=== PATIENT | male | born 1980 | race African-American/Black ===

== ENCOUNTER → 2022-12-04 13:23 | Outpatient (BNVA) | payer OTHER, SELFPAY | PROVIDERS: PCP Family Medicine; Visit Provider Urology | DX: Z31.69 Encounter for other general counseling and advice on procreation (principal); N46.9 Male infertility, unspecified | CPT/HCPCS: 99202 ==

== ENCOUNTER 2023-01-02 15:04 | Outpatient (REF) | payer OTHER, SELFPAY ==
--- NOTE | ~2023-01-02 | US_ITS ---
EXAMINATION: US SCROTUM CLINICAL INFORMATION: Male infertility, unspecified. COMPARISON: None available. TECHNIQUE: A sonogram of the scrotum was performed assessing sanchez-scale appearance and color Doppler flow. Spectral Doppler analysis of the arterial and venous flow were performed in the testes bilaterally. FINDINGS: RIGHT: Right testicle measures 3.4 x 1.6 x 1.8 cm, volume 5.1 mL. No focal testicular parenchymal lesions are visualized. Spectral Doppler analysis of the arterial and venous flow is normal in the right testis. Right epididymal head is normal in size. No right hydrocele or varicocele is seen. Right epididymal Doppler flow is normal. LEFT: Left testicle measures 2.8 x 1.3 x 2.1 cm, volume 4.0 mL. No focal testicular parenchymal lesions are visualized. Spectral Doppler analysis of the arterial and venous flow is normal in the left testis. Left epididymal head is normal in size. No left hydrocele is seen. There are left varicoceles. Left epididymal Doppler flow is normal. US/US scrotum IMPRESSION: There are left varicoceles. The examination is otherwise unremarkable.
== END 2023-01-02 15:05 | disposition home or self-care (01) ==
LOC: HO.US 15:04
PROVIDERS: PCP Family Medicine; Visit Provider Urology
DX: N46.9 Male infertility, unspecified (principal)
CPT/HCPCS: 76870

== ENCOUNTER → 2023-01-15 09:54 | Outpatient (BNVA) | payer OTHER, SELFPAY | PROVIDERS: PCP Family Medicine; Visit Provider Urology | DX: N46.9 Male infertility, unspecified (principal); N46.01 Organic azoospermia | CPT/HCPCS: 99212 ==

== ENCOUNTER → 2023-02-08 12:56 | Outpatient (BNVA) | payer OTHER, SELFPAY | PROVIDERS: PCP Family Medicine; Visit Provider Urology | DX: N46.01 Organic azoospermia (principal) | CPT/HCPCS: 99212 ==

== ENCOUNTER 2023-03-20 08:02 | Outpatient (REF) | payer OTHER, SELFPAY ==
[2023-03-20 08:07] VITALS: BMI 27.7
[2023-03-20 08:08] VITALS: BP 111/64; PULSE 64; RESP 16; TEMP 36.2; O2SAT 96
[2023-03-20 09:20] VITALS: BP 106/56; PULSE 50; RESP 16; O2SAT 98
--- NOTE | 2023-03-20 09:49 | W.PM.OPN ---
Operative Note Operative Note Date of Service: 03/20/23 Narrative: PreOperative Diagnosis: Male infertility Post Operative Diagnosis: Male infertility Procedure: Testicular biopsy Surgeon: Dr Rafiq Salcido Anesthesia: Local Indications for procedure: Male infertility with no sperm seen Procedure: After informed consent was verified the patient was brought to the operating room and placed in a supine position. Anesthesia was administered per protocol. The patient was prepped and draped in a sterile fashion. Safety pause time-out was performed. Local anesthetic infiltrated into left testicular cord and skin on scrotum. Small incision made on the scrotal skin. Dissection performed down to the level of the tunica. Tunica opened. Four 0 Vicryl used as stay sutures on testicle. Testicle open small amount of tissue removed. 4-0 Vicryl stay suture tied Vicryl suture then used to close opening in tunic Skin closed with interrupted 4-0 chromic suture Patient tolerated procedure well was instructed on postprocedure care. Pathology: Testicular biopsy Drains: []
== END 2023-03-20 08:03 | disposition home or self-care (01) ==
LOC: HO.MS 08:02
PROVIDERS: PCP Family Medicine; Visit Provider Urology
PROC: (CPT 54505; principal; 2023-03-20 08:00)
DX: N46.01 Organic azoospermia (principal); N46.9 Male infertility, unspecified
CPT/HCPCS: 54505; 88305

== ENCOUNTER → 2023-03-28 13:46 | Outpatient (BNVA) | payer OTHER, SELFPAY | PROVIDERS: PCP Family Medicine; Visit Provider Urology ==

== ENCOUNTER 2023-08-09 12:06 | Outpatient (AMB) | payer OTHER, SELFPAY ==
[2023-08-09 12:15] VITALS: BP 106/70; PULSE 68; O2SAT 98; BMI 27.2
--- NOTE | 2023-08-09 12:15 | MHC.PC.OV ---
Vital Signs 08/09/23 12:15 Height 5 ft 10 in Weight 189 lb 4 oz BMI 27.2 BP 106/70 Blood Pressure Location Lt brachial Position Sitting Pulse 68 Pulse Source Pulse Oximeter Pulse Oximetry (%) 98 Oxygen Delivery Method Room Air Intake Visit Reasons: CPE Intake Note: Patient is here for a physical today. Patient would like to talk about referral about IVF referral. Patient would like a flu shot today. Allergies aspirin Allergy (Mild, Verified 08/09/23 12:17) Swelling shellfish Allergy (Mild, Uncoded 08/09/23 12:17) Swelling Tobacco use date assessed: 08/09/23 Dental Screening Dental Screen Date: 08/09/23 Did you have a dental visit in the last 12 months?: Yes Did you have a dental problem in the last 6 months where you did not have access to dental care?: No Was dental information given to patient?: Patient has dentist HPI CPE HPI Details 42 y/o male presents for a CPE with f/u labs and health maintenance. No recent labs to review. [facility] Social History Housing: House Patient Tobacco Use Status: Never used Tobacco e-Cigarette/Vaping Use: Never Used Second Hand Smoke Exposure: No service: Yes Current occupational status: employed Current occupation: [employer] Cognitive needs: No Hearing needs: No Vision needs: No Review of Systems Const Denies chills, Denies fatigue, Denies fever(s), Denies headache(s) and Denies weakness Eyes Denies change in vision ENT Denies dizziness, Denies headache(s), Denies hearing loss, Denies nasal congestion, Denies sinus pain, Denies sinus pressure and Denies sore throat Card Denies chest pain, Denies lightheadedness, Denies dyspnea and Denies other (palpitations) Resp Denies cough, Denies dyspnea and Denies wheezing GI Denies abdominal pain, Denies melena, Denies hematochezia, Denies change in bowel habits, Denies dyspepsia and Denies nausea Denies hematuria and Denies dysuria Musc Denies abnormal gait, Denies myalgias, Denies arthralgias, Denies numbness and Denies tingling Skin/Breast Denies rash, Denies unusual bruising and Denies wounds Neuro Denies abnormal gait, Denies dizziness, Denies headache(s), Denies memory loss, Denies numbness, Denies Sensory deficit (Neuro), Denies tingling and Denies weakness Psych Denies anxiety, Denies depression and Denies memory loss Endo Denies cold intolerance, Denies fatigue, Denies heat intolerance, Denies polydipsia and Denies polyuria Lang/Lymph Denies easy bleeding and Denies easy bruising Aller/Immun Denies wheezing Physical exam (Primary Care) Vital Signs: Last Vital Signs Pulse 68 08/09/23 12:15 BP 106/70 08/09/23 12:15 Pulse Ox 98 08/09/23 12:15 Oxygen Delivery Method Room Air 08/09/23 12:15 BMI result Body Mass Index 27.2 Tobacco/Smoking Status: Tobacco use Status Tobacco use date assessed 08/09/23 08/09/23 12:28 Patient Tobacco Use Status Never used Tobacco 08/09/23 12:28 e-Cigarette/Vaping Use Never Used 08/09/23 12:28 Const General: no acute distress, well developed, alert and awake Nutritional Appearance: well nourished Orientation/consciousness: patient oriented x3 HENMT Head: Yes normocephalic and Yes atraumatic Ears: hearing grossly normal bilaterally and TM's normal bilaterally General nose exam: Normal external nose present and Normal nares present Mouth: Normal oral and palatal mucosa present and moist mucous membranes Teeth and gingiva: dentition normal Throat: Yes posterior oropharynx normal Eyes General: appearance normal, both eyes and all related structures Pupils: Equal, round and reactive pupils present and Pupil accommodation reflex normal EOM: EOMs intact bilaterally Neck Neck: Yes normal visual inspection, Yes no lymphadenopathy and Yes trachea midline Thyroid: Thyroid normal Carotids: no bruits Lymphatic: no lymphadenopathy noted Chest Chest palpation & inspection: normal inspection of the chest Resp Effort & Inspection: normal respiratory effort Auscultation: clear to auscultation bilaterally Cardio Rate: regular rate Rhythm: regular rhythm Heart sounds: S1 normal heart sound present, S2 normal heart sound present, no gallops, no murmurs and no rubs Bruits: no abdominal aortic bruits and no carotid bruits GI Palpation (GI): No Abdominal aortic bruit present, Soft to palpation, nontender, No hepatosplenomegaly present and No Rebound tenderness present Auscultation: normal bowel sounds General: Yes no CVA tenderness Back/Spine/Pelvis Back: no CVA tenderness Cervical Spine: cervical ROM normal and No Cervical spine tenderness Thoracic/Lumbar Spine: thoraco-lumbar ROM normal, No pain with thoraco-lumbar ROM, No thoracic spinal tenderness and No lumbar spinal tenderness Skin Lesions: no lesions Rashes: no rashes Trauma: no lacerations or abrasions Wounds: no wounds Nails: normal Neuro General: patient oriented x3 Cranial nerves: Yes Equal, round and reactive pupils present Cognition (Neuro): normal cognition Gait exam (Neuro): Normal gait present Motor exam (neuro): 5/5 motor strength present throughout Sensory Exam: No Sensory deficit (Neuro) Deep tendon reflexes (DTR's): Right patellar reflex intensity grade: 2+ and Left patellar reflex intensity grade: 2+ Extrem General: Yes normal to inspection and No edema Psych Appearance: grossly normal Affect: normal affect Attitude: cooperative Thought process: Normal thought process present Assessment and Plan Assessment & Plan (1) Adult general medical exam: Code(s): Z00.00 - Encounter for general adult medical examination without abnormal findings Plan: 42-year-old?male?presents?for?complete?physical?exam Encouraged?healthy?diet?with?active?lifestyle?and?plenty?of?exercise (2) Infertility counseling: Code(s): Z31.69 - Encounter for other general counseling and advice on procreation Plan: Followed?by?urology?an?infertility?specialist?in?[place]. Will?discuss?referral?to?IVF?via?his?infertility?specialist. 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 Medications: Discontinued oxycodone-acetaminophen 5-325 mg Partial Fill upon patient request. Discontinued Reason: Patient Completed Course 1 tab PO Q4H 7 days PRN 14 tabs 0RF pain (scale score 4-6) Coding Level of Care Code Est Pt Level 3 (78073) Est Pt Prev Care 40-64y(77299) Diagnoses Adult general medical exam Z00.00 Infertility counseling Z31.69 Male pattern baldness L64.9
== END 2023-08-09 12:50 | disposition home or self-care (01) ==
PROVIDERS: PCP Family Medicine; Visit Provider Family Medicine
DX: Z00.00 Encounter for general adult medical examination without abnormal findings (principal); L64.9 Androgenic alopecia, unspecified
CPT/HCPCS: 99396

== ENCOUNTER 2023-08-13 10:16 | Outpatient (REF) | payer OTHER, SELFPAY ==
[2023-08-13 12:17] LABS: Prostate Specific Antigen Scr 0.71 ng/mL (<0.05-4.0)
[2023-08-13 12:18] LABS: Alanine Aminotransferase 16 U/L (0-40); Albumin Level 4.1 g/dL (3.5-5.0); Alkaline Phosphatase 54 U/L (39-117); Anion Gap 10 (12-20); Aspartate Amino Transferase 25 U/L (5-37); Bilirubin Total 0.4 mg/dL (0.0-1.0); Blood Urea Nitrogen 12 mg/dL (9-16); Calcium 9.4 mg/dL (8.4-10.2); Carbon Dioxide 28 mmol/L (22-29); Chloride 106 mmol/L (96-108); Cholesterol 185 mg/dL (<200); Estimated Glomerular Filt Rate > 60; Glucose Fasting 84 mg/dL (60-99); HDL Cholesterol 59 mg/dL (>40); LDL Cholesterol Calculated 115 mg/dL (<100); Potassium 4.4 mmol/L (3.3-5.1); Sodium 140 mmol/L (135-145); TSH reflex Free T4 0.68 uIU/mL (0.32-4.0); Total Protein 7.6 g/dL (6.5-8.0); Triglycerides 59 mg/dL (<150)
[2023-08-13 14:25] LABS: Appearance Urine Clear; Color Urine Yellow; Glucose Urine UA Negative (Negative); Leukocyte Esterase Urine Negative (Negative); Nitrite Urine Negative (Negative); Specific Gravity - Urine 1.015 (1.005-1.025); Urine Blood Negative (Negative); Urine Ketones Negative (Negative); Urine Protein Negative (Neg-Trace)
[2023-08-13 15:33] LABS: Microalbumin Urine < 5.0 mg/L
== END 2023-08-13 10:17 | disposition home or self-care (01) ==
LOC: HO.WFDLDS 10:16
PROVIDERS: Visit Provider Family Medicine
DX: Z00.00 Encounter for general adult medical examination without abnormal findings (principal); I10 Essential (primary) hypertension; Z12.5 Encounter for screening for malignant neoplasm of prostate
CPT/HCPCS: 36415; 80053; 80061; 81003; 82043; 82570; 84153; 84443

== ENCOUNTER 2023-09-24 12:37 | Outpatient (AMB) | payer OTHER, SELFPAY ==
--- NOTE | 2023-09-24 12:34 | MHC.PC.OV ---
Intake Visit Reasons: f/u CPE-labs Intake Note: Patient is following up on labs today. Allergies aspirin Allergy (Mild, Verified 09/24/23 12:34) Swelling shellfish Allergy (Mild, Uncoded 09/24/23 12:34) Swelling Tobacco use date assessed: 09/24/23 HPI f/u CPE-labs HPI Details Patient?follows?up?today?by?telemedicine?to?review?CPE-labs?and?screening?for?prostate?cancer Renal?function,?blood?sugar,?lipids?and?urine?studies?all?within?normal?limits PSA?is?0.71.??Within?normal?limits PFSH Social History Housing: House Patient Tobacco Use Status: Never used Tobacco e-Cigarette/Vaping Use: Never Used Second Hand Smoke Exposure: No service: Yes Current occupational status: employed Current occupation: [employer] Cognitive needs: No Hearing needs: No Vision needs: No Review of Systems Const Denies chills, Denies fatigue, Denies fever(s), Denies headache(s) and Denies weakness ENT Denies dizziness and Denies headache(s) Card Denies chest pain, Denies lightheadedness, Denies dyspnea and Denies other (Palpitations) Resp Denies cough, Denies dyspnea, Denies wheezing and Denies other ( shortness of breath) Musc Denies numbness and Denies tingling Neuro Denies dizziness, Denies headache(s), Denies numbness, Denies tingling, Denies paresthesias and Denies weakness Psych Denies anxiety and Denies depression Endo Denies fatigue Aller/Immun Denies wheezing Physical exam (Primary Care) Tobacco/Smoking Status: Tobacco use Status Tobacco use date assessed 09/24/23 09/24/23 12:36 Patient Tobacco Use Status Never used Tobacco 09/24/23 12:36 e-Cigarette/Vaping Use Never Used 09/24/23 12:36 Telehealth Telehealth Location of provider rendering services: practice address Location of patient: address on file Patient Identification confirmed using: Name, : Yes Telehealth method: voice only Patient verbally consented to treatment: Yes Patient verbally consented to billing insurance company: Yes Patient informed of any privacy concerns related to visit: Yes Minutes spent on Phone/Video with Pt.: 5 Assessment and Plan Assessment & Plan (1) Screening for prostate cancer: Code(s): Z12.5 - Encounter for screening for malignant neoplasm of prostate Plan: A1c?within?normal?limits Normal?stream Will?continue?screening Orders: Orders Microalbumin, Random (w Creat) 11 Months I10 - Essential (primary) hypertension Prostate Specific Antigen Scr 11 Months Z12.5 - Encounter for screening for malignant neoplasm of prostate Comprehensive [place]. Panel Fast 11 Months Z00.00 - Encounter for general adult medical examination without abnormal findings Lipid Panel 11 Months Z00.00 - Encounter for general adult medical examination without abnormal findings TSH reflex Free T4 11 Months Z00.00 - Encounter for general adult medical examination without abnormal findings UA and rflx microscopic 11 Months Z00.00 - Encounter for general adult medical examination without abnormal findings Coding Level of Care Code Tele Est Pt Level 2 (40646) Diagnoses Screening for prostate cancer Z12.5
== END 2023-09-24 17:00 ==
LOC: HO.HMGFM 12:37
PROVIDERS: PCP Family Medicine; Visit Provider Family Medicine
DX: I10 Essential (primary) hypertension (principal); Z12.5 Encounter for screening for malignant neoplasm of prostate
CPT/HCPCS: 99212

== ENCOUNTER 2024-08-20 09:10 | Outpatient (REF) | payer OTHER, SELFPAY ==
[2024-08-20 10:35] LABS: Appearance Urine Clear; Color Urine Yellow; Glucose Urine UA Negative (Negative); Leukocyte Esterase Urine Negative (Negative); Nitrite Urine Negative (Negative); PH 6.5 (5.0-9.0); Specific Gravity - Urine 1.015 (1.005-1.025); Urine Blood Negative (Negative); Urine Ketones Negative (Negative); Urine Protein Negative (Neg-Trace)
[2024-08-20 11:14] LABS: Alanine Aminotransferase 31 U/L (0-40); Alkaline Phosphatase 57 U/L (39-117); Anion Gap 10 (12-20); Aspartate Amino Transferase 52 U/L (5-37); Bilirubin Total 0.7 mg/dL (0.0-1.0); Blood Urea Nitrogen 16 mg/dL (9-16); Calcium 9.6 mg/dL (8.4-10.2); Carbon Dioxide 27 mmol/L (22-29); Chloride 104 mmol/L (96-108); Cholesterol 195 mg/dL (<200); Estimated Glomerular Filt Rate > 60; Glucose Fasting 92 mg/dL (60-99); HDL Cholesterol 58 mg/dL (>40); LDL Cholesterol Calculated 123 mg/dL (<100); Potassium 4.2 mmol/L (3.3-5.1); Sodium 137 mmol/L (135-145); Total Protein 7.6 g/dL (6.5-8.0); Triglycerides 71 mg/dL (<150)
[2024-08-20 11:24] LABS: Prostate Specific Antigen Scr 0.53 ng/mL (<0.05-4.0)
[2024-08-20 11:35] LABS: TSH reflex Free T4 1.01 uIU/mL (0.32-4.0)
[2024-08-20 11:52] LABS: Microalbumin Urine < 5.0 mg/L
== END 2024-08-20 09:11 | disposition home or self-care (01) ==
LOC: HO.WFDLDS 09:10
PROVIDERS: Visit Provider Family Medicine
DX: Z00.00 Encounter for general adult medical examination without abnormal findings (principal); I10 Essential (primary) hypertension; Z12.5 Encounter for screening for malignant neoplasm of prostate
CPT/HCPCS: 36415; 80053; 80061; 81003; 82043; 82570; 84153; 84443

== ENCOUNTER 2024-08-25 07:57 | Outpatient (AMB) | payer OTHER, SELFPAY ==
--- NOTE | 2024-08-25 07:58 | A.OFFPC_ITS ---
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 Allergies aspirin Allergy (Mild, Verified 08/25/24 08:17) Swelling shellfish Allergy (Mild, Uncoded 09/24/23 12:34) Swelling Medication List - Last Reconciled 08/25/24 by MIKE Forman- No Known Home Meds Tobacco use date assessed: 08/25/24 Dental Screening Dental Screen Date: 08/25/24 Did you have a dental visit in the last 12 months?: Yes Did you have a dental problem in the last 6 months where you did not have access to dental care?: No Was dental information given to patient?: Patient has dentist HPI HPI Comments History of Present Illness Details 43 y/o M with alopecia, Sertoli cell-onl y syndrome Health Maintenance Flu declined Tdap declined [facility]ists IVF in [place] Here today for CPE Feels well. Exercises daily. Optho - no concerns, no corrective lenses Sleep - good Diet - good Reviewed: Labs 08/20/24 WNL except AST 52, LDL 123 Plan Refer to nutrition Repeat labs 1 year CPE 1 year with james Waldron [facility] Social History Housing: House Patient Tobacco Use Status: Never used Tobacco e-Cigarette/Vaping Use: Never Used Second Hand Smoke Exposure: No service: Yes Current occupational status: employed Current occupation: [employer] Cognitive needs: No Hearing needs: No Vision needs: No Questionnaire PHQ-9 Over the last 2 weeks, how often have you been bothered by any of the following problems? 1. Little interest or pleasure in doing things: not at all 2. Feeling down, depressed, or hopeless: not at all 3. Trouble falling or staying asleep, or sleeping too much: not at all 4. Feeling tired or having little energy: not at all 5. Poor appetite or overeating: not at all 6. Feeling bad about yourself - or that you are a failure or have let yourself or your family down: not at all 7. Trouble concentrating on things, such as reading the newspaper or watching television: not at all 8. Moving or speaking so slowly that other people could have noticed. Or the opposite - being so fidgety or restless that you have been moving around a lot more than usual: not at all 9. Thoughts that you would be better off or of hurting yourself in some way: not at all Total score: 0 Depression Screening Interpretation: Negative Depression Screening Done: Yes 83933 - PHQ-9 Billing: Yes Source: Developed by Drs. Alex Davenport, Linsey Gil, Jean Carlos Adams and colleagues, with an educational ketan from [employer]. Thrive Questionnaire Date Thrive assessed: 08/25/24 I am a: Patient What is your living situation today?: I have a steady place to live Within the past 12 months, did the food you bought not last and you didn't have the money to get more?: Never true Within the past 12 months, did you worry whether your food would run out before you got money to buy more?: Never true Do you have trouble paying for medicines?: No Do you have trouble getting transportation to medical appointments?: No Do you have trouble paying your heating and electricity bill?: No Do you have trouble taking care of your child, family member or friend?: No Do you have trouble with day-to-day activities such as bathing, preparing meals, shopping, managing finances, etc.?: No Are you currently unemployed and looking for a job?: No Are you interested in more education?: No Please select the resources that you would like help with: None Currently or been in a relationship where the following occur: No concerns reported THRIVE Score: 0 AUDIT C Alcohol Use Questionnaire (AUDIT-C) 1. How often do you have a drink containing alcohol?: Monthly or less 2. How many drinks containing alcohol do you have on a typical day when you are drinking?: 1 or 2 3. How often do you have six or more drinks on one occasion?: Never Total Score: 1 Score Reviewed/Action Taken: Yes JOSE-7 AMB Questionnaire JOSE-7 Date JOSE - 7 assessed: 08/25/24 Feeling nervous, anxious, or on edge: 0 = Not at all Not being able to stop or control worryin = Not at all Worrying too much about different things: 0 = Not at all Trouble relaxin = Not at all Being so restless that it is hard to sit still: 0 = Not at all Becoming easily annoyed or irritable: 0 = Not at all Feeling afraid as if something awful might happen: 0 = Not at all Total JOSE-7 score (0-4 normal; 5-9 mild; 10-14 moderate; 15-21 severe): 0 Source: Developed by Drs. Alex Davenport, Linsey Gil, Jean Carlos Adams and colleagues, with an educational ketan from [employer]. JOSE-7 Assessment Billing JOSE-7 Assessment Tool: JOSE-7 Assessment 09520 Review of Systems Const Details: Constitutional: Denies fever. Skin: Denies rash. Eye: Denies eye pain. ENMT: Denies sore throat and nasal congestion. Respiratory: Denies shortness of breath and cough. Gastrointestinal: Denies nausea, vomiting or abdominal pain. Cardiovascular: Denies chest pain and syncope. Genitourinary: Denies dysuria. Musculoskeletal: Denies back pain and extremity pain. Neurologic: Denies headaches, confusion, and weakness. Psychiatric: Denies suicidal thoughts and substance abuse. Allergy/ Immunologic: Denies impaired immunity. Physical exam (Primary Care) Vital Signs: Last Vital Signs Pulse 80 08/25/24 08:08 Resp 13 08/25/24 08:08 BP 118/68 08/25/24 08:08 Pulse Ox 97 08/25/24 08:08 Oxygen Delivery Method Room Air 08/25/24 08:08 BMI result Body Mass Index 28.0 Tobacco/Smoking Status: Tobacco use Status Tobacco use date assessed 08/25/24 08/25/24 08:10 Patient Tobacco Use Status Never used Tobacco 08/25/24 07:58 e-Cigarette/Vaping Use Never Used 08/25/24 07:58 PHQ-9: PHQ-9 Score PHQ-9: Total score 0 08/25/24 08:10 Depression Screening Interpretation: Negative Thrive Assessment: Date of Thrive Assessment Date Thrive assessed 08/25/24 08/25/24 08:10 Currently or been in a relationship where the following occur: No concerns reported Const Other: General: Well developed, well nourished, in no acute distress. Appears stated age. Head: Normocephalic, atraumatic. Eyes: Pupils are equal, round and reactive to light and accommodation. Conjunctivae are clear. Vision grossly normal. Ears: TMs clear AU, EACS WNL Nose: Patent, without discharge. Mouth: There are no ulcers or lesions noted. No inflammation, no post nasal drip, no plaques nor exudates. Neck: Supple, no adenopathy or thyromegaly. Lungs: Clear to auscultation bilaterally. No rales, rhonchi or wheeze noted. Good air flow in all neely. Heart: Regular rate and rhythm. No murmurs, click, rubs or gallops are noted. Abdomen: Bowel sounds present in all quadrants. The abdomen is soft, nontender, with no masses or organomegaly noted. No hernias are noted. Musculoskeletal: Joints are nontender, without swelling, redness, or effusions. Range of motion is observed to be normal. Pulses: Peripheral pulses are equal and palpable bilaterally. Extremities: No clubbing, cyanosis nor edema is noted. Neurologic: Gait and station normal. Cranial Nerves 2-12 intact. Motor strength grossly symmetrical and intact. No sensory loss. Balance normal. Skin: No rashes, ulcers, or lesions noted. Turgor is good. Skin color is good. Hair and nails are without abnormalities. Psych: Normal eye contact, affect and mood appropriate, and normal interactions. Patient is alert and appropriate to context. 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 (2) Borderline high cholesterol: Code(s): E78.9 - Disorder of lipoprotein metabolism, unspecified Category: Medical Plan: . (3) Elevated LFTs: Code(s): R79.89 - Other specified abnormal findings of blood chemistry Category: Medical Plan: . (4) Laboratory exam ordered as part of routine general medical examination: Code(s): Z00.00 - Encounter for general adult medical examination without abnormal findings Category: Medical Plan: . (5) Male infertility: Code(s): N46.9 - Male infertility, unspecified Category: Medical Plan: . Orders: Orders Comprehensive [place]. Panel Fast 08/08/25 E78.9 - Disorder of lipoprotein metabolism, unspecified, R79.89 - Other specified abnormal findings of blood chemistry, Z00.00 - Encounter for general adult medical examination without abnormal findings Microalbumin, Random (w Creat) 08/08/25 E78.9 - Disorder of lipoprotein metabolism, unspecified, R79.89 - Other specified abnormal findings of blood chemistry, Z00.00 - Encounter for general adult medical examination without abnormal findings TSH reflex Free T4 08/08/25 E78.9 - Disorder of lipoprotein metabolism, unspecified, R79.89 - Other specified abnormal findings of blood chemistry, Z00.00 - Encounter for general adult medical examination without abnormal findings Hemoglobin A1c 08/08/25 E78.9 - Disorder of lipoprotein metabolism, unspecified, R79.89 - Other specified abnormal findings of blood chemistry, Z00.00 - Encounter for general adult medical examination without abnormal findings Lipid Panel 08/08/25 E78.9 - Disorder of lipoprotein metabolism, unspecified, R79.89 - Other specified abnormal findings of blood chemistry, Z00.00 - Encounter for general adult medical examination without abnormal findings PSA, Ultra Sensitive 08/08/25 E78.9 - Disorder of lipoprotein metabolism, unspecified, R79.89 - Other specified abnormal findings of blood chemistry, Z00.00 - Encounter for general adult medical examination without abnormal findings Referrals Nutrition/Dietitian Referral E78.9 - Disorder of lipoprotein metabolism, unspecified, R79.89 - Other specified abnormal findings of blood chemistry Patient Instructions: To reduce low-density lipoprotein (LDL) cholesterol, you can try making lifestyle changes to your diet, exercise, and other habits: Eat a heart-healthy diet Limit saturated and trans fats, and eat more foods with healthy fats, like nuts, seeds, and unsaturated oils. You can also try eating more soluble fiber, which can help reduce the amount of cholesterol your body absorbs. Foods high in soluble fiber include whole grains, fruits, and legumes. Exercise regularly Aim for at least 150 minutes of exercise per week, such as walking, swimming, or cycling. Maintain a healthy weight Losing weight can help lower LDL cholesterol, especially if you are overweight or obese. Manage stress Chronic stress can raise LDL cholesterol, so try to find healthy ways to manage it. Quit smoking Smoking can raise cholesterol and increase the risk of serious health problems. Get enough sleep Aim for 7 to 9 hours of sleep per night. You should also limit foods with cholesterol, which are found in animal products like liver, egg yolks, and whole milk dairy products. Health screenings for men ages 40 to 64 You should visit your health care provider regularly, even if you feel healthy. The purpose of these visits is to: Screen for medical issues Assess your risk for future medical problems Encourage a healthy lifestyle Update vaccinations and other preventive care services Help you get to know your provider in case of an illness Information Even if you feel fine, you should still see your provider for regular checkups. These visits can help you avoid problems in the future. For example, the only way to find out if you have high blood pressure is to have it checked regularly. High blood sugar and high cholesterol level also may not have any symptoms in the early stages. Simple blood tests can check for these conditions. There are specific times when you should see your provider or receive specific health screenings. The [place] Preventive Services Task Force publishes a list of recommended screenings. Below are screening guidelines for men ages 40 to 64. BLOOD PRESSURE SCREENING Have your blood pressure checked at least once every year. Watch for blood pressure screenings in your area. Ask your provider if you can stop in to have your blood pressure checked. Ask your provider if you need your blood pressure checked more often if: You have diabetes, heart disease, kidney problems, or are overweight or have certain other health conditions You have a first-degree relative with high blood pressure You are Black Your blood pressure top number is from 120 to 129 mm Hg, or the bottom number is from 70 to 79 mm Hg If the top number is 130 mm Hg or greater or the bottom number is 80 mm Hg or greater, this is considered stage 1 hypertension. Schedule an appointment with your provider to learn how you can lower your blood pressure. Effects of age on blood pressure CHOLESTEROL SCREENING Cholesterol screening should begin at age 35 for men with no known risk factors for coronary heart disease. Repeat cholesterol screening should take place: Every 5 years for men with normal cholesterol levels More often if changes occur in lifestyle (including weight gain and diet) More often if you have diabetes, heart disease, kidney problems, or certain other conditions COLORECTAL CANCER SCREENING If you are under age 45, talk to your provider about getting screened. You may need to be screened if you have a strong family history of colon cancer or polyps. Screening may also be considered if you have risk factors such as a history of inflammatory bowel disease or polyps. If you are age 45 to 75, you should be screened for colorectal cancer. There are several screening tests available: A stool-based fecal occult blood (gFOBT) or fecal immunochemical test (FIT) every year A stool sDNA test every 1 to 3 years Flexible sigmoidoscopy every 5 years or every 10 years with stool testing FIT done every year CT colonography (virtual colonoscopy) every 5 years Colonoscopy every 10 years You may need a colonoscopy more often if you have risk factors for colorectal cancer, such as: Ulcerative colitis A personal or family history of colorectal cancer A history of growths in your colon called adenomatous polyps DENTAL EXAM Go to the dentist once or twice every year for an exam and cleaning. Your dentist will evaluate if you have a need for more frequent visits. DIABETES SCREENING All adults who do not have risk factors for diabetes should be screened starting at age 35 and repeated every 3 years. If you have other risk factors for diabetes, such as a first degree relative with diabetes, overweight or obesity, high blood pressure, prediabetes, or a history of heart disease, you may be tested more often. If you are overweight and have other risk factors, such as high blood pressure and are planning to become , screening is recommended. EYE EXAM Have an eye exam every 2 to 4 years ages 40 to 54 and every 1 to 3 years ages 55 to 64. Your provider may recommend more frequent eye exams if you have vision p roblems or glaucoma risk. Have an eye exam that includes an examination of your retina (back of your eye) at least every year if you have diabetes. IMMUNIZATIONS Commonly needed vaccines include: Flu shot: get one every year COVID-19 vaccine: ask your provider what is best for you Tetanus-diphtheria and acellular pertussis (Tdap) vaccine: have as one of your tetanus-diphtheria vaccines if you did not receive it as an adolescent Tetanus-diphtheria: have a booster (or Tdap) every 10 years Varicella vaccine: receive 2 doses if you never had chickenpox or the varicella vaccine and were born in 1980 or after Hepatitis B vaccine: receive 2, 3, or 4 doses, depending on your exact circumstances, if you did not receive these as a child or adolescent, until age 59 Shingles (herpes zoster) vaccine: at or after age 50 Ask your provider if you should receive other immunizations, especially if you have certain medical conditions, such as diabetes or are at increased risk for some diseases such as pneumonia. INFECTIOUS DISEASE SCREENING Screening for hepatitis C: all adults ages 18 to 79 should get a one-time test for hepatitis C. Screening for human immunodeficiency virus (HIV): all people ages 15 to 65 should get a one-time test for HIV. Depending on your lifestyle and medical history, you may need to be screened for infections such as syphilis, chlamydia, and other infections. LUNG CANCER SCREENING You should have an annual screening for lung cancer with low-dose computed tomography (LDCT) if: You are age 50 to 80 years AND You have a 20 pack-year smoking history AND You currently smoke or have quit within the past 15 years OSTEOPOROSIS SCREENING If you are age 50 to 64 and have risk factors for osteoporosis, you should discuss screening with your provider. Risk factors can include long-term steroid use, low body weight, smoking, heavy alcohol use, having a fracture after age 50, or a family history of hip fracture or osteoporosis. Osteoporosis PHYSICAL EXAM All adults should visit their provider from time to time, even if they are healthy. The purpose of these visits is to: Screen for diseases Assess risk of future medical problems Encourage a healthy lifestyle Update vaccinations and other preventive care services Maintain a relationship with a provider in case of an illness Your height, weight, and body mass index (BMI) should be checked at every exam. During your exam, your provider may ask you about: Depression and anxiety Diet and exercise Alcohol and tobacco use Safety, such as use of seat belts and smoke detectors Your medicines and risk for interactions PROSTATE CANCER SCREENING If you're 55 through 69 years old, before having the test, talk to your provider about the pros and cons of having a PSA test. Ask about: Whether screening decreases your chance of dying from prostate cancer. Whether there is any harm from prostate cancer screening, such as side effects from testing or overtreatment of cancer when discovered. Whether you have a higher risk of prostate cancer than others. If you are age 55 or younger, screening is not generally recommended. You should talk with your provider about if you have a higher risk for prostate cancer. Risk factors include: Having a family history of prostate cancer (especially a brother or father) Being If you choose to be tested, the PSA blood test is repeated over time (yearly or less often), though the best frequency is not known. Prostate examinations are no longer routinely done on men with no symptoms. Prostate cancer SKIN EXAM Your provider may check your skin for signs of skin cancer, especially if you're at high risk. People at high risk include those who have had skin cancer before, have close relatives with skin cancer, or have a weakened immune system. TESTICULAR EXAM The [place] Preventive Services Task Force (USPSTF) now recommends against performing testicular self-exams. Doing testicular self-exams has been shown to have little to no benefit.
[2024-08-25 08:08] VITALS: BP 118/68; PULSE 80; RESP 13; O2SAT 97; BMI 28.0
== END 2024-08-25 08:30 | disposition home or self-care (01) ==
PROVIDERS: PCP Family Medicine; Visit Provider Nurse Practitioner Family
DX: Z00.00 Encounter for general adult medical examination without abnormal findings (principal); E78.9 Disorder of lipoprotein metabolism, unspecified; R79.89 Other specified abnormal findings of blood chemistry; N46.9 Male infertility, unspecified

== ENCOUNTER → 2024-08-25 07:57 | Outpatient (BNVA) | payer OTHER, SELFPAY | PROVIDERS: PCP Family Medicine; Visit Provider Nurse Practitioner Family | DX: Z00.00 Encounter for general adult medical examination without abnormal findings (principal); E78.9 Disorder of lipoprotein metabolism, unspecified; R79.89 Other specified abnormal findings of blood chemistry; N46.9 Male infertility, unspecified | CPT/HCPCS: 96127 ==

== ENCOUNTER 2024-09-23 12:54 | Outpatient (AMB) | payer OTHER, SELFPAY ==
--- OUTSIDE RECORDS SUMMARY | 2024-09-23 12:57 | XMS_ITS ---
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 This section includes the names of all active insurance providers for the patient. Insurance Provider Type of Coverage Plan Name Start of Policy Coverage End of Policy Coverage Group Number Member ID Insurance Provider's Telephone Number Policy Cochran's Name Patient's Relationship to Policy Cochran [employer] POINT OF SERVICE [employer] Nov 02, 2008 [id number] NADER LEI CALVO PATIENT [employer] RX PRESCRIPT ION [employer] [facility] [place] May 23, 2009 [id number] NADER CALVOLEI PATIENT [facility] RE DODA* Oct 08, 2017 DODA [id number] [phone] BARITA FIGUEROA PATIENT [facility] 2018 PRIME REMOT E Oct 08, 2017 [id number] [phone] RITA BA PATIENT Selected Encounter This section includes the information on record at [place] for the Encounter. Date/Time Encounter Type Encounter Description Reason Pro vider Source February 08, 2024 12:00 PM Outpatient Encounter PRIMARY CARE/MEDICINE IHE Encounter Template Text not used by [place] Plan of Treatment: Future Appointments (+ 6 months) and Future Tests (+/- 45 days) The Plan of Treatment section includes future care activities for the patient from all [place] treatmentfacilities. This section includes future appointments and future orders which are active, pending or scheduled. Future Appointments This section includes appointments that were scheduled to occur 6 months from the date of the Encounter, up to a maximum of 20 appointments. The data comes from all [place] treatment facilities. Appointment Date/Time Appointment Type Appointme nt Facility Name February 18, 2024 02:00 PM AMBULATORY - MEDICINE [facility] Lab Results: +/- 30 days of the encounter This section includes the Chemistry and Hematology Lab Results on record with [place] for the patient. Radiology Reports and Pathology Reports are provided separately, in subsequent sections. Lab Results This section contains the Chemistry/Hematology Results that were resulted 30 days before or 30 daysafter the date of the Encounter. Date/Time Source Result Type Result - Unit Interpretation Reference Range Comment February 11, 2024 09:22 AM [place] [place] BASIC METABOLIC PANEL (fasting) Specime n Type: SERUM No comment entered. Ordering Provider: KISHAN CADENA Report Released Date/Time: Nov 23, 2022 12:00 PM Reporting Lab: [facility] [address] [facility] [address] Performing Lab: [facility] [address] [facility] [address] UREA NITROGEN 14 mg/dL 7-25 GLUCOSE 99 mg/dL 65-100 SODIUM 138 mmol/L 135-145 POTASSIUM 4.0 mmol/L 3.5-5.0 CHLORIDE 104 mmol/L 100-110 CO2 26 meq/L 20-30 CREATININE, Serum 1.26 mg/dL 0.50-1.40 eGFR(CKD-EPI 2020) 73 mL/min >60 February 11, 2024 09:22 AM [place] [place] LIPID PANEL FASTING Specimen Type: SERUM No comment entered. Ordering Provider: KISHAN CADENA Report Released Date/Time: Nov 23, 2022 12:00 PM Reporting Lab: [facility] [address] [facility] [address] Performing Lab: [address] [address] CHOLESTEROL 189 mg/dL TRIGLYCERIDE 82 mg/dL 0-150 LDL calculated 115 mg/dL 0-129 CHOL/HDL 3.3 HDL CHOLESTEROL 58 mg/dL 40-60 February 11, 2024 09:22 AM [place] LIVER FUNCTION Specimen Type: SERUM No comment entered. Ordering Provider: KISHAN CADENA Report Released Date/Time: Nov 23, 2022 12:00 PM Reporting Lab: [facility] [address] [facility] [address] Performing Lab: [facility] [address] [facility] [address] PROTEIN,TOTAL 7.6 g/dL 6.0-8.3 ALBUMIN 3.8 g/dL 3.5-5.0 ALKALINE PHOSPHATASE 59 U/L 40-150 AST 26 U/L 5-34 ALT 20 U/L BILIRUBIN, TOTAL 0.6 mg/dL 0.2-1.2 February 11, 2024 09:22 AM [place] [place] HEMOGLOBIN A1C PANEL Specimen Type: BLOOD Comment: Values obtained from A1C measurements can vary. For atypical A1C assays, a reported value of 7.0 could actually be between 6.72 and 7.28 if measured by a reference method. A reported value of 9.0 could actually be between 8.73 and 9.27. Ref: http://www.ngs p.org/CAPdata. asp Ordering Provider: KISHAN CADENA Report Released Date/Time: Nov 23, 2022 12:00 PM Reporting Lab: [facility] [address] [address] Performing Lab: [facility] [address] [facility] [address] HEMOGLOBIN A1C 5.3 4.0-5.6 February 11, 2024 09:22 AM [place] [place] TSH Specimen Type: SERUM No comment entered. Ordering Provider: KISHAN CADENA Report Released Date/Time: Nov 23, 2022 12:00 PM Reporting Lab: [place] [facility] [address] [facility] [address] Performing Lab: [facility] [address] [address] TSH 1.45 u[IU]/mL 0.35-5.00 February 11, 2024 09:22 AM [place] CBC AND DIFF (AUTO) Specimen Type: BLOOD No comment entered. Ordering Provider: KISHAN CADENA Report Released Date/Time: Nov 23, 2022 12:00 PM Reporting Lab: [facility] [address] [address] Performing Lab: [facility] [address] [address] WBC 3.19 10*3/uL L 4.50-11.00 RBC 4.83 10*6/uL 4.23-5.66 HGB 14.8 g/dL 12.8-17 HCT 43.0 39.2-50.4 MCV 89.0 fL 82-99 MCHC 34.4 g/dL 30.8-35.1 PLT 220 10*3/uL 140-360 RDW-CV 11.5 L 12.0-16.0 Crook, Abs 0.26 10*3/uL L 0.30-1.10 MCH 30.6 pg 26.2-32.6 Neut % 33.5 L 43.7-75.8 Lymph % 53.3 H 14.0-42.3 Crook % 8.2 5.1-13.7 Eos % 3.8 0.4-6.8 Baso % 0.9 0.1-2.0 Neut, Abs 1.07 10*3/uL L 2.20-7.60 Lymph, Abs 1.70 10*3/uL 1.00-3.20 Eos, Abs 0.12 10*3/uL 0.03-0.44 Baso, Abs 0.03 10*3/uL 0.01-0.13 Immature Gran % 0.3 0.0-0.7 Immature Gran, Abs 0.01 10*3/uL 0.00-0.06 February 11, 2024 09:22 AM [place] PSA Specimen Type: SERUM No comment entered. Ordering Provider: KISHAN CADENA Report Released Date/Time: Nov 23, 2022 12:00 PM Reporting Lab: [facility] [address] [address] Performing Lab: [facility] [address] [facility] [address] PSA 0.52 ng/mL 0.00-4.00 February 11, 2024 09:22 AM [place] URINALYSIS Specimen Type: URINE Comment: If Glucose = >500 and Ketones are positive, please alert the Physician. Ordering Provider: KISHAN CADENA Report Released Date/Time: Nov 23, 2022 12:00 PM Reporting Lab: [facility] [address] [facility] [address] Performing Lab: [address] [address] UA COLOR Light-Yellow Yellow UA APPEARANCE Clear Clear UA GLUCOSE NEGATIVE mg/dL Negative UA KETONES NEGATIVE mg/dL Negative UA BLOOD NEGATIVE mg/dL Negative UA PROTEIN NEGATIVE mg/dL Negative UA NITRITE NEGATIVE mg/dL Negative UA BILIRUBIN NEGATIVE mg/dL Negative UA SPECIFIC GRAVITY 1.018 1.016-1.022 UA pH 7.5 5.0-9.0 UA UROBILINOGEN <2.0 mg/dL <2.0 UA LEUKOCYTE NEGATIVE Negative Social History: Smoking Status (Most current) and Tobacco Use (All prior to encounter date) This section includes the most current, and the historical, smoking and tobacco- related health factors from the [place] facility where the Encounter took place. Current Smoking Status This section includes the most current smoking, or tobacco-related health factor, from the [place] facility where the Encounter took place. Date/Time Current Smoking Status Comment Arely johnson Nov 23, 2022 11:18 AM [place] NEVER USED [facility] Tobacco Use History This section includes a history of the smoking, or tobacco-related health factors, that were collected on or before the date of the Encounter. The data comes from the [place] facility where the Encounter took place. Date/Time Smoking Status/Tobacco Use Comment Paramjit kvng Nov 21, 2021 11:20 AM [place]-TOBACCO NEVER USED [facility] Encounter Notes: All associated encounter notes This section contains the clinical notes associated to the Encounter. 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
--- OUTSIDE RECORDS SUMMARY | 2024-09-23 12:57 | XMS_ITS | Encounter Summary ---
Author Name [facility] [place] [facility] [place] Address [address] [place] [address] Care Team Providers Care Director Oracle Database Name Role Phone SEN BREWSTERA Primary Care Provider Unavailabl e Insurance Providers: [...] [employer] Nov 02, 2008 [id number] NADER CALVOLEI [place] PATIENT [employer] RX PRESCRIPT ION [employer] [place] May 23, 2009 [id number] NADER CALVOSERENITYGINA N PATIENT [facility] RE DODA* Oct 08, 2017 DODA [id number] BARITA FIGUEROA PATIENT [facility] 2018 PRIME REMOT E Oct 08, 2017 [id number] RITA BA PATIENT Selected Encounter This section includes the information on record at [place] for the Encounter. Date/Time Encounter Type Encounter Description Reason Pro vider Source Sep 24, 2023 12:00 AM Outpatient Encounter EVENT (HISTORICAL) IHE Encounter Template Text not used by [place] Plan of Treatment: Future Appointments (+ 6 months) and Future Tests (+/- 45 days) The Plan of Treatment section includes future care activities for the patient [facility] [place] [facility] This section includes future appointments and future orders which are active, pending or scheduled. Future Appointments This section includes appointments that were scheduled to occur 6 months from the date of the Encounter, up to a maximum of 20 appointments. The data comes from all [place] treatment facilities. Appointment Date/Time Appointment Type Appointme nt Facility Name February 18, 2024 02:00 PM AMBULATORY - MEDICINE [facility] Social History: Smoking Status (Most current) and Tobacco Use (All prior to encounter date) This section includes the most current, and the historical, smoking and tobacco- related health factors from the [place] facility where the Encounter took place. Current Smoking Status This section includes the most current smoking, or tobacco-related health factor, from the [place] facility where the Encounter took place. Date/Time Current Smoking Status Comment Arely johnson Nov 23, 2022 11:18 AM [place] NEVER USED [facility] Tobacco Use History This section includes a history of the smoking, or tobacco-related health factors, that were collected on or before the date of the Encounter. The data comes from the [place] facility where the Encounter took place. Date/Time Smoking Status/Tobacco Use Comment F kvng Nov 21, 2021 11:20 AM [place]-TO[place] NEVER USED [facility] Encounter Notes: All associated encounter notes This section contains the clinical notes associated to the Encounter. Date/Time Encounter Note(s) Provider Source Sep 24, 2023 12:00 AM NONVA NOTE: LOCAL TITLE: NON-VA OUTPATIENT NOTES STANDARD TITLE: NONVA NOTE DATE OF NOTE: SEP 24, 2023 ENTRY DATE: MARCH 06, 2024@12:59:25 AUTHOR: LILLIAN MCLAUGHLIN EXP COSIGNER: URGENCY: STATUS: COMPLETED VistA Imaging - Scanned Document SCANNED DOCUMENT SIGNATURE NOT REQUIRED Electronically Filed: 03/06/2024 by: LILLIAN DIAZ [facility]
--- OUTSIDE RECORDS SUMMARY | 2024-09-23 12:57 | XMS_ITS | Encounter Summary ---
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 Date/Time Encounter Type Encounter Description Reason Provider Source February 18, 2024 02:00 PM OFFICE O/P EST LOW 20 MIN PRIMARY CARE/MEDICINE ICD-10-CM F43.10 Post-traumatic stress disorder, unspecified KIEL BREWSTER [facility] Encounter Template Text not used by [facility] Assessments - Encounter Diagnoses This section includes the primary and secondary diagnoses documented for the Encounter. Date/Time Primary/Secondary Diagnosis Diagnosis Name Provider Source February 18, 2024 03:16 PM PRIMARY Post-traumatic stress disorder, unspecified KIEL BREWSTER [place] February 18, 2024 03:16 PM SECONDARY Gastro-esophageal reflux disease without esophagitis KIEL BREWSTER [facility] Lab Results: +/- 30 days of the encounter This section includes the Chemistry and Hematology Lab Results on record with [place] for the patient. Radiology Reports and Pathology Reports are provided separately, in subsequent sections. Lab Results This section contains the Chemistry/Hematology Results that were resulted 30 days before or 30 daysafter the date of the Encounter. Date/Time Source Result Type Result - Unit Interpretation Reference Range Comment February 11, 2024 09:22 AM [facility] BASIC METABOLIC PANEL (fasting) Specime n Type: SERUM No comment entered. Ordering Provider: KISHAN CADENA Report Released Date/Time: Nov 23, 2022 12:00 PM Reporting Lab: [address] [address] Performing Lab: [address] [address] UREA NITROGEN 14 mg/dL 7-25 GLUCOSE 99 mg/dL 65-100 SODIUM 138 mmol/L 135-145 POTASSIUM 4.0 mmol/L 3.5-5.0 CHLORIDE 104 mmol/L 100-110 CO2 26 meq/L 20-30 CREATININE, Serum 1.26 mg/dL 0.50-1.40 eGFR(CKD-EPI 2020) 73 mL/min >60 February 11, 2024 09:22 AM [facility] LIPID PANEL FASTING Specimen Type: SERUM No comment entered. Ordering Provider: KISHAN CADENA Report Released Date/Time: Nov 23, 2022 12:00 PM Reporting Lab: [address] [address] Performing Lab: [address] [address] CHOLESTEROL 189 mg/dL TRIGLYCERIDE 82 mg/dL 0-150 LDL calculated 115 mg/dL 0-129 CHOL/HDL 3.3 HDL CHOLESTEROL 58 mg/dL 40-60 February 11, 2024 09:22 AM [facility] LIVER FUNCTION Specimen Type: SERUM No comment entered. Ordering Provider: KISHAN CADENA Report Released Date/Time: Nov 23, 2022 12:00 PM Reporting Lab: [facility] [address] [facility] [address] Performing Lab: [address] [address] PROTEIN,TOTAL 7.6 g/dL 6.0-8.3 ALBUMIN 3.8 g/dL 3.5-5.0 ALKALINE PHOSPHATASE 59 U/L 40-150 AST 26 U/L 5-34 ALT 20 U/L BILIRUBIN, TOTAL 0.6 mg/dL 0.2-1.2 February 11, 2024 09:22 AM [facility] HEMOGLOBIN A1C PANEL Specimen Type: BLOOD Comment: [...] Nov 23, 2022 12:00 PM Reporting Lab: [facility] [address] [facility] [address] Performing Lab: [address] [address] HEMOGLOBIN A1C 5.3 4.0-5.6 February 11, 2024 09:22 AM [facility] TSH Specimen Type: SERUM No comment entered. Ordering Provider: KISHAN CADENA Report Released Date/Time: Nov 23, 2022 12:00 PM Reporting Lab: [facility] [address] [facility] [address] Performing Lab: [address] [address] TSH 1.45 u[IU]/mL 0.35-5.00 February 11, 2024 09:22 AM [facility] CBC AND DIFF (AUTO) Specimen Type: BLOOD No comment entered. Ordering Provider: KISHAN CADENA Report Released Date/Time: Nov 23, 2022 12:00 PM Reporting Lab: [address] [address] Performing Lab: [address] [address] WBC 3.19 10*3/uL L 4.50-11.00 RBC 4.83 10*6/uL 4.23-5.66 HGB 14.8 g/dL 12.8-17 HCT 43.0 39.2-50.4 MCV 89.0 fL 82-99 MCHC 34.4 g/dL 30.8-35.1 PLT 220 10*3/uL 140-360 RDW-CV 11.5 L 12.0-16.0 Mason, Abs 0.26 10*3/uL L 0.30-1.10 MCH 30.6 pg 26.2-32.6 Neut % 33.5 L 43.7-75.8 Lymph % 53.3 H 14.0-42.3 Mason % 8.2 5.1-13.7 Eos % 3.8 0.4-6.8 Baso % 0.9 0.1-2.0 Neut, Abs 1.07 10*3/uL L 2.20-7.60 Lymph, Abs 1.70 10*3/uL 1.00-3.20 Eos, Abs 0.12 10*3/uL 0.03-0.44 Baso, Abs 0.03 10*3/uL 0.01-0.13 Immature Gran % 0.3 0.0-0.7 Immature Gran, Abs 0.01 10*3/uL 0.00-0.06 February 11, 2024 09:22 AM [facility] URINALYSIS Specimen Type: URINE Comment: If Glucose = >500 and Ketones are positive, please alert the Physician. Ordering Provider: KISHAN CADENA Report Released Date/Time: Nov 23, 2022 12:00 PM Reporting Lab: [address] [address] Performing Lab: [address] [address] UA COLOR Light-Yellow Yellow UA APPEARANCE Clear Clear UA GLUCOSE NEGATIVE mg/dL Negative UA KETONES NEGATIVE mg/dL Negative UA BLOOD NEGATIVE mg/dL Negative UA PROTEIN NEGATIVE mg/dL Negative UA NITRITE NEGATIVE mg/dL Negative UA BILIRUBIN NEGATIVE mg/dL Negative UA SPECIFIC GRAVITY 1.018 1.016-1.022 UA pH 7.5 5.0-9.0 UA UROBILINOGEN <2.0 mg/dL <2.0 UA LEUKOCYTE NEGATIVE Negative February 11, 2024 09:22 AM [facility] PSA Specimen Type: SERUM No comment entered. Ordering Provider: KISHAN CADENA Report Released Date/Time: Nov 23, 2022 12:00 PM Reporting Lab: [facility] [address] [facility] [address] Performing Lab: [facility] [address] [facility] [address] PSA 0.52 ng/mL 0.00-4.00 Social History: Smoking Status (Most current) and Tobacco Use (All prior to encounter date) This section includes the most current, and the historical, smoking and tobacco- related health factors from the [place] facility where the Encounter took place. Current Smoking Status This section includes the most current smoking, or tobacco-related health factor, from the [place] facility where the Encounter took place. Date/Time Current Smoking Status Comment Arely johnson February 18, 2024 02:00 PM VA-TOBACCO NEVER USED [facility] Tobacco Use History This section includes a history of the smoking, or tobacco-related health factors, that were collected on or before the date of the Encounter. The data comes from the [place] facility where the Encounter took place. Date/Time Smoking Status/Tobacco Use Comment F acility February 28, 2011 02:20 PM LIFETIME NON-TOBACCO USER [facility] Aug 07, 2008 09:03 AM V1-PT DECLINES REF TO TOBACCO CE SS PRGM [facility] Aug 07, 2008 09:03 AM V1-PT DECLINES TOBACCO CESSATION MEDS [facility] Aug 07, 2008 09:03 AM V1-PT READY TO QUIT TOBACCO USE [facility] 2007 10:10 AM QUIT TOBACCO USE IN PAST YEAR [facility] Encounter Notes: All associated encounter notes This section contains the clinical notes associated to the Encounter. Date/Time Encounter Note(s) Provider Source February 18, 2024 03:11 PM LETTERS: LOCAL TITLE: PATIENT LETTER (T) STANDARD TITLE: LETTERS DATE OF NOTE: FEBRUARY 18, 2024@15:11 ENTRY DATE: FEBRUARY 18, 2024@15:11:48 AUTHOR: CLEVELAND ENRIQUEZ COSIGNER: URGENCY: STATUS: COMPLETED [facility] Toll Free Number Primary Care Telephone Assistance can be reached at extension [phone] [facility] scheduling can be reached at extension [phone] [facility] scheduling can be reached at ext [phone] February 18, 2024 Kenneth Morocho [facility] RE: Héctor Ba Dear Kenneth Morocho, [place] Héctor Ba has a diagnosis of PTSD which is related to his participation 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 Please accept his membership with [email or web address] [place]. Sincerely, Your Primary Care Team [facility] [address] [facility] [address] [place] [address] [place] [address] [facility] [address] [place] [address] [place] [address] [facility] [address] [facility] [place] [address] [place] [address] CLEVELAND ENRIQUEZ [facility] February 18, 2024 02:10 PM PREVENTIVE MEDICIN E NURSING NOTE: LOCAL TITLE: CLINICAL REMINDERS/NURSING STANDARD TITLE: PREVENTIVE MEDICINE NURSING NOTE DATE OF NOTE: FEBRUARY 18, 2024@14:10 ENTRY DATE: FEBRUARY 18, 2024@14:10:36 AUTHOR: CLEVELAND ENRIQUEZ COSIGNER: URGENCY: STATUS: COMPLETED Advance Directive Screen MH AD: Patient does not have a completed advance directive on file at any facility, [facility] or outside. S/he is not interested in completing one at this time. The patient received education about Advance Directives and written notification of his/her rights. Suicide Screen: C-SSRS Screening [place] Suicide Severity Rating Scale (C-SSRS) screener 1. Over the past month, have you wished you were or wished you could go to sleep and not wake up? No 2. Over the past month, have you had any actual thoughts of killing yourself? No 3. Over the past month, have you been thinking about how you might do this? Response not required due to responses to other questions. 4. Over the past month, have you had these thoughts and had some intention of acting on them? Response not required due to responses to other questions. 5. Over the past month, have you started to work out or worked out the details of how to kill yourself? Response not required due to responses to other questions. 6. If yes, at any time in the past month did you intend to carry out this plan? Response not required due to responses to other questions. 7. In your lifetime, have you ever done anything, started to do anything, or prepared to do anything to end your life (for example, collected pills, obtained a gun, gave away valuables, went to the roof but didn't jump)? No 8. If YES, was this within the past 3 months? Response not required due to responses to other questions. Toxic Exposure Screening: The /caregiver was asked if they believe the experienced any toxic exposure(s), such as Airborne Hazards and Open Burn Pit, [place] War related exposures, Agent [place], Radiation, contaminated water at [place] or other such exposures, while serving in the Armed Forces. 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 The [place]/caregiver was informed that we will continue to ask this screening question every 5 years. They can contact their provider/healthcare team if they have concerns about exposures and would like to be screened sooner. Printed information was offered and provided if desired. Homelessness/Food Insecurity Screen: In the past 2 months, have you been living in stable housing that you own, rent, or stay in as part of a household? Yes - Living in stable housing. Are you worried or concerned that in the next 2 months you may NOT have stable housing that you own, rent, or stay in as part of a household? No - Not worried about housing near future The reports the following: Within the past 12 months, you worried whether your food would run out before you got money to buy more. Never true Within the past 12 months, the food you bought just didn't last and you didn't have money to get more. Never true Depression Screening: Perform PHQ-2 A PHQ-2 screen was performed. The score was 0 which is a negative screen for depression. Over the past two weeks, how often have you been bothered by the following problems? 1. Little interest or pleasure in doing things Not at all 2. Feeling down, depressed, or hopeless Not at all Hepatitis B Serology/Immunization: The patient declines to receive the recommended dose of Hepatitis B vaccine. Immunization: HEP B, UNSPECIFIED FORMULATION Refusal Reason: PATIENT DECISION Patient refuses all immunization(s) in the HepB group Date Documented: 02/18/24 14:11 Tobacco Use Screening: The patient has never used tobacco. Influenza Immunization: The patient declines to receive the recommended dose of seasonal influenza vaccine. Immunization: INFLUENZA, UNSPECIFIED FORMULATION Refusal Reason: PATIENT DECISION Patient refuses all immunization(s) in the FLU group Date Documented: 02/18/24 14:12 Td / Tdap Immunization: The patient declines to receive the recommended dose of Td/Tdap vaccine. Immunization: TD(ADULT) UNSPECIFIED FORMULATION Refusal Reason: PATIENT DECISION Patient refuses all immunization(s) in the Td group Date Documented: 02/18/24 14:12 Alcohol Use Screen (AUDIT-C): Alcohol Screen: SCREEN FOR ALCOHOL (AUDIT-C) An alcohol screening test (AUDIT-C) was negative (score=2). 1. How often did you have a drink containing alcohol in the past year? Consider a drink to be a 12 ounce can or bottle of regular beer, 8 ounces of malt liquor, a 5 ounce glass of table wine, or a 1.5 ounce shot of liquor (like scotch, gin, or vodka). Two to four times a month 2. How many drinks containing alcohol did you have on a typical day when you were drinking in the past year? One or two drinks 3. How often did you have six or more drinks on one occasion in the past year? Never COVID-19 Immunization: Defer vaccine, reassess in 1 year Reason: decline Sexual Orientation: The patient thinks of their sexual orientation as: Straight or Heterosexual RHS Screen: RHS Screen Session Format: Face to Face Environmental Check Upon inquiry, the individual reports that the environment is safe to proceed. Informed Consent to Screen and Document The individual consents to proceed with screening. The individual consents to documentation of responses. PRIMARY SCREEN: In the past 12 months, how often did a current or former intimate partner (e.g., boyfriend, girlfriend, , , sexual partner): 1. Scream or curse at you Never 2. Insult or talk down to you Never 3. Threaten you with harm Never 4. Physically hurt you Never 5. Force or pressure you to have sexual contact against your will, or when you were unable to say no Never ?? The HITS tool (items 1-4 above) is US copyright protected by Msoes Miranda MD, and the user has full rights to use it throughout the [place] system. PRIMARY SCREEN RESULT: The Primary Screen is NEGATIVE. The individual answered never to all forms of IPV above (i.e., answered never to all 5 items) The individual accepts education and/or resources: No EDUCATION: The individual indicated readiness to learn. Education offered during this session as noted above. The individual indicated understanding by asking relevant questions and making appropriate comments. No barriers to learning were observed or identified. /anmol/ CLEVELAND ENRIQUEZ LPN PACT 10 Signed: 02/18/2024 14:14 CLEVELAND ENRIQUEZ [facility] February 18, 2024 12:22 PM PHYSICIAN NOTE: LOCAL TITLE: NOTE STANDARD TITLE: PHYSICIAN NOTE DATE OF NOTE: FEBRUARY 18, 2024@12:22 ENTRY DATE: FEBRUARY 18, 2024@12:22:21 AUTHOR: KIEL BREWSTER EXP COSIGNER: URGENCY: STATUS: COMPLETED HISTORY OF PRESENT ILLNESS: HÉCTOR AUREA BA, is a 43 yo MALE [place], who presents at the [facility] as a transfer from Dr Cadena's panel whom he last saw 11/23/22. He maintains a nonVA PCP: Dr Ed Camara in [place] (but does not do labs for him - he sees him for physicals on occassion). He is . No children. Plans to have kids though. Moved to the [facility] in 1997 from [place]. Lives in [place]. 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 He is applying for membership with [facility] [employer] [place]. It is an 8 week warrior golf clinic and they can get a new set of golfclubs for participating. 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 Active problems - Computerized Problem List is the source for the followin. Non-VA Providers 2. Posttraumatic stress disorder 3. Gastroesophageal reflux disease Active and Recently Outpatient Medications (including Supplies): Active Non-VA Medications Status ======= 1) Non-VA OMEPRAZOLE 20MG EC CAP 20MG BY MOUTH EVERY ACTIVE EVENING NEEDED ALLERGIES: ========= ASPIRIN, [facility] LAB HISTORY: CHEM 7 TREND LAB CUMULATIVE SELECTED Collection DT Spec GLUCOSE BUN CREATIN Sodium K+/Pot CL CO2 02/11/2024 09:22 SERUM 99 14 1.26 138 4.0 104 26 11/20/2022 10:28 SERUM 93 12 1.18 137 4.4 104 27 11/30/2021 08:41 SERUM 91 13 1.25 139 4.4 105 27 CBC TREND Collection DT Spec WBC RBC HGB HCT MCV MCH PLT 02/11/2024 09:22 BLOOD 3.19 L 4.83 14.8 43.0 89.0 30.6 220 11/20/2022 10:28 BLOOD 3.93 L 4.65 14.0 41.6 89.5 30.1 184 11/30/2021 08:41 BLOOD 3.71 L 4.61 13.9 41.4 89.8 30.2 245 HEMOGLOBIN A1C TREND Collection DT Spec HGBA1c 02/11/2024 09:22 BLOOD 5.3 11/20/2022 10:28 BLOOD 5.0 11/30/2021 08:41 BLOOD 5.1 LIPID PANEL TREND Collection DT Spec CHOL HDL CHO/HDL LDL-c TRIG 02/11/2024 09:22 SERUM 189 58 3.3 115 82 11/20/2022 10:28 SERUM 169 61 H 2.8 99 43 11/30/2021 08:41 SERUM 163 56 2.9 96 54 LIVER PANEL TREND Collection DT Spec AST ALT T BILI ALK GEOVANY T. PROT ALBUMIN 02/11/2024 09:22 SERUM 26 20 0.6 59 7.6 3.8 11/20/2022 10:28 SERUM 35 H 22 0.6 51 7.3 3.8 11/30/2021 08:41 SERUM 22 15 0.6 52 7.1 3.8 Collection DT Spec TSH 02/11/2024 09:22 SERUM 1.45 HISTORY: PERIOD OF SERVICE - [employer] FROM Oct TO Nov COMBAT SERVICE INDICATED: No VITAL SIGNS: Blood Pressure 123/79 (02/18/2024 14:09) Pulse 64 (02/18/2024 14:09) Respiration 16 (02/18/2024 14:09) Pulse Oximetry 98% (02/18/2024 14:09) Temperature 97.8 F [36.6 C] (02/18/2024 14:09) Pain 0 (02/18/2024 14:09) Height 70 in [177.8 cm] (02/18/2024 14:09) Weight 196.4 lb [89.09 kg] (02/18/2024 14:09) BMI BMI: 28.2 REVIEW OF SYSTEMS: CARDIOVASCULAR: No chest pain RESPIRATORY: No SOB, no wheezing GASTROINTESTINAL: No abd pain, no N/V/D GENITOURINARY: No dysuria, no hematuria MUSCULOSKELETAL: No joint pain, no joint swelling PSYCHIATRIC: No anxiety, no depression NEUROLOGIC: No H/A, no numbness, no weakness, no tingling EXAMINATION: GENERAL: WD/WN , pleasant & in NAD HEENT: Moist mucosa NECK: Supple, no carotid bruits HEART: RRR, S1-S2, no murmurs LUNGS: CTA B/L, no wheezes ABDOMEN: Soft, NT/ND, + BS x 4 Quads PERIPH PULSES: 2+ B/L EXTREMITIES: FROM x 4, no edema NEUROLOGIC: AAO x3, no focal findings PSYCHIATRIC: Good eye contact, affect normal ASSESSMENT/PLAN: 1. GERD: on omeprazole 20mg/QPM prn 2. PTSD: 70% SC, does not see MH FOLLOW UP: AWE - FBW prior ========= No barriers; Patient understands and agrees to current treatment plan. If pt has any questions, concerns, or changes in current health status he/she will call or come in to the [facility]. Medication Reconciliation: Outpatient: Has the patient been taking medications as documented in the EMLR? YES: The patient has been taking medications as documented in the EMLR. Essential Medication List for Review used to complete this medication reconciliation. INCLUDED IN THIS LIST: Alphabetical list of active outpatient prescriptions dispensed from this [place] (local) and dispensed from another [place] or [facility] facility (remote) as well as inpatient orders (local, pending and active), local clinic medications, locally documented non-VA medications, and local prescriptions that have or been discontinued in the past 90 days. - All changes in medications, including all non-VA/Herbal/OTC medications were entered into CPRS. - If there were any medications the patient should no longer take, they were discontinued. - The patient/caregiver was instructed to update this list, discard old lists, and take this list to the next appointment, whether with a VA or non-VA provider. JLV Link Data on this list may not be complete. Please check JLV. Allergies/ADRs (Tool #5) FACILITY ALLERGY/ADR -------- CLNCL/HLTH [facility] REPT EFF [id number] ASPIRIN [facility] [place] [facility] [place] [facility] Med Recon NoGlossary (Tool #1) INCLUDED IN THIS LIST: Alphabetical list of active outpatient prescriptions dispensed from this [facility] (local) and dispensed from another [place] or [facility] facility (remote) as well as inpatient orders (local pending and active), local clinic medications, locally documented non-VA medications, and local prescriptions that have or been discontinued in the past 90 days. Non-VA Meds Last Documented On: February 18, 2024 NOTE The display of VA prescriptions dispensed from another [place] or [facility] facility (remote) is limited to active outpatient prescription entries matched to National Drug File at the originating site and may not include some items such as investigational drugs, compounds, etc. NOT INCLUDED IN THIS LIST: Medications self-entered by the patient into personal health records (i.e. [employer]) are NOT included in this list. Non-VA medications documented outside this [place], remote inpatient orders (regardless of status) and remote clinic medications are NOT included in this list. The patient and provider must always discuss medications the patient is taking, regardless of where the medication was dispensed or obtained. ------ OUTPT OMEPRAZOLE 20MG EC CAP (Status = Discontinued) TAKE ONE CAPSULE BY MOUTH EVERY MORNING 30 MINUTES BEFORE BREAKFAST FOR EXCESSIVE PRODUCTION OF STOMACH ACID Rx# [id number] Last Released: 02/07/23 Qty/Days Supply: Rx Expiration Date: 11/30/23 Refills Remainin Indication: FOR EXCESSIVE PRODUCTION OF STOMACH ACID Non-VA OMEPRAZOLE 20MG EC CAP TAKE 1 CAPSULE BY MOUTH EVERY EVENING NEEDED Patient wants to buy from Non-VA pharmacy. OUTPT TAMSULOSIN HCL 0.4MG CAP (Status = Discontinued) TAKE ONE CAPSULE BY MOUTH AT BEDTIME Rx# [id number] Last Released: 11/24/22 Qty/Days Supply: Rx Expiration Date: 11/24/23 Refills Remainin Indication: FOR ENLARGED PROSTATE ------ SUPPLIES ------ /anmol/ KIEL BREWSTER MD Primary Care Physician Signed: 02/18/2024 15:16 KIEL BREWSTER [facility]
--- OUTSIDE RECORDS SUMMARY | 2024-09-23 12:57 | XMS_ITS | Continuity of Care Document ---
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 It does not include entries that were removed or entered in error. Problem Status Onset Date Problem Type Date of Resolution Comments Source Gastroesophageal reflux disease Active Condition Aug 21, 2008 Entered By: RICKEY MAC Comment: UGI, AUG 15: Unremarkable Study [place] [facility] Providers: Active Condition Ar 2023 Entered By: KIEL BREWSTER Comment: Primary Care: Dr. Ed Camara [place] Posttraumatic stress disorder Active Condition February 18, 2024 Entered By: KIEL BREWSTER Comment: 70% [facility] visit for: administrative purpose Inactive Condition [facility] headache syndromes Active Condition [facility] acne Inactive Condition [facility] visit for: screening exam pulmonary tuberculosis Inactive Condition [facility] lack of adequate sleep Inactive Condition [facility] nasal passage blockage (stuffiness) Inactive Condition [facility] joint pain, localized in the wrist Inactive Condition [facility] pseudofolliculitis barbae Inactive Condition [facility] hip sprain Inactive Condition [facility] visit for: services physical Active Condition [facility] visit for: ears, nose, and throat exam Active Condition [facility] gastritis Active Condition [facility] exposure to STD Active Condition [facility] esophageal reflux Active Condition [facility] tendonitis patellar Active Condition [facility] urethritis chlamydia trachomatis Inactive Condition [facility] chlamydial infections Inactive Condition CHLAMYDIAL INFECTIONS [facility] dermatophytosis benavides Active Condition DERMATOPHYTOSIS BENAVIDES [facility] Diagnosis: ICD-10-CM F43.10 Post-traumatic stress disorder, unspecified Active Diagnosis [place] Medications Combined list of outpatient medications from Department of Defense and Veterans Affairs facilities.Medications provided include 1) outpatient medications from the last 15 months, and 2) patient-reported medications. Medication Details Route Status Patient Instructions Prescription Expires Prescription Number Last Dispense Date Ordering Provider Order Date Order Qty Source OMEPRAZOLE 20MG CAP,EC TAKE 1 CAPSULE BY MOUTH EVERY EVENING NEEDED ORAL ACTIVE MURPHY BREWSTER SA 2023 [facility] IELD Allergies, Adverse Reactions, Alerts Combined list of allergies from Department of Defense and Veterans Affairs facilities. It does not include entries that were removed or entered in error. Substance Category Reaction Severity Reaction type Status Date Reported Comments Source ACETYL SALICYLIC ACID Drug allergy (disorder) Nausea and Vomiting active 7 [facility] ASPIRIN Propensity to adverse reactions to drug (finding) [facility] and vomiting [facility] ASPR[facility] EC LOW DOSE (ASPIRIN) Drug allergy (disorder) Urticaria active 7 [facility] [place] OTHER {Cla } Drug allergy (disorder) Vomiting active 7 [facility] [place] SHELLFISH Propensity to adverse reactions to food (finding) Urticaria active 7 [facility] SHELLFISH {Cla } Food allergy (disorder) Urticaria active 7 [facility] [place] Immunizations Combined list of available immunizations from the Department of Defense and Veterans Affairs facilities. Immunization Series Date Given Administered By Site Reaction Lot Number CVX Code Drug Conductor Symphonic Orchestra Status Comments Source INFLUENZA, UNSPECIFIED FORMULATION 2021 88 complet [facility] [place] [facility] Influenza, injectable, MDCK, preservative free, quadrivalent 2019 BOGDASARIAN, () Not Given Influenza , injectabl e, MDCK, preservat avi free, quadrival ent [facility] Influenza, injectable, MDCK, preservative free, quadrivalent 2016 BOGDASARIAN, () Not Given Influenza , injectabl e, MDCK, preservat avi free, quadrival ent [facility] Influenza, seasonal, injectable, preservative free 1 2016 [id number] Seqirus (SEQ) comple t ed Influenza , seasonal, injectabl e, preservat avi free DoD Influenza, seasonal, injectable 1 2015 [id number] [employer] (CSL) complet ed Influenza , seasonal, injectabl e [facility] Influenza, seasonal, injectable, preservative free 1 2014 [id number] Other (OTH) complet ed Influenza , seasonal, injectabl e, preservat avi free [facility] measles, mumps and rubella virus vaccine 0 2013 [id number] Merck (MSD) complet ed measles, mumps and rubella virus vaccine DoD Influenza, seasonal, injectable, preservative free 1 2013 [id number] Open Learning (SKB) complet ed Influenza , seasonal, injectabl e, preservat avi free DoD varicella virus vaccine 0 2013 21 () Not Given varicella virus vaccine DoD Influenza, seasonal, injectable, preservative free 1 2012 [id number] [employer] Inc[employer] (MED) complet ed Influenza , seasonal, injectabl e, preservat avi free DoD influenza virus vaccine, live, attenuated, for intranasal use 1 2011 [id number] [employer] (MED) complet ed influenza virus vaccine, live, attenuate d, for intranasa l use DoD tetanus toxoid, reduced diphtheria toxoid, and acellular pertu is vaccine, adsorbed 1 2009 [id number] 115 Sanofi Pasteur (PMC) complet ed tetanus toxoid, reduced diphtheri a toxoid, and acellular pertussis vaccine, adsorbed DoD FLU,3 YRS (HISTORICAL) 2009 88 complet ed in [facility] anthrax vaccine 7 2009 [id number] Unknown (UNK) comple t ed anthrax vaccine DoD anthrax vaccine 6 2009 [id number] 24 [employer] [place] ([facility]) complet ed anthrax vaccine DoD typhoid Vi capsular polysaccharid e vaccine 1 2009 [id number] Other (OTH) complet ed typhoid Vi capsular polysacch aride vaccine DoD Novel influenza-H1N 1-09, injectable 1 2009 UNK 127 Unknown (UNK) Not Given Novel influenza -M2J7-79, injectabl e DoD influenza virus vaccine, split virus (incl. purified surface antigen)-reti red CODE 2 2008 UNK 15 Unknown (UNK) Not Given influenza virus vaccine, split virus (incl. purified surface antigen)- retired CODE DoD hepatitis A vaccine, adult dosage 3 2008 [id number] 52 Unknown (UNK) complet ed hepatitis A vaccine, adult dosage DoD DTAP, UNSPECIFIED FORMULATION [address] [facility] typhoid Vi capsular polysaccharid e vaccine 1 2005 UNK 101 Unknown (UNK) comple t ed typhoid Vi capsular polysacch aride vaccine DoD hepatitis A vaccine, adult dosage 2 2005 [id number] 52 Unknown (UNK) complet ed hepatitis A vaccine, adult dosage DoD anthrax vaccine 5 2003 UNK 24 [employer] [place] ([facility]) complet ed anthrax vaccine DoD hepatitis B vaccine, adult dosage 2 2003 [id number] 43 wedgiesine (SKB) complet ed hepatitis B vaccine, adult dosage DoD influenza virus vaccine, split virus (incl. purified surface antigen)-reti red CODE 1 2003 [id number] Powder[employer] (PWJ) complet ed influenza virus vaccine, split virus (incl. purified surface antigen)- retired CODE DoD anthrax vaccine 3 2002 [id number] [facility] [place] ([facility]) complet ed anthrax vaccine DoD anthrax vaccine 3 2002 UNK 24 Located Within [facility] [employer] [place] ([facility]) complet ed anthrax vaccine DoD anthrax vaccine 2 2002 UNK 24 Located Within [facility]) complet ed anthrax vaccine DoD tetanus and diphtheria toxoids, adsorbed, preservative free, for adult use (2 Lf of tetanus toxoid and 2 Lf of diphtheria toxoid) 0 2002 [id number] Sanofi Pasteur ([facility]) complet ed tetanus and diphtheri a toxoids, adsorbed, preservat avi free, for adult use (2 Lf of tetanus toxoid and 2 Lf of diphtheri a toxoid) DoD anthrax vaccine 1 2002 UNK 24 Located Within [facility] ([facility]) complet ed anthrax vaccine DoD hepatitis B vaccine, adult dosage 1 2002 [id number] [employer] (SKB) complet ed hepatitis B vaccine, adult dosage DoD vaccinia (smallpox) vaccine 0 2002 [id number] 75 Evelyne (ALLI) complet ed vaccinia (smallpox ) vaccine DoD typhoid Vi capsular polysaccharid e vaccine 0 2002 [id number] Sanofi Pasteur (PMC) complet ed typhoid Vi capsular polysacch aride vaccine DoD hepatitis A and hepatitis B vaccine 1 02/11/ 2003 [id number] Unknown (UNK) complet ed hepatitis A and hepatitis B vaccine DoD measles, mumps and rubella virus vaccine 0 2000 UNK 03 Unknown (UNK) comple t ed measles, mumps and rubella virus vaccine DoD poliovirus vaccine, inactivated 0 2000 UNK 10 Unknown (UNK) comple t ed polioviru s vaccine, inactivat ed DoD meningococcal polysaccharid e vaccine (MPSV4) 0 2000 UNK 32 Unknown (UNK) comple t ed meningoco ccal polysacch aride vaccine (MPSV4) DoD Results Combined list of recent chemistry, hematology and other laboratory results from Department of Defense and Veterans Affairs, ranging from 15 months to all on record, depending upon the facility. Order Name Results Value Reference Range Date Interpretation Specimen Comments Source BASIC METABOLI C PANEL (fasting ) UREA NITROGEN [MASS/VOLU ME] IN SERUM OR PLASMA 14 mg/dL 7 - 25 02/10 Specimen Type: SERUM No comment entered. Ordering Provider: NATE CADENA IE Report Released Date/Time: Nov 23, 2022 12:00 PM Reporting Lab: [facility] Kinsa IncGUADALUPE COUNTY HOSPITALInstapagar [address] [address] Performing Lab: [facility] [employer] [address] [employer] BASIC METABOLI C PANEL (fasting ) GLUCOSE [MASS/VOLU ME] IN SERUM OR PLASMA 99 mg/dL 65 - 100 02/10 Specimen Type: SERUM No comment entered. Ordering Provider: NATE CADENA IE Report Released Date/Time: Nov 23, 2022 12:00 PM Reporting Lab: [facility] [employer] [address] Performing Lab: [facility] [employer] [address] [employer] BASIC METABOLI C PANEL (fasting ) SODIUM [MOLES/VOL UME] IN SERUM OR PLASMA 138 mmol/L 135 - 145 02/10 Specimen Type: SERUM No comment entered. Ordering Provider: NATE CADENA IE Report Released Date/Time: Nov 23, 2022 12:00 PM Reporting Lab: [facility] [employer] [place] [facility] [address] [address] Performing Lab: [facility] [address] [address] [place] BASIC METABOLI C PANEL (fasting ) POTASSIUM [MOLES/VOL UME] IN SERUM OR PLASMA 4.0 mmol/L 3.5 - 5.0 02/10 Specimen Type: SERUM No comment entered. Ordering Provider: NATE CADENA IE Report Released Date/Time: Nov 23, 2022 12:00 PM Reporting Lab: [facility] [address] [address] Performing Lab: [facility] [address] [address] [place] BASIC METABOLI C PANEL (fasting ) CHLORIDE [MOLES/VOL UME] IN SERUM OR PLASMA 104 mmol/L 100 - 110 02/10 Specimen Type: SERUM No comment entered. Ordering Provider: NATE CADENA IE Report Released Date/Time: Nov 23, 2022 12:00 PM Reporting Lab: [facility] [address] [address] Performing Lab: [facility]ENTERUSE[address] [address] [place] BASIC METABOLI C PANEL (fasting ) CARBON DIOXIDE, TOTAL [MOLES/VOL UME] IN SERUM OR PLASMA 26 meq/L 20 - 30 02/10 Specimen Type: SERUM No comment entered. Ordering Provider: NATE CADENA IE Report Released Date/Time: Nov 23, 2022 12:00 PM Reporting Lab: [facility] [address] [address] Performing Lab: [facility]ENTERUSE[address] [address] [place] BASIC METABOLI C PANEL (fasting ) CREATININE [MASS/VOLU ME] IN SERUM OR PLASMA 1.26 mg/dL 0.50 - 1.40 02/10 Specimen Type: SERUM No comment entered. Ordering Provider: NATE CADENA IE Report Released Date/Time: Nov 23, 2022 12:00 PM Reporting Lab: [facility] [address] [address] Performing Lab: [address] [address] [place] BASIC METABOLI C PANEL (fasting ) GLOMERULAR FILTRATION RATE/1.73 SQ M.PREDICTE D [VOLUME RATE/AREA] IN SERUM, PLASMA OR BLOOD BY CREATININE -BASED FORMULA (CKD-EPI 2020) 73 mL/min 60 02/10 Specimen Type: SERUM No comment entered. Ordering Provider: NATE CADENA IE Report Released Date/Time: Nov 23, 2022 12:00 PM Reporting Lab: [address] [address] Performing Lab: [address] [address] [place] LIPID PANEL FASTING CHOLESTERO L [MASS/VOLU ME] IN SERUM OR PLASMA 189 mg/dL 02/10 Specimen Type: SERUM No comment entered. Ordering Provider: NATE CADENA IE Report Released Date/Time: Nov 23, 2022 12:00 PM Reporting Lab: [address] [address] Performing Lab: [address] [address] [place] LIPID PANEL FASTING TRIGLYCERI DE [MASS/VOLU ME] IN SERUM OR PLASMA 82 mg/dL 0 - 150 02/10 Specimen Type: SERUM No comment entered. Ordering Provider: NATE CADENA IE Report Released Date/Time: Nov 23, 2022 12:00 PM Reporting Lab: [address] [address] Performing Lab: [address] [address] [place] LIPID PANEL FASTING CHOLESTERO L IN LDL [MASS/VOLU ME] IN SERUM OR PLASMA BY CALCULATIO N 115 mg/dL 0 - 129 02/10 Specimen Type: SERUM No comment entered. Ordering Provider: NATE CADENA IE Report Released Date/Time: Nov 23, 2022 12:00 PM Reporting Lab: [facility]USE[facility] [address] [address] Performing Lab: [facility] [address] [address] [place] LIPID PANEL FASTING CHOLESTERO L.TOTAL/CH OLESTEROL IN HDL [MASS RATIO] IN SERUM OR PLASMA 3.3 02/10 Specimen Type: SERUM No comment entered. Ordering Provider: NATE CADENA IE Report Released Date/Time: Nov 23, 2022 12:00 PM Reporting Lab: [facility] [address] [address] Performing Lab: [facility] [address] [address] [place] LIPID PANEL FASTING CHOLESTERO L IN HDL [MASS/VOLU ME] IN SERUM OR PLASMA 58 mg/dL 40 - 60 02/10 Specimen Type: SERUM No comment entered. Ordering Provider: NATE CADENA IE Report Released Date/Time: Nov 23, 2022 12:00 PM Reporting Lab: [facility] [address] [address] Performing Lab: [facility] CENTERUSE[address] [address] [place] LIVER FUNCTION PROTEIN [MASS/VOLU ME] IN SERUM OR PLASMA 7.6 g/dL 6.0 - 8.3 02/10 Specimen Type: SERUM No comment entered. Ordering Provider: NATE CADENA IE Report Released Date/Time: Nov 23, 2022 12:00 PM Reporting Lab: [facility] [address] [address] Performing Lab: [facility]ENTERUSE[address] [address] [place] LIVER FUNCTION ALBUMIN [MASS/VOLU ME] IN SERUM OR PLASMA 3.8 g/dL 3.5 - 5.0 02/10 Specimen Type: SERUM No comment entered. Ordering Provider: NATE CADENA IE Report Released Date/Time: Nov 23, 2022 12:00 PM Reporting Lab: [facility]WRLAUREL [facility]ENTERTRN [address] [address] Performing Lab: [facility] [address] [address] [facility] LIVER FUNCTION ALKALINE PHOSPHATAS E [ENZYMATIC ACTIVITY/V OLUME] IN SERUM OR PLASMA 59 U/L 40 - 150 02/10 Specimen Type: SERUM No comment entered. Ordering Provider: NATE CADENA IE Report Released Date/Time: Nov 23, 2022 12:00 PM Reporting Lab: [facility] [address] [address] Performing Lab: [facility] [address] [address] [facility] LIVER FUNCTION ASPARTATE AMINOTRANS FERASE [ENZYMATIC ACTIVITY/V OLUME] IN SERUM OR PLASMA 26 U/L 5 - 34 02/10 Specimen Type: SERUM No comment entered. Ordering Provider: NATE CADENA IE Report Released Date/Time: Nov 23, 2022 12:00 PM Reporting Lab: [facility] [address] [address] Performing Lab: [facility] [address] [address] [facility] LIVER FUNCTION ALANINE AMINOTRANS FERASE [ENZYMATIC ACTIVITY/V OLUME] IN SERUM OR PLASMA 20 U/L 02/10 Specimen Type: SERUM No comment entered. Ordering Provider: NATE CADENA IE Report Released Date/Time: Nov 23, 2022 12:00 PM Reporting Lab: [facility] [address] [address] Performing Lab: [facility] [address] [address] [facility] LIVER FUNCTION BILIRUBIN. TOTAL [MASS/VOLU ME] IN SERUM OR PLASMA 0.6 mg/dL 0.2 - 1.2 02/10 Specimen Type: SERUM No comment entered. Ordering Provider: NATE CADENA IE Report Released Date/Time: Nov 23, 2022 12:00 PM Reporting Lab: [facility] [address] [address] Performing Lab: [facility] [address] [address] [place] HEMOGLOB IN A1C PANEL HEMOGLOBIN A1C/HEMOGL OBIN.TOTAL IN BLOOD BY HPLC 5.3 4.0 - 5.6 02/10 Specimen Type: BLOOD Comment: Values obtained from A1C measurement s can vary. For atypical A1C assays, a reported value of 7.0 could actually be between 6.72 and 7.28 if measured by a reference method. A reported value of 9.0 could actually be between 8.73 and 9.27. Ref: http://www. ngsp.org/[place] Pdata.asp Ordering Provider: NATE CADENA Report Released Date/Time: Nov 23, 2022 12:00 PM Reporting Lab: [address] [address] Performing Lab: [address] [address] [place] TSH THYROTROPI N [UNITS/VOL UME] IN SERUM OR PLASMA 1.45 u[IU]/mL 0.35 - 5.00 02/10 Specimen Type: SERUM No comment entered. Ordering Provider: NATE CADENA IE Report Released Date/Time: Nov 23, 2022 12:00 PM Reporting Lab: [address] [address] Performing Lab: [address] [address] [place] CBC AND DIFF (AUTO) LEUKOCYTES [#/VOLUME] IN BLOOD BY AUTOMATED COUNT 3.19 10*3/uL 4.50 - 11.00 02/10 L Specimen Type: BLOOD No comment entered. Ordering Provider: NATE CADENA IE Report Released Date/Time: Nov 23, 2022 12:00 PM Reporting Lab: [address] [address] Performing Lab: [address] [address] [place] CBC AND DIFF (AUTO) ERYTHROCYT ES [#/VOLUME] IN BLOOD BY AUTOMATED COUNT 4.83 10*6/uL 4.23 - 5.66 02/10 Specimen Type: BLOOD No comment entered. Ordering Provider: NATE CADENA IE Report Released Date/Time: Nov 23, 2022 12:00 PM Reporting Lab: [facility] [place] [facility] [address] [address] Performing Lab: [facility]N [facility] [address] [address] [place] CBC AND DIFF (AUTO) HEMOGLOBIN [MASS/VOLU ME] IN BLOOD 14.8 g/dL 12.8 - 17 02/10 Specimen Type: BLOOD No comment entered. Ordering Provider: NATE CADENA IE Report Released Date/Time: Nov 23, 2022 12:00 PM Reporting Lab: [facility]TRN [facility]ENTERUSETS [address] [address] Performing Lab: [facility] TRN [place] [address] [address] [place] CBC AND DIFF (AUTO) HEMATOCRIT [VOLUME FRACTION] OF BLOOD BY AUTOMATED COUNT 43.0 39.2 - 50.4 02/10 Specimen Type: BLOOD No comment entered. Ordering Provider: NATE CADENA IE Report Released Date/Time: Nov 23, 2022 12:00 PM Reporting Lab: [facility]ENTERTRN [facility]ENTERUSETS [address] [address] Performing Lab: [facility]ENTERTRN [facility] CENTERUSETS [address] [address] [place] CBC AND DIFF (AUTO) MCV [ENTITIC VOLUME] BY AUTOMATED COUNT 89.0 fL 82 - 99 02/10 Specimen Type: BLOOD No comment entered. Ordering Provider: NATE CADENA IE Report Released Date/Time: Nov 23, 2022 12:00 PM Reporting Lab: [facility]ENTERTRN [address] [address] Performing Lab: [facility]TR[facility] [address] [address] [place] CBC AND DIFF (AUTO) MCHC [MASS/VOLU ME] BY AUTOMATED COUNT 34.4 g/dL 30.8 - 35.1 02/10 Specimen Type: BLOOD No comment entered. Ordering Provider: NATE CADENA IE Report Released Date/Time: Nov 23, 2022 12:00 PM Reporting Lab: [facility] [address] [address] Performing Lab: [facility] [address] [address] [place] CBC AND DIFF (AUTO) PLATELETS [#/VOLUME] IN BLOOD BY AUTOMATED COUNT 220 10*3/uL 140 - 360 02/10 Specimen Type: BLOOD No comment entered. Ordering Provider: NATE CADENA IE Report Released Date/Time: Nov 23, 2022 12:00 PM Reporting Lab: [facility] TR[facility] [address] [address] Performing Lab: [facility] TRN [address] [address] [place] CBC AND DIFF (AUTO) ERYTHROCYT E DISTRIBUTI ON WIDTH [RATIO] BY AUTOMATED COUNT 11.5 12.0 - 16.0 02/10 L Specimen Type: BLOOD No comment entered. Ordering Provider: NATE CADENA IE Report Released Date/Time: Nov 23, 2022 12:00 PM Reporting Lab: [facility] [address] [address] Performing Lab: [facility] [address] [address] [place] CBC AND DIFF (AUTO) MONOCYTES [#/VOLUME] IN BLOOD BY AUTOMATED COUNT 0.26 10*3/uL 0.30 - 1.10 02/10 L Specimen Type: BLOOD No comment entered. Ordering Provider: NATE CADENA IE Report Released Date/Time: Nov 23, 2022 12:00 PM Reporting Lab: [facility] [address] [address] Performing Lab: [facility] [place] [facility] [address] [address] [place] CBC AND DIFF (AUTO) MCH [ENTITIC MASS] BY AUTOMATED COUNT 30.6 pg 26.2 - 32.6 02/10 Specimen Type: BLOOD No comment entered. Ordering Provider: NATE CADENA IE Report Released Date/Time: Nov 23, 2022 12:00 PM Reporting Lab: [facility] [place] [facility] [address] [address] Performing Lab: [facility] [place] [facility] [address] [address] [place] CBC AND DIFF (AUTO) NEUTROPHIL S/100 LEUKOCYTES IN BLOOD BY AUTOMATED COUNT 33.5 43.7 - 75.8 02/10 L Specimen Type: BLOOD No comment entered. Ordering Provider: NATE CADENA IE Report Released Date/Time: Nov 23, 2022 12:00 PM Reporting Lab: [facility] [place] [address] [address] Performing Lab: [facility] [place] [address] [address] [place] CBC AND DIFF (AUTO) LYMPHOCYTE S/100 LEUKOCYTES IN BLOOD BY AUTOMATED COUNT 53.3 14.0 - 42.3 02/10 H Specimen Type: BLOOD No comment entered. Ordering Provider: NATE CADENA IE Report Released Date/Time: Nov 23, 2022 12:00 PM Reporting Lab: [facility] [place] [address] [address] Performing Lab: [facility] [place] [address] [address] [place] CBC AND DIFF (AUTO) MONOCYTES/ 100 LEUKOCYTES IN BLOOD BY AUTOMATED COUNT 8.2 5.1 - 13.7 02/10 Specimen Type: BLOOD No comment entered. Ordering Provider: NATE CADENA IE Report Released Date/Time: Nov 23, 2022 12:00 PM Reporting Lab: [facility] [place] [address] [address] Performing Lab: [facility] [facility] [address] [address] [place] CBC AND DIFF (AUTO) EOSINOPHIL S/100 LEUKOCYTES IN BLOOD BY AUTOMATED COUNT 3.8 0.4 - 6.8 02/10 Specimen Type: BLOOD No comment entered. Ordering Provider: NATE CADENA IE Report Released Date/Time: Nov 23, 2022 12:00 PM Reporting Lab: [facility] [address] [address] Performing Lab: [facility] [address] [place] CBC AND DIFF (AUTO) BASOPHILS/ 100 LEUKOCYTES IN BLOOD BY AUTOMATED COUNT 0.9 0.1 - 2.0 02/10 Specimen Type: BLOOD No comment entered. Ordering Provider: NATE CADENA IE Report Released Date/Time: Nov 23, 2022 12:00 PM Reporting Lab: [facility] [address] [address] Performing Lab: [facility] [address] [address] [place] CBC AND DIFF (AUTO) NEUTROPHIL S [#/VOLUME] IN BLOOD BY AUTOMATED COUNT 1.07 10*3/uL 2.20 - 7.60 02/10 L Specimen Type: BLOOD No comment entered. Ordering Provider: NATE CADENA IE Report Released Date/Time: Nov 23, 2022 12:00 PM Reporting Lab: [facility] [address] Performing Lab: [facility] [address] [address] [place] CBC AND DIFF (AUTO) LYMPHOCYTE S [#/VOLUME] IN BLOOD BY AUTOMATED COUNT 1.70 10*3/uL 1.00 - 3.20 02/10 Specimen Type: BLOOD No comment entered. Ordering Provider: NATE CADENA IE Report Released Date/Time: Nov 23, 2022 12:00 PM Reporting Lab: [facility] [address] [address] Performing Lab: [facility] [address] [address] [place] CBC AND DIFF (AUTO) EOSINOPHIL S [#/VOLUME] IN BLOOD BY AUTOMATED COUNT 0.12 10*3/uL 0.03 - 0.44 02/10 Specimen Type: BLOOD No comment entered. Ordering Provider: NATE CADENA IE Report Released Date/Time: Nov 23, 2022 12:00 PM Reporting Lab: [facility] [address] [address] Performing Lab: [facility] [address] [address] [place] CBC AND DIFF (AUTO) BASOPHILS [#/VOLUME] IN BLOOD BY AUTOMATED COUNT 0.03 10*3/uL 0.01 - 0.13 02/10 Specimen Type: BLOOD No comment entered. Ordering Provider: NATE CADENA IE Report Released Date/Time: Nov 23, 2022 12:00 PM Reporting Lab: [facility] [address] [address] Performing Lab: [facility] [address] [address] [place] CBC AND DIFF (AUTO) IMMATURE GRANULOCYT ES/100 LEUKOCYTES IN BLOOD BY AUTOMATED COUNT 0.3 0.0 - 0.7 02/10 Specimen Type: BLOOD No comment entered. Ordering Provider: NATE CADENA IE Report Released Date/Time: Nov 23, 2022 12:00 PM Reporting Lab: [facility] [address] [address] Performing Lab: [facility] [address] [address] [place] CBC AND DIFF (AUTO) IMMATURE GRANULOCYT ES [#/VOLUME] IN BLOOD 0.01 10*3/uL 0.00 - 0.06 02/10 Specimen Type: BLOOD No comment entered. Ordering Provider: NATE ACDENA IE Report Released Date/Time: Nov 23, 2022 12:00 PM Reporting Lab: [facility]TRN [facility] [address] Performing Lab: [facility] [address] [place] PSA PROSTATE SPECIFIC AG [MASS/VOLU ME] IN SERUM OR PLASMA 0.52 ng/mL 0.00 - 4.00 02/10 Specimen Type: SERUM No comment entered. Ordering Provider: NATE CADENA IE Report Released Date/Time: Nov 23, 2022 12:00 PM Reporting Lab: [facility] [address] Performing Lab: [facility] [address] [address] [place] URINALYS IS COLOR OF URINE Light-Ye llow 02/10 Specimen Type: URINE Comment: If Glucose = >500 and Ketones are positive, please alert the Physician. Ordering Provider: NATE CADENA IE Report Released Date/Time: Nov 23, 2022 12:00 PM Reporting Lab: [facility] [address] Performing Lab: [facility] [address] [address] [place] URINALYS IS APPEARANCE OF URINE Clear 02/10 Specimen Type: URINE Comment: If Glucose = >500 and Ketones are positive, please alert the Physician. Ordering Provider: NAET CADENA IE Report Released Date/Time: Nov 23, 2022 12:00 PM Reporting Lab: [facility] [address] [address] Performing Lab: [facility] [address] [place] URINALYS IS GLUCOSE [MASS/VOLU ME] IN URINE NEGATIVE mg/dL 02/10 Specimen Type: URINE Comment: If Glucose = >500 and Ketones are positive, please alert the Physician. Ordering Provider: NATE CADENA IE Report Released Date/Time: Nov 23, 2022 12:00 PM Reporting Lab: [facility] [address] [address] Performing Lab: [facility] [address] [address] [place] URINALYS IS KETONES [MASS/VOLU ME] IN URINE BY TEST STRIP NEGATIVE mg/dL 02/10 Specimen Type: URINE Comment: If Glucose = >500 and Ketones are positive, please alert the Physician. Ordering Provider: NATE CADENA IE Report Released Date/Time: Nov 23, 2022 12:00 PM Reporting Lab: [facility] [address] [address] Performing Lab: [address] [address] [place] URINALYS IS ERYTHROCYT ES [PRESENCE] IN URINE SEDIMENT BY LIGHT MICROSCOPY NEGATIVE mg/dL 02/10 Specimen Type: URINE Comment: If Glucose = >500 and Ketones are positive, please alert the Physician. Ordering Provider: NATE CADENA IE Report Released Date/Time: Nov 23, 2022 12:00 PM Reporting Lab: [facility] [address] [address] Performing Lab: [address] [address] [place] URINALYS IS PROTEIN [MASS/VOLU ME] IN URINE BY TEST STRIP NEGATIVE mg/dL 02/10 Specimen Type: URINE Comment: If Glucose = >500 and Ketones are positive, please alert the Physician. Ordering Provider: NATE CADENA IE Report Released Date/Time: Nov 23, 2022 12:00 PM Reporting Lab: [facility] [address] [address] Performing Lab: [address] [address] [place] URINALYS IS NITRITE [PRESENCE] IN URINE NEGATIVE mg/dL 02/10 Specimen Type: URINE Comment: If Glucose = >500 and Ketones are positive, please alert the Physician. Ordering Provider: NATE CADENA IE Report Released Date/Time: Nov 23, 2022 12:00 PM Reporting Lab: [address] [address] Performing Lab: [address] [address] [place] URINALYS IS BILIRUBIN. TOTAL [PRESENCE] IN URINE NEGATIVE mg/dL 02/10 Specimen Type: URINE Comment: If Glucose = >500 and Ketones are positive, please alert the Physician. Ordering Provider: NATE CADENA IE Report Released Date/Time: Nov 23, 2022 12:00 PM Reporting Lab: [address] [address] Performing Lab: [address] [address] [place] URINALYS IS SPECIFIC GRAVITY OF URINE BY REFRACTOME TRY 1.018 1.016 - 1.022 02/10 Specimen Type: URINE Comment: If Glucose = >500 and Ketones are positive, please alert the Physician. Ordering Provider: NATE ACDENA IE Report Released Date/Time: Nov 23, 2022 12:00 PM Reporting Lab: [address] [address] Performing Lab: [address] [address] [place] URINALYS IS PH OF URINE BY TEST STRIP 7.5 5.0 - 9.0 02/10 Specimen Type: URINE Comment: If Glucose = >500 and Ketones are positive, please alert the Physician. Ordering Provider: NATE CADENA IE Report Released Date/Time: Nov 23, 2022 12:00 PM Reporting Lab: [address] [address] Performing Lab: [address] [address] [place] URINALYS IS UROBILINOG EN [MASS/VOLU ME] IN URINE BY TEST STRIP <2.0mg/d L <2.0 - 2.0 02/10 Specimen Type: URINE Comment: If Glucose = >500 and Ketones are positive, please alert the Physician. Ordering Provider: NATE CADENA IE Report Released Date/Time: Nov 23, 2022 12:00 PM Reporting Lab: [facility] [address] [address] Performing Lab: [address] [address] [place] URINALYS IS LEUKOCYTE ESTERASE [PRESENCE] IN URINE BY TEST STRIP NEGATIVE 02/10 Specimen Type: URINE Comment: If Glucose = >500 and Ketones are positive, please alert the Physician. Ordering Provider: NATE CADENA IE Report Released Date/Time: Nov 23, 2022 12:00 PM Reporting Lab: [address] [address] Performing Lab: [address] [address] [place] BASIC METABOLI C PANEL (fasting ) UREA NITROGEN [MASS/VOLU ME] IN SERUM OR PLASMA 12 mg/dL 7 - 25 11/20 Specimen Type: SERUM No comment entered. Ordering Provider: NATE CADENA IE Report Released Date/Time: Nov 21, 2021 11:39 AM Reporting Lab: [address] [address] Performing Lab: [address] [address] [place] BASIC METABOLI C PANEL (fasting ) GLUCOSE [MASS/VOLU ME] IN SERUM OR PLASMA 93 mg/dL 65 - 100 11/20 Specimen Type: SERUM No comment entered. Ordering Provider: NATE CADENA IE Report Released Date/Time: Nov 21, 2021 11:39 AM Reporting Lab: [address] [address] Performing Lab: [address] [address] [place] BASIC METABOLI C PANEL (fasting ) SODIUM [MOLES/VOL UME] IN SERUM OR PLASMA 137 mmol/L 135 - 145 11/20 Specimen Type: SERUM No comment entered. Ordering Provider: NATE CADENA IE Report Released Date/Time: Nov 21, 2021 11:39 AM Reporting Lab: [facility] [address] [address] Performing Lab: [facility] [address] [address] [place] BASIC METABOLI C PANEL (fasting ) POTASSIUM [MOLES/VOL UME] IN SERUM OR PLASMA 4.4 mmol/L 3.5 - 5.0 11/20 Specimen Type: SERUM No comment entered. Ordering Provider: NATE CADENA IE Report Released Date/Time: Nov 21, 2021 11:39 AM Reporting Lab: [facility] [address] [address] Performing Lab: [facility] TRN [facility] [address] [place] BASIC METABOLI C PANEL (fasting ) CHLORIDE [MOLES/VOL UME] IN SERUM OR PLASMA 104 mmol/L 100 - 110 11/20 Specimen Type: SERUM No comment entered. Ordering Provider: NATE CADENA IE Report Released Date/Time: Nov 21, 2021 11:39 AM Reporting Lab: [facility] [address] [address] Performing Lab: [facility]N [facility] [address] [address] [place] BASIC METABOLI C PANEL (fasting ) CARBON DIOXIDE, TOTAL [MOLES/VOL UME] IN SERUM OR PLASMA 27 meq/L 20 - 30 11/20 Specimen Type: SERUM No comment entered. Ordering Provider: NATE CADENA IE Report Released Date/Time: Nov 21, 2021 11:39 AM Reporting Lab: [facility] [address] [address] Performing Lab: [facility] [address] [place] BASIC METABOLI C PANEL (fasting ) CREATININE [MASS/VOLU ME] IN SERUM OR PLASMA 1.18 mg/dL 0.50 - 1.40 11/20 Specimen Type: SERUM No comment entered. Ordering Provider: NATE CADENA IE Report Released Date/Time: Nov 21, 2021 11:39 AM Reporting Lab: [facility] [address] [address] Performing Lab: [address] [address] [place] BASIC METABOLI C PANEL (fasting ) GLOMERULAR FILTRATION RATE/1.73 SQ M.PREDICTE D [VOLUME RATE/AREA] IN SERUM, PLASMA OR BLOOD BY CREATININE -BASED FORMULA (CKD-EPI) 80 mL/min 60 11/20 Specimen Type: SERUM No comment entered. Ordering Provider: NATE CADENA IE Report Released Date/Time: Nov 21, 2021 11:39 AM Reporting Lab: [address] [address] Performing Lab: [address] [address] [place] LIPID PANEL FASTING CHOLESTERO L [MASS/VOLU ME] IN SERUM OR PLASMA 169 mg/dL 7 - 199 11/20 Specimen Type: SERUM No comment entered. Ordering Provider: NATE CADENA IE Report Released Date/Time: Nov 21, 2021 11:39 AM Reporting Lab: [address] [address] Performing Lab: [address] [address] [place] LIPID PANEL FASTING TRIGLYCERI DE [MASS/VOLU ME] IN SERUM OR PLASMA 43 mg/dL 0 - 150 11/20 Specimen Type: SERUM No comment entered. Ordering Provider: NATE CADENA IE Report Released Date/Time: Nov 21, 2021 11:39 AM Reporting Lab: [facility] [address] [address] Performing Lab: [address] [address] [place] LIPID PANEL FASTING CHOLESTERO L IN LDL [MASS/VOLU ME] IN SERUM OR PLASMA BY CHRISTOPHER Marmolejo 99 mg/dL 0 - 129 11/20 Specimen Type: SERUM No comment entered. Ordering Provider: NATE CADENA IE Report Released Date/Time: Nov 21, 2021 11:39 AM Reporting Lab: [facility] [address] [address] Performing Lab: [facility] [address] [address] [facility] LIPID PANEL FASTING CHOLESTERO L.TOTAL/CH OLESTEROL IN HDL [MASS RATIO] IN SERUM OR PLASMA 2.8 11/20 Specimen Type: SERUM No comment entered. Ordering Provider: NATE CADENA Report Released Date/Time: Nov 21, 2021 11:39 AM Reporting Lab: [facility] [address] [address] Performing Lab: [facility] [address] [address] [facility] LIPID PANEL FASTING CHOLESTERO L IN HDL [MASS/VOLU ME] IN SERUM OR PLASMA 61 mg/dL 40 - 60 11/20 H Specimen Type: SERUM No comment entered. Ordering Provider: NATE CADENA Report Released Date/Time: Nov 21, 2021 11:39 AM Reporting Lab: [facility] [address] [address] Performing Lab: [facility] [address] [address] [facility] Vital Signs Combined list of inpatient and outpatient Vital Signs from Department of Defense and Veterans Affairs, ranging from 12 months to all on record, depending upon the facility. Vital Sign Value Date Comments Source SYSTOLIC BLOOD PRESSURE 123 02/18/20 24 14:09:45 [facility] DIASTOLIC BLOOD PRESSURE 79 024 14:09:45 [facility] PULSE OXIMETRY 98 02/18/2024 14:09:45 [facility] WEIGHT 196.4 02/18/2024 14:09:45 [facility] [place] [facility] BMI 28kg/m2 02/18/2024 14:09:45 [facility] [place] [facility] PAIN 0 02/18/2024 14:09:45 [facility] [place] HEIGHT 70 02/18/2024 14:09:45 [facility] [place] TEMPERATURE 97.8 02/18/2024 14:09:45 [facility] [place] [facility] PULSE 64 02/18/2024 14:09:45 [facility] [place] [facility] RESPIRATION 16 02/18/2024 14:09:45 [facility] [place] [facility] Encounters Combined list of: 1) Encounters from Department of Veterans Affairs facilities going back up to thelast 18 months. 2) Encounters from the Department of Defense facilities going back up to 280 months. Location Location Details Encounter Type Encounter Number Reason For Visit Attending Provider ADM Date DC Date Status Disposition Source Theater Facility OUTPATIENT [id number] 07/30 Released w/o Limitations [facility] OUTPATIENT [id number] 10/23 Released w/o Limitations [facility] OUTPATIENT [id number] 02/02 Released with Work/Duty Limitations [facility] OUTPATIENT [id number] 05/25 Released w/o Limitations [facility] Facility OUTPATIENT [id number] 05/26 Released w/o Limitations Theater Facilit y KARLA Houser([facility]) OUTPATIENT [id number] Loose bowels/ shaving profile DERIK DESAI S 06/05 Released w/o Limitations KARLA Houser([facility]) Moi [facility] [place], [place](Yeny shafer Conservat ion-OST) OUTPATIENT [id number] GAIL SHEA 12/10 Released w/o Limitations Vega s [facility] Penny [place], [place](Hear papito Conserv ation-O ST) Theater Facility OUTPATIENT [id number] 06/23 Released w/o Limitations Theater Fac[facility] Theater Facility OUTPATIENT [id number] 08/17 Released w/o Limitations Theater Facilit y Theater Facility OUTPATIENT [id number] 09/19 Released w/o Limitations Theater Facilit y [employer](FD [employer]obiliz ation) OUTPATIENT [id number] TONY DOWNS 09/26 Released w/o Limitations [employer](F D [employer]P Demobil ization ) [employer]([facility] Team B) OUTPATIENT [id number] Annual PHA NANCY MENDOZAYN 09/28 [facility]ased w/o Limitations [employer] [employer]([facility]) OUTPATIENT [id number] [employer] PHA. Pt will bring current paperwo rkNICHO GIRALDO 10/24 Released w/o Limitations [employer]([facility] Team B) [facility]) TELE CONSULT [id number] Notes Entered by: CORI MERCHANT 07 Nov 2013 1342 ------- ------- ------- ------- -- labs MADELINE ENRIQUE 11/07 Referred for Appointment [employer]([facility] Team B) [facility] [employer]([facility] Team A) OUTPATIENT [id number] U-[employer] y PHA 10-29-14 DENNIS CHAUDHARY 11/26 Released w/o Limitations [facility] [employer](Opt ometry [employer]) OUTPATIENT [id number] Notes Entered by: МАРИЯ SANDOVAL T 22 May 2018 0923 ------- ------- ------- ------- -- [employer] MEDPROS TAY SANDOVAL T 05/22 Released w/o Limitations [facility](O ptometr y Cl Funk) [facility] [place] [facility] Outpatient Encounter [id number] 09/24 [facility] [place] [facility] [place] [facility] Outpatient Encounter [id number] 02/07 [facility] [place] [facility] [place] O/P EST LOW 20 MIN [id number] Diagnos is: ICD-10- CM F43.10 Post-tr aumatic stress disorde r, unspeci fied
SEN BREWSTER 02/17 [facility] IELD Procedures Combined list of: 1) Procedures from Department of Veterans Affairs facilities going back up to thelast 18 months, not all CT non-surgical procedures are included; 2) All procedures from the Department of Defense facilities. Procedure Procedure Type Code Date Perfomer Comments Devorah e Screening Test Of Visual Acuity, Quantitative, Bilateral Screening Test Of Visual Acuity, Quantitative, Bilateral 74149 5 GLENYS ORTIZ [facility] Screening Test Of Visual Acuity, Quantitative, Bilateral Screening Test Of Visual Acuity, Quantitative, Bilateral 63803 4 NICHO BALDERAS [facility] Screening Test Of Visual Acuity, Quantitative, Bilateral Screening Test Of Visual Acuity, Quantitative, Bilateral 92875 3 NANCY MENDOZA Uncorr OD:20/10 Uncorr OS:20/10 Uncorr OU:20/10 DoD Ear Protector Attenuation Measurements Ear Protector Attenuation Measurements 12418 0 GAIL SHEA [facility] Patient education, not otherwise cla ified, non-physician provider, group, per se ion 0 GAIL SHEA [facility] TETANUS AND DIPHTHERIA TOXOIDS (TD) ADSORBED WHEN ADMINISTERED TO INDIVIDUALS 7 YEARS OR OLDER, FOR INTRAMUSCULAR USE 0 DoD SKIN TEST; TUBERCULOSIS, INTRADERMAL 7 [facility] SCREENING TEST OF VISUAL ACUITY, QUANTITATIVE, BILATERAL 6 [facility] PATIENT EDUCATION, NOT OTHERWISE CLASSIFIED, NON-PHYSICIAN PROVIDER, GROUP, PER SESSION 0 [facility] COLLECTION OF VENOUS BLOOD BY VENIPUNCTURE 0 [facility] SCREENING TEST OF VISUAL ACUITY, QUANTITATIVE, BILATERAL 5 [facility] SCREENING TEST OF VISUAL ACUITY, QUANTITATIVE, BILATERAL 4 [facility] SCREENING TEST OF VISUAL ACUITY, QUANTITATIVE, BILATERAL 3 [facility] PHYS/OTH QUALIFIED HEALTH TOGGLER QUALIFIED,EDUCATION, TRAIN,LICENSURE/REGU LATION (WHEN APPLICABLE) EDUC SER RENDERED TO PATS IN A GRP SETTING (EG,,OBESITY ,OR DIABETIC INSTRUCT) 4 [facility] URINALYSIS, BY DIP STICK OR TABLET REAGENT FOR BILIRUBIN, GLUCOSE, HEMOGLOBIN, KETONES, LEUKOCYTES, NITRITE, PH, PROTEIN, SPEC GRAVITY, UROBILINOGEN, ANY NUMBER OF CONSTITUENTS; W/O MICRO, NON-AUTO 4 [facility] UNLISTED VACCINE/TOXOID 3 [facility] AUDIOMETRIC TESTING OF GROUPS 3 [facility] IMMUNIZATION ADMINISTRATION (INCLUDES PERCUTANEOUS, INTRADERMAL, SUBCUTANEOUS, OR INTRAMUSCULAR INJECTIONS); EACH ADDITIONAL VACCINE (SINGLE OR COMBINATION VACCINE/TOXOID) 3 [facility] TYPHOID VACCINE, CAPSULAR POLYSACCHARIDE (VICPS), FOR INTRAMUSCULAR USE 3 [facility] Social History Combined list of available smoking, tobacco, and other social history from Department of Defense and Veterans Affairs facilities. Social History Type Response Date Comment Sourc e Tobacco smoking status NHIS CT-TOBACCO NEVER USED 02/18/2024 [facility] D History of tobacco use CT-TOBACCO NEVER USED 11/23/2022 [facility] [place] [facility] History of tobacco use CT-TOBACCO NEVER USED 11/21/2021 [facility] [place] [facility] History of tobacco use LIFETIME NON-TOBACCO USER 02/28/2011 [place] History of tobacco use V1-PT DECLINES TOBACCO CESSATION MEDS 08/07/2008 [place] History of tobacco use QUIT TOBACCO USE IN PAST YEAR 2007 [place] This section is an empty social history section. [facility] Plan of Care List of future care activities from Department of Veterans Affairs facilities. Additional future care activities may be listed in the Assessment and Plan section. Date/Time Care Activity Care Activity Detail Facili ty 02/16/2025 AMBULATORY - MEDICINE AMBULATORY - MEDICI NE [facility] [place] [facility]
[2024-09-23 13:20] VITALS: BMI 28.5
--- NOTE | 2024-09-23 13:20 | MHC.AMNUTRGE ---
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 Allergies aspirin Allergy (Mild, Verified 08/25/24 08:17) Swelling shellfish Allergy (Mild, Uncoded 09/24/23 12:34) Swelling Nutrition Presentation Details: Pt presents for MNT for elevated LFTs and borderline hyperlipidemia food frequency fruits: 0-1/d ve x/wk dairy : 4+/d starches > 20 fish : 0-1 x/wk fried foods: 2-3 x/wk pastries/ice cream and similar: daily physical activity: daily life activities BS Monitoring Most Recent Diabetes Results: Microalb/Creat Ratio TNP 08/20/24 Cholesterol 195 mg/dL (<200) 08/20/24 HDL Cholesterol 58 mg/dL (>40) 08/20/24 Triglycerides 71 mg/dL (<150) 08/20/24 Creatinine 1.26 mg/dL (0.5-1.4) 08/20/24 Blood Urea Nitrogen 16 mg/dL (9-16) 08/20/24 Sodium 137 mmol/L (135-145) 08/20/24 Potassium 4.2 mmol/L (3.3-5.1) 08/20/24 Chloride 104 mmol/L (96-108) 08/20/24 Carbon Dioxide 27 mmol/L (22-29) 08/20/24 Calcium 9.6 mg/dL (8.4-10.2) 08/20/24 AST 52 U/L (5-37) H 08/20/24 ALT 31 U/L (0-40) 08/20/24 Total Protein 7.6 g/dL (6.5-8.0) 08/20/24 Albumin 4.0 g/dL (3.5-5.0) 08/20/24 [facility] Social History Housing: House Patient Tobacco Use Status: Never used Tobacco e-Cigarette/Vaping Use: Never Used Second Hand Smoke Exposure: No service: Yes Current occupational status: employed Current occupation: [employer] Cognitive needs: No Hearing needs: No Vision needs: No Assessment & Plan Assessment & Plan (1) Borderline high cholesterol: Code(s): E78.9 - Disorder of lipoprotein metabolism, unspecified Category: Medical Plan: Wt: 90 Kg ( 09/30 ) Est kcal needs as per MSJ: 2200 (40% carb, 30% protein/fat) Est fluid needs as per 25-30 ml/d: 2700 Est prot per day as per 1 g/kg bw: 90 Recommend fiber intake : 8-10 g per day and gradually increase to 25-28 g per day for women and 35-38 g for men or as tolerated Recommend sodium intake per day : less than 2300 mg Educated patient on: ( R = reviewed V = verbalizes understanding N/R = needs review N/A = not applicable Food sources of carbohydrate, adequate serving sizes and its role in various health conditions: R Differences between complex carbohydrates a simple carbohydrates, role of fiber in diet: R Lean protein sources of foods: R Differences between types of fats and role in diet (mono on saturated fat fatty acids, saturated fatty acids, trans fats): R Food sources of sodium in salt and healthy modifications for heart health in kidney health: R V R/V Vitamins and minerals: R Healthy plate method concept: R Physical activity: Benefits a precaution: R Patient Instructions: Work on choosing baked vs fried foods Gradually introduce whole grain foods/fiber rich foods and have more water as you choose fiber rich foods to prevent constipation see list of low fat food options from the [place] education material printed Coding Level of Care Code Nutr Indiv Intake (59317) Diagnoses Borderline high cholesterol E78.9 Time Spent (min) 30
== END 2024-09-23 14:10 | disposition home or self-care (01) ==
PROVIDERS: PCP Family Medicine; Visit Provider Dietitian, Registered
DX: E78.9 Disorder of lipoprotein metabolism, unspecified (principal)

== ENCOUNTER → 2024-09-23 12:54 | Outpatient (BNVA) | payer OTHER, SELFPAY | PROVIDERS: PCP Family Medicine; Visit Provider Dietitian, Registered | DX: E78.9 Disorder of lipoprotein metabolism, unspecified (principal) | CPT/HCPCS: 97802 ==

== ENCOUNTER 2024-11-04 14:02 | Outpatient (AMB) | payer OTHER, SELFPAY ==
--- NOTE | 2024-11-04 14:11 | A.OFFVIS_ITS ---
VS Expanded 11/04/24 14:14 Height 5 ft 10 in Weight 186 lb 15.232 oz BMI 26.8 Intake Visit Reasons: High chol Allergies aspirin Allergy (Mild, Verified 08/25/24 08:17) Swelling shellfish Allergy (Mild, Uncoded 09/24/23 12:34) Swelling Nutrition Presentation Details: Pt presents for MNT f/u for hypercholesterolemia Pt reports working on diet modifications. Reports feeling well, no concerns expressed. BS Monitoring Most Recent Diabetes Results: Microalb/Creat Ratio TNP 08/20/24 Cholesterol 195 mg/dL (<200) 08/20/24 HDL Cholesterol 58 mg/dL (>40) 08/20/24 Triglycerides 71 mg/dL (<150) 08/20/24 Creatinine 1.26 mg/dL (0.5-1.4) 08/20/24 Blood Urea Nitrogen 16 mg/dL (9-16) 08/20/24 Sodium 137 mmol/L (135-145) 08/20/24 Potassium 4.2 mmol/L (3.3-5.1) 08/20/24 Chloride 104 mmol/L (96-108) 08/20/24 Carbon Dioxide 27 mmol/L (22-29) 08/20/24 Calcium 9.6 mg/dL (8.4-10.2) 08/20/24 AST 52 U/L (5-37) H 08/20/24 ALT 31 U/L (0-40) 08/20/24 Total Protein 7.6 g/dL (6.5-8.0) 08/20/24 Albumin 4.0 g/dL (3.5-5.0) 08/20/24 [facility] Social History Housing: House Patient Tobacco Use Status: Never used Tobacco e-Cigarette/Vaping Use: Never Used Second Hand Smoke Exposure: No service: Yes Current occupational status: employed Current occupation: [employer] Cognitive needs: No Hearing needs: No Vision needs: No Assessment & Plan Assessment & Plan (1) Borderline high cholesterol: Code(s): E78.9 - Disorder of lipoprotein metabolism, unspecified Category: Medical Plan: Wt: 90 Kg ( 09/30 ), 85kg (10/2024) Est kcal needs as per MSJ: 2200 + 500/1000 depending on physical activity) (40% carb, 30% protein/fat) Est fluid needs as per 25-30 ml/d: 2700 Est prot per day as per 1 g/kg bw: 90 Recommend fiber intake : 8-10 g per day and gradually increase to 25-28 g per day for women and 35-38 g for men or as tolerated Recommend sodium intake per day : less than 2300 mg Educated patient on: ( R = reviewed V = verbalizes understanding N/R = needs review N/A = not applicable * Food sources of carbohydrate, adequate serving sizes and its role in various health conditions: R * Differences between complex carbohydrates a simple carbohydrates, role of fiber in diet: R * Lean protein sources of foods: R * Differences between types of fats and role in diet (mono on saturated fat fatty acids, saturated fatty acids, trans fats): R * Food sources of sodium in salt and healthy modifications for heart health in kidney health: R V R/V * Vitamins and minerals: R * Healthy plate method concept: R * Physical activity: Benefits a precaution: R Patient Instructions: Continue working on choosing fiber rich foods (oats, whole grains, seeds, fruits, veg,) and increase water/fluids to prevent constipation as you increase fiber intake. Choose MUFA sources of fats (olive oil, avocado, nuts, fatty fish Coding Level of Care Code Nutr Indiv Subseq (58897) Diagnoses Borderline high cholesterol E78.9 Time Spent (min) 30
[2024-11-04 14:14] VITALS: BMI 26.8
--- OUTSIDE RECORDS SUMMARY | 2024-11-04 15:02 | XMS_ITS | Continuity of Care Document ---
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 It does not include entries that were removed or entered in error. Problem Status Onset Date Problem Type Date of Resolution Comments Source Gastroesophageal reflux disease Active Condition Aug 21, 2008 Entered By: RICKEY MAC Comment: UGI, AUG 15: Unremarkable Study [facility] Non-VA Providers: Active Condition [facility] 2023 Entered By: KIEL BREWSTER Comment: Primary Care: Dr. Ed Camara [facility] Posttraumatic stress disorder Active Condition February 18, 2024 Entered By: KIEL BREWSTER Comment: 70% [facility] visit for: administrative purpose Inactive Condition [facility] headache syndromes Active Condition [facility] acne Inactive Condition [facility] visit for: screening exam pulmonary tuberculosis Inactive Condition [facility] lack of adequate sleep Inactive Condition [facility] nasal passage blockage (stuffiness) Inactive Condition [facility] joint pain, localized in the wrist Inactive Condition [facility] pseudofolliculitis barbae Inactive Condition [facility] hip sprain Inactive Condition [facility] visit for: services physical Active Condition [facility] visit for: ears, nose, and throat exam Active Condition [facility] gastritis Active Condition [facility] exposure to STD Active Condition [facility] esophageal reflux Active Condition [facility] tendonitis patellar Active Condition [facility] urethritis chlamydia trachomatis Inactive Condition [facility] chlamydial infections Inactive Condition CHLAMYDIAL INFECTIONS [facility] dermatophytosis benavides Active Condition DERMATOPHYTOSIS BENAVIDES [facility] Diagnosis: ICD-10-CM F43.10 Post-traumatic stress disorder, unspecified Active Diagnosis [facility] Medications Combined list of outpatient medications from [...] NEEDED ORAL ACTIVE MURPHY BREWSTER SA 20[address] [place] Allergies, Adverse Reactions, Alerts Combined list of allergies from Department of Defense and Veterans Affairs facilities. It does not include entries that were removed or entered in error. Substance Category Reaction Severity Reaction type Status Date Reported Comments Source ACETYL SALICYLIC ACID Drug allergy (disorder) Nausea and Vomiting active 7 [facility] ASPIRIN Propensity to adverse reactions to drug (finding) N[facility] and vomiting [facility] ASPR[facility] EC LOW DOSE (ASPIRIN) Drug allergy (disorder) Urticaria active 7 [facility] [place] OTHER {Cla } Drug allergy (disorder) Vomiting active 7 [facility] [place] SHELLFISH Propensity to adverse reactions to food (finding) Urticaria active 7 [facility] {Cla } Food allergy (disorder) Urticaria active 7 [facility] [place] Immunizations Combined list of available immunizations from the Department of Defense and Veterans Affairs facilities. Immunization Series Date Given Administered By Site Reaction Lot Number CVX Code Drug Adobe Layer Status Comments Source INFLUENZA, UNSPECIFIED FORMULATION 2021 88 [facility] Influenza, injectable, MDCK, preservative free, quadrivalent 2019 BOGDASARIAN, () Not Given Influenza , injectabl e, MDCK, preservat avi free, quadrival ent [facility] Influenza, injectable, MDCK, preservative free, quadrivalent 2016 BOGDASARIAN, () Not Given Influenza , injectabl e, MDCK, preservat avi free, quadrival ent [facility] Influenza, seasonal, injectable, preservative free 1 2016 [id number] Seqirus (SEQ) comple t ed Influenza , seasonal, injectabl e, preservat avi free DoD Influenza, seasonal, injectable 1 2015 [id number] [employer] (CSL) complet ed Influenza , seasonal, injectabl e [facility] Influenza, seasonal, injectable, preservative free 1 2014 [id number] Other (OTH) complet ed Influenza , seasonal, injectabl e, preservat avi free [facility] measles, mumps and rubella virus vaccine 0 2013 [id number] Merck (MSD) complet ed measles, mumps and rubella virus vaccine DoD Influenza, seasonal, injectable, preservative free 1 2013 [id number] Pathagility (SKB) complet ed Influenza , seasonal, injectabl e, preservat avi free DoD varicella virus vaccine 0 2013 21 () Not Given varicella virus vaccine DoD Influenza, seasonal, injectable, preservative free 1 2012 [id number] SovTech, Inc. (MED) complet ed Influenza , seasonal, injectabl e, preservat avi free DoD influenza virus vaccine, live, attenuated, for intranasal use 1 2011 [id number] SovTech[employer] Inc. (MED) complet ed influenza virus vaccine, live, attenuate d, for intranasa l use DoD tetanus toxoid, reduced diphtheria toxoid, and acellular pertu is vaccine, adsorbed 1 2009 [id number] 115 Sanofi Pasteur (PMC) complet ed tetanus toxoid, reduced diphtheri a toxoid, and acellular pertussis vaccine, adsorbed DoD FLU,3 YRS (HISTORICAL) 2009 88 complet ed in [facility] [facility] anthrax vaccine 7 2009 [id number] Unknown (UNK) comple t ed anthrax vaccine DoD anthrax vaccine 6 2009 [id number] [employer] [place] ([facility]) complet ed anthrax vaccine DoD typhoid Vi capsular polysaccharid e vaccine 1 2009 [id number] Other (OTH) complet ed typhoid Vi capsular polysacch aride vaccine DoD Novel influenza-H1N 1-09, injectable 1 2009 UNK 127 Unknown (UNK) Not Given Novel influenza -V4X3-16, injectabl e DoD influenza virus vaccine, split virus (incl. purified surface antigen)-reti red CODE 2 2008 UNK 15 Unknown (UNK) Not Given influenza virus vaccine, split virus (incl. purified surface antigen)- retired CODE DoD hepatitis A vaccine, adult dosage 3 2008 [id number] 52 Unknown (UNK) complet ed hepatitis A vaccine, adult dosage DoD DTAP, UNSPECIFIED FORMULATION 2008 107 complet ed [facility] [place] [facility] typhoid Vi capsular polysaccharid e vaccine 1 2005 UNK 101 Unknown (UNK) comple t ed typhoid Vi capsular polysacch aride vaccine DoD hepatitis A vaccine, adult dosage 2 2005 [id number] 52 Unknown (UNK) complet ed hepatitis A vaccine, adult dosage DoD anthrax vaccine 5 2003 UNK 24 [employer] [place] ([facility]) complet ed anthrax vaccine DoD hepatitis B vaccine, adult dosage 2 2003 [id number] 43 Way[employer] (SKB) complet ed hepatitis B vaccine, adult dosage DoD influenza virus vaccine, split virus (incl. purified surface antigen)-reti red CODE 1 2003 [id number] PowderJ[employer] (PWJ) complet ed influenza virus vaccine, split virus (incl. purified surface antigen)- retired CODE DoD anthrax vaccine 3 2002 [id number] [facility] [place] ([facility]) complet ed anthrax vaccine DoD anthrax vaccine 3 2002 UNK 24 [facility] [employer] [place] ([facility]) complet ed anthrax vaccine DoD anthrax vaccine 2 2002 UNK 24 [facility] ([facility]) complet ed anthrax vaccine DoD tetanus and diphtheria toxoids, adsorbed, preservative free, for adult use (2 Lf of tetanus toxoid and 2 Lf of diphtheria toxoid) 0 2002 [id number] Sanofi Pasteur ([facility]) complet ed tetanus and diphtheri a toxoids, adsorbed, preservat avi free, for adult use (2 Lf of tetanus toxoid and 2 Lf of diphtheri a toxoid) DoD anthrax vaccine 1 2002 UNK 24 [facility]Def[facility] ([facility]) complet ed anthrax vaccine DoD hepatitis B vaccine, adult dosage 1 2002 [id number] 43 SmithRegroup Therapyine (SKB) complet ed hepatitis B vaccine, adult dosage DoD vaccinia (smallpox) vaccine 0 2002 [id number] Evelyne (ALLI) complet ed vaccinia (smallpox ) vaccine DoD typhoid Vi capsular polysaccharid e vaccine 0 2002 [id number] Sanofi Pasteur (PMC) complet ed typhoid Vi capsular polysacch aride vaccine DoD hepatitis A and hepatitis B vaccine 1 02/11/ 2003 [id number] Unknown (UNK) complet ed hepatitis [...] Nov 23, 2022 12:00 PM Reporting Lab: [facility] S[facility] ROCKETHOMEGUADALUPE COUNTY HOSPITALCurbsy [address] [address] Performing Lab: [facility] S[facility] R[address]ETHOME[address] [address] [employer] BASIC METABOLI C PANEL (fasting ) GLUCOSE [MASS/VOLU ME] IN SERUM OR PLASMA 99 mg/dL 65 - 100 02/10 Specimen Type: SERUM No comment entered. Ordering Provider: NATE CADENA IE Report Released Date/Time: Nov 23, 2022 12:00 PM Reporting Lab: [facility] S[facility]SOU[facility] R[address]ETHOME[address] [address] Performing Lab: [facility] S[facility] [address]ETHOME[address] [address] [employer] BASIC METABOLI C PANEL (fasting ) SODIUM [MOLES/VOL UME] IN SERUM OR PLASMA 138 mmol/L 135 - 145 02/10 Specimen Type: SERUM No comment entered. Ordering Provider: NATE CADENA IE Report Released Date/Time: Nov 23, 2022 12:00 PM Reporting Lab: [facility]SOU[facility] [place] [facility] [address] [facility] [address] Performing Lab: [facility] [address] [facility] [address] [place] BASIC METABOLI C PANEL (fasting ) POTASSIUM [MOLES/VOL UME] IN SERUM OR PLASMA 4.0 mmol/L 3.5 - 5.0 02/10 Specimen Type: SERUM No comment entered. Ordering Provider: NATE CADENA IE Report Released Date/Time: Nov 23, 2022 12:00 PM Reporting Lab: [facility] [address] [facility] [address] Performing Lab: [facility] [address] [address] [place] BASIC METABOLI C PANEL (fasting ) CHLORIDE [MOLES/VOL UME] IN SERUM OR PLASMA 104 mmol/L 100 - 110 02/10 Specimen Type: SERUM No comment entered. Ordering Provider: NATE CADENA IE Report Released Date/Time: Nov 23, 2022 12:00 PM Reporting Lab: [facility] [address] [address] Performing Lab: [facility]USE[address] [address] [place] BASIC METABOLI C PANEL (fasting ) CARBON DIOXIDE, TOTAL [MOLES/VOL UME] IN SERUM OR PLASMA 26 meq/L 20 - 30 02/10 Specimen Type: SERUM No comment entered. Ordering Provider: NATE CADENA IE Report Released Date/Time: Nov 23, 2022 12:00 PM Reporting Lab: [facility] [address] [facility] [address] Performing Lab: [facility]ITALUSE[address] [address] [place] BASIC METABOLI C PANEL (fasting ) CREATININE [MASS/VOLU ME] IN SERUM OR PLASMA 1.26 mg/dL 0.50 - 1.40 02/10 Specimen Type: SERUM No comment entered. Ordering Provider: NATE CADENA IE Report Released Date/Time: Nov 23, 2022 12:00 PM Reporting Lab: [facility] [address] [address] Performing Lab: [address] [address] [place] BASIC METABOLI C PANEL (fasting ) GLOMERULAR FILTRATION RATE/1.73 SQ M.PREDICTE D [VOLUME RATE/AREA] IN SERUM, PLASMA OR BLOOD BY CREATININE -BASED FORMULA (CKD-EPI 2020) 73 mL/min 60 02/10 Specimen Type: SERUM No comment entered. Ordering Provider: NATE CADENA IE Report Released Date/Time: Nov 23, 2022 12:00 PM Reporting Lab: [address] [address] Performing Lab: [address] [address] [place] LIPID PANEL FASTING CHOLESTERO L [MASS/VOLU ME] IN SERUM OR PLASMA 189 mg/dL 02/10 Specimen Type: SERUM No comment entered. Ordering Provider: NATE CADENA IE Report Released Date/Time: Nov 23, 2022 12:00 PM Reporting Lab: [address] [address] Performing Lab: [address] [address] [place] LIPID PANEL FASTING TRIGLYCERI DE [MASS/VOLU ME] IN SERUM OR PLASMA 82 mg/dL 0 - 150 02/10 Specimen Type: SERUM No comment entered. Ordering Provider: NATE CADENA IE Report Released Date/Time: Nov 23, 2022 12:00 PM Reporting Lab: [address] [address] Performing Lab: [address] [address] [place] LIPID PANEL FASTING CHOLESTERO L IN LDL [MASS/VOLU ME] IN SERUM OR PLASMA BY CALCULATIO N 115 mg/dL 0 - 129 02/10 Specimen Type: SERUM No comment entered. Ordering Provider: NATE CADENA IE Report Released Date/Time: Nov 23, 2022 12:00 PM Reporting Lab: [facility]ITALRCULLMAN REGION[facility]ICAL CENTERN [facility]ITALUSEHERKIM[facility] [address] [facility] [address] Performing Lab: [facility] HOSPITALRCULLMAN REGIONAL MEDICAL CENTERN [facility]ITALUSEHERKIM[facility] [address] [facility] [address] [place] LIPID PANEL FASTING CHOLESTERO L.TOTAL/CH OLESTEROL IN HDL [MASS RATIO] IN SERUM OR PLASMA 3.3 02/10 Specimen Type: SERUM No comment entered. Ordering Provider: NATE CADENA IE Report Released Date/Time: Nov 23, 2022 12:00 PM Reporting Lab: [facility]OSPITALRCULLMAN REGIONAL MEDICAL CENTERN [address] [address] Performing Lab: [facility]OSPITALRCULLMAN REGIONAL MEDICAL CENTERN [address] [address] [place] LIPID PANEL FASTING CHOLESTERO L IN HDL [MASS/VOLU ME] IN SERUM OR PLASMA 58 mg/dL 40 - 60 02/10 Specimen Type: SERUM No comment entered. Ordering Provider: NATE CADENA IE Report Released Date/Time: Nov 23, 2022 12:00 PM Reporting Lab: [facility]ITALRCULL[facility] MEDICAL CENTERN [address] [address] Performing Lab: [facility]OSPITALRCULLMAN REGION[facility] CENTERN [facility]ITALUSE[address] [address] [place] LIVER FUNCTION PROTEIN [MASS/VOLU ME] IN SERUM OR PLASMA 7.6 g/dL 6.0 - 8.3 02/10 Specimen Type: SERUM No comment entered. Ordering Provider: NATE CADENA IE Report Released Date/Time: Nov 23, 2022 12:00 PM Reporting Lab: [facility]OSPITALRCULLMAN [facility]ICAL CENTERN [address] [address] Performing Lab: [facility]OS[facility]ITALRCULL[facility] CENTERN [facility]ITALUSE[address] [address] [place] LIVER FUNCTION ALBUMIN [MASS/VOLU ME] IN SERUM OR PLASMA 3.8 g/dL 3.5 - 5.0 02/10 Specimen Type: SERUM No comment entered. Ordering Provider: NATE CADENA IE Report Released Date/Time: Nov 23, 2022 12:00 PM Reporting Lab: [facility] HOSPITALRVETERANS AFFAIRS MEDICAL CENTER-TUSCALOOSATRN [address] [address] Performing Lab: [facility]OSPITALRCULLMAN REGION[facility] MEDICAL CENTERN [address] [address] [facility] LIVER FUNCTION ALKALINE PHOSPHATAS E [ENZYMATIC ACTIVITY/V OLUME] IN SERUM OR PLASMA 59 U/L 40 - 150 02/10 Specimen Type: SERUM No comment entered. Ordering Provider: NATE CADENA IE Report Released Date/Time: Nov 23, 2022 12:00 PM Reporting Lab: [facility]ITALRCULLMAN REGION[facility] MEDICAL CENTERN [address] [address] Performing Lab: [facility]OS[facility]ITALRCULLMAN REGIONAL MEDICAL CENTERN [address] [address] [facility] LIVER FUNCTION ASPARTATE AMINOTRANS FERASE [ENZYMATIC ACTIVITY/V OLUME] IN SERUM OR PLASMA 26 U/L 5 - 34 02/10 Specimen Type: SERUM No comment entered. Ordering Provider: NATE CADENA IE Report Released Date/Time: Nov 23, 2022 12:00 PM Reporting Lab: [facility]ITALRCULLMAN [facility]ICAL CENTERN [address] [address] Performing Lab: [facility]ITALRCULL[facility]ICAL CENTERN [address] [address] [facility] LIVER FUNCTION ALANINE AMINOTRANS FERASE [ENZYMATIC ACTIVITY/V OLUME] IN SERUM OR PLASMA 20 U/L 02/10 Specimen Type: SERUM No comment entered. Ordering Provider: NATE CADENA IE Report Released Date/Time: Nov 23, 2022 12:00 PM Reporting Lab: [facility]OSPITALRCULLMAN REGION[facility] MEDICAL CENTERN [address] [address] Performing Lab: [facility] [address] [address] [facility] LIVER FUNCTION BILIRUBIN. TOTAL [MASS/VOLU ME] IN SERUM OR PLASMA 0.6 mg/dL 0.2 - 1.2 02/10 Specimen Type: SERUM No comment entered. Ordering Provider: NATE CADENA IE Report Released Date/Time: Nov 23, 2022 12:00 PM Reporting Lab: [facility] [address] [address] Performing Lab: [facility] [address] [address] [place] HEMOGLOB IN A1C PANEL HEMOGLOBIN [...] Nov 23, 2022 12:00 PM Reporting Lab: [address] [address] Performing Lab: [address] [address] [place] TSH THYROTROPI N [UNITS/VOL UME] IN SERUM OR PLASMA 1.45 u[IU]/mL 0.35 - 5.00 02/10 Specimen Type: SERUM No comment entered. Ordering Provider: NATE CADENA IE Report Released Date/Time: Nov 23, 2022 12:00 PM Reporting Lab: [address] [address] Performing Lab: [address] [address] [place] CBC AND DIFF (AUTO) LEUKOCYTES [#/VOLUME] IN BLOOD BY AUTOMATED COUNT 3.19 10*3/uL 4.50 - 11.00 02/10 L Specimen Type: BLOOD No comment entered. Ordering Provider: NATE CADENA IE Report Released Date/Time: Nov 23, 2022 12:00 PM Reporting Lab: [address] [address] Performing Lab: [address] [address] [place] CBC AND DIFF (AUTO) ERYTHROCYT ES [#/VOLUME] IN BLOOD BY AUTOMATED COUNT 4.83 10*6/uL 4.23 - 5.66 02/10 Specimen Type: BLOOD No comment entered. Ordering Provider: NATE CADENA IE Report Released Date/Time: Nov 23, 2022 12:00 PM Reporting Lab: [facility] HOSPITALRL WSTRN [place] [facility] [address] [facility] [address] Performing Lab: [facility] HOSPITALRL TRN [facility] [address] [facility] [address] [place] CBC AND DIFF (AUTO) HEMOGLOBIN [MASS/VOLU ME] IN BLOOD 14.8 g/dL 12.8 - 17 02/10 Specimen Type: BLOOD No comment entered. Ordering Provider: NATE CADENA IE Report Released Date/Time: Nov 23, 2022 12:00 PM Reporting Lab: [facility] HOSPITALRVETERANS AFFAIRS MEDICAL CENTER-TUSCALOOSATRN [facility]PITALUSETS [address] [address] Performing Lab: [facility] HOSPITALRL TRN [place] [address] [address] [place] CBC AND DIFF (AUTO) HEMATOCRIT [VOLUME FRACTION] OF BLOOD BY AUTOMATED COUNT 43.0 39.2 - 50.4 02/10 Specimen Type: BLOOD No comment entered. Ordering Provider: NATE CADENA IE Report Released Date/Time: Nov 23, 2022 12:00 PM Reporting Lab: [facility]OSPITALRVETERANS AFFAIRS MEDICAL CENTER-TUSCALOOSATRN [facility]ITALUSETS [address] [address] Performing Lab: [facility]OSPITALRVETERANS AFFAIRS MEDICAL CENTER-TUSCALOOSATRN [facility]ITALUSETS [address] [address] [place] CBC AND DIFF (AUTO) MCV [ENTITIC VOLUME] BY AUTOMATED COUNT 89.0 fL 82 - 99 02/10 Specimen Type: BLOOD No comment entered. Ordering Provider: NATE CADENA IE Report Released Date/Time: Nov 23, 2022 12:00 PM Reporting Lab: [facility] HOSPITALRVETERANS AFFAIRS MEDICAL CENTER-TUSCALOOSATRN [address] [address] Performing Lab: [facility]OSPITALRVETERANS AFFAIRS MEDICAL CENTER-TUSCALOOSATRN [address] [address] [place] CBC AND DIFF (AUTO) MCHC [MASS/VOLU ME] BY AUTOMATED COUNT 34.4 g/dL 30.8 - 35.1 02/10 Specimen Type: BLOOD No comment entered. Ordering Provider: NATE CADENA IE Report Released Date/Time: Nov 23, 2022 12:00 PM Reporting Lab: [facility] HOSPITALRL WSTRN [address] [address] Performing Lab: ID CNTRL WSTRN [address] [address] [place] CBC AND DIFF (AUTO) PLATELETS [#/VOLUME] IN BLOOD BY AUTOMATED COUNT 220 10*3/uL 140 - 360 02/10 Specimen Type: BLOOD No comment entered. Ordering Provider: NATE CADENA IE Report Released Date/Time: Nov 23, 2022 12:00 PM Reporting Lab: [facility] HOSPITALRL TRN [address] [address] Performing Lab: [facility] HOSPITALRL TRN [address] [address] [place] CBC AND DIFF (AUTO) ERYTHROCYT E DISTRIBUTI ON WIDTH [RATIO] BY AUTOMATED COUNT 11.5 12.0 - 16.0 02/10 L Specimen Type: BLOOD No comment entered. Ordering Provider: NATE CADENA IE Report Released Date/Time: Nov 23, 2022 12:00 PM Reporting Lab: [facility] HOSPITALRL WSTRN [address] [address] Performing Lab: ID CNTRL WSTRN [address] [address] [place] CBC AND DIFF (AUTO) MONOCYTES [#/VOLUME] IN BLOOD BY AUTOMATED COUNT 0.26 10*3/uL 0.30 - 1.10 02/10 L Specimen Type: BLOOD No comment entered. Ordering Provider: NATE CADENA IE Report Released Date/Time: Nov 23, 2022 12:00 PM Reporting Lab: [facility] HOSPITALRVETERANS AFFAIRS MEDICAL CENTER-TUSCALOOSATRN [address] [address] Performing Lab: ID CNTRL [place] [facility] [address] [facility] [address] [place] CBC AND DIFF (AUTO) MCH [ENTITIC MASS] BY AUTOMATED COUNT 30.6 pg 26.2 - 32.6 02/10 Specimen Type: BLOOD No comment entered. Ordering Provider: NATE CADENA IE Report Released Date/Time: Nov 23, 2022 12:00 PM Reporting Lab: ID CN[facility]L [place] [facility] [address] [facility] [address] Performing Lab: ID CNTRL [place] [facility] [address] [facility] [address] [place] CBC AND DIFF (AUTO) NEUTROPHIL S/100 LEUKOCYTES IN BLOOD BY AUTOMATED COUNT 33.5 43.7 - 75.8 02/10 L Specimen Type: BLOOD No comment entered. Ordering Provider: NATE CADENA IE Report Released Date/Time: Nov 23, 2022 12:00 PM Reporting Lab: [facility] [place] [address] [address] Performing Lab: ID CNTRL [place] [address] [address] [place] CBC AND DIFF (AUTO) LYMPHOCYTE S/100 LEUKOCYTES IN BLOOD BY AUTOMATED COUNT 53.3 14.0 - 42.3 02/10 H Specimen Type: BLOOD No comment entered. Ordering Provider: NATE CADENA IE Report Released Date/Time: Nov 23, 2022 12:00 PM Reporting Lab: [facility] [place] [address] [address] Performing Lab: ID [facility] [place] [address] [address] [place] CBC AND DIFF (AUTO) MONOCYTES/ 100 LEUKOCYTES IN BLOOD BY AUTOMATED COUNT 8.2 5.1 - 13.7 02/10 Specimen Type: BLOOD No comment entered. Ordering Provider: NATE CADENA IE Report Released Date/Time: Nov 23, 2022 12:00 PM Reporting Lab: [facility] [place] [address] [address] Performing Lab: ID CNTRL WSTRN [address] [address] [place] CBC AND DIFF (AUTO) EOSINOPHIL S/100 LEUKOCYTES IN BLOOD BY AUTOMATED COUNT 3.8 0.4 - 6.8 02/10 Specimen Type: BLOOD No comment entered. Ordering Provider: NATE CADENA IE Report Released Date/Time: Nov 23, 2022 12:00 PM Reporting Lab: [facility]OS[facility]ITALR WSTRN [address] [address] Performing Lab: ID CNTRL TRN [facility]ITALUSE[address] [place] [address] [address] [place] CBC AND DIFF (AUTO) BASOPHILS/ 100 LEUKOCYTES IN BLOOD BY AUTOMATED COUNT 0.9 0.1 - 2.0 02/10 Specimen Type: BLOOD No comment entered. Ordering Provider: NATE CADENA IE Report Released Date/Time: Nov 23, 2022 12:00 PM Reporting Lab: [facility]ERN [address] [address] Performing Lab: ID CNTRL TRN [address] [address] [place] CBC AND DIFF (AUTO) NEUTROPHIL S [#/VOLUME] IN BLOOD BY AUTOMATED COUNT 1.07 10*3/uL 2.20 - 7.60 02/10 L Specimen Type: BLOOD No comment entered. Ordering Provider: NATE CADENA IE Report Released Date/Time: Nov 23, 2022 12:00 PM Reporting Lab: [facility]ITALR W[facility] [address] Performing Lab: [facility] TRN [address] [address] [place] CBC AND DIFF (AUTO) LYMPHOCYTE S [#/VOLUME] IN BLOOD BY AUTOMATED COUNT 1.70 10*3/uL 1.00 - 3.20 02/10 Specimen Type: BLOOD No comment entered. Ordering Provider: NATE CADENA IE Report Released Date/Time: Nov 23, 2022 12:00 PM Reporting Lab: [facility]ITALRVETERANS AFFAIRS MEDICAL CENTER-TUSCALOOSATRN [address] [address] Performing Lab: [facility] [address] [address] [place] CBC AND DIFF (AUTO) EOSINOPHIL S [#/VOLUME] IN BLOOD BY AUTOMATED COUNT 0.12 10*3/uL 0.03 - 0.44 02/10 Specimen Type: BLOOD No comment entered. Ordering Provider: NATE CADENA IE Report Released Date/Time: Nov 23, 2022 12:00 PM Reporting Lab: [facility]ITALRL W[facility]N [facility]ITALUSETS [address] [address] Performing Lab: [facility] [address] [address] [place] CBC AND DIFF (AUTO) BASOPHILS [#/VOLUME] IN BLOOD BY AUTOMATED COUNT 0.03 10*3/uL 0.01 - 0.13 02/10 Specimen Type: BLOOD No comment entered. Ordering Provider: NATE CADENA IE Report Released Date/Time: Nov 23, 2022 12:00 PM Reporting Lab: [facility]OSPITALRL TRN [facility]ITALUSETS [address] [address] Performing Lab: [facility]OSPITALRL TRN [facility]USETS [address] [address] [place] CBC AND DIFF (AUTO) IMMATURE GRANULOCYT ES/100 LEUKOCYTES IN BLOOD BY AUTOMATED COUNT 0.3 0.0 - 0.7 02/10 Specimen Type: BLOOD No comment entered. Ordering Provider: NATE CADENA IE Report Released Date/Time: Nov 23, 2022 12:00 PM Reporting Lab: [facility]ITALRL W[facility]N [facility]ITALUSETS [address] [address] Performing Lab: [facility]OSPITALRL TRN [facility]ITALUSETS [address] [address] [place] CBC AND DIFF (AUTO) IMMATURE GRANULOCYT ES [#/VOLUME] IN BLOOD 0.01 10*3/uL 0.00 - 0.06 02/10 Specimen Type: BLOOD No comment entered. Ordering Provider: NATE CADENA IE Report Released Date/Time: Nov 23, 2022 12:00 PM Reporting Lab: [facility]OSPITALRVETERANS AFFAIRS MEDICAL CENTER-TUSCALOOSATRN [facility]USE[address] [address] Performing Lab: [facility] [address] [place] PSA PROSTATE SPECIFIC AG [MASS/VOLU ME] IN SERUM OR PLASMA 0.52 ng/mL 0.00 - 4.00 02/10 Specimen Type: SERUM No comment entered. Ordering Provider: NATE CADENA IE Report Released Date/Time: Nov 23, 2022 12:00 PM Reporting Lab: [facility] [address] Performing Lab: [facility] [address] [address] [place] URINALYS IS COLOR OF URINE Light-Ye llow 02/10 Specimen Type: URINE Comment: If Glucose = >500 and Ketones are positive, please alert the Physician. Ordering Provider: NATE CADENA IE Report Released Date/Time: Nov 23, 2022 12:00 PM Reporting Lab: [facility] [address] Performing Lab: [facility] [address] [address] [place] URINALYS IS APPEARANCE OF URINE Clear 02/10 Specimen Type: URINE Comment: If Glucose = >500 and Ketones are positive, please alert the Physician. Ordering Provider: NATE CADENA IE Report Released Date/Time: Nov 23, 2022 12:00 PM Reporting Lab: [facility] [address] [address] Performing Lab: [facility] [address] [place] URINALYS IS GLUCOSE [MASS/VOLU ME] IN URINE NEGATIVE mg/dL 02/10 Specimen Type: URINE Comment: If Glucose = >500 and Ketones are positive, please alert the Physician. Ordering Provider: NATE CADENA IE Report Released Date/Time: Nov 23, 2022 12:00 PM Reporting Lab: [facility] [address] [address] Performing Lab: [facility] [address] [address] [place] URINALYS IS KETONES [MASS/VOLU ME] IN URINE BY TEST STRIP NEGATIVE mg/dL 02/10 Specimen Type: URINE Comment: If Glucose = >500 and Ketones are positive, please alert the Physician. Ordering Provider: NATE CADEAN IE Report Released Date/Time: Nov 23, 2022 12:00 PM Reporting Lab: [facility] [address] [address] Performing Lab: [address] [address] [place] URINALYS IS ERYTHROCYT ES [PRESENCE] IN URINE SEDIMENT BY LIGHT MICROSCOPY NEGATIVE mg/dL 02/10 Specimen Type: URINE Comment: If Glucose = >500 and Ketones are positive, please alert the Physician. Ordering Provider: NATE CADENA IE Report Released Date/Time: Nov 23, 2022 12:00 PM Reporting Lab: [facility] [address] [address] Performing Lab: [address] [address] [place] URINALYS IS PROTEIN [MASS/VOLU ME] IN URINE BY TEST STRIP NEGATIVE mg/dL 02/10 Specimen Type: URINE Comment: If Glucose = >500 and Ketones are positive, please alert the Physician. Ordering Provider: NATE CADENA IE Report Released Date/Time: Nov 23, 2022 12:00 PM Reporting Lab: [facility] [address] [address] Performing Lab: [address] [address] [place] URINALYS IS NITRITE [PRESENCE] IN URINE NEGATIVE mg/dL 02/10 Specimen Type: URINE Comment: If Glucose = >500 and Ketones are positive, please alert the Physician. Ordering Provider: NATE CADENA IE Report Released Date/Time: Nov 23, 2022 12:00 PM Reporting Lab: [address] [address] Performing Lab: [address] [address] [place] URINALYS IS BILIRUBIN. TOTAL [PRESENCE] IN URINE NEGATIVE mg/dL 02/10 Specimen Type: URINE Comment: If Glucose = >500 and Ketones are positive, please alert the Physician. Ordering Provider: NATE CADENA IE Report Released Date/Time: Nov 23, 2022 12:00 PM Reporting Lab: [address] [address] Performing Lab: [address] [address] [place] URINALYS IS SPECIFIC GRAVITY OF URINE BY REFRACTOME TRY 1.018 1.016 - 1.022 02/10 Specimen Type: URINE Comment: If Glucose = >500 and Ketones are positive, please alert the Physician. Ordering Provider: NATE CADENA IE Report Released Date/Time: Nov 23, 2022 12:00 PM Reporting Lab: [address] [address] Performing Lab: [address] [address] [place] URINALYS IS PH OF URINE BY TEST STRIP 7.5 5.0 - 9.0 02/10 Specimen Type: URINE Comment: If Glucose = >500 and Ketones are positive, please alert the Physician. Ordering Provider: NATE CADENA IE Report Released Date/Time: Nov 23, 2022 12:00 PM Reporting Lab: [address] [address] Performing Lab: [address] [address] [place] URINALYS IS UROBILINOG EN [MASS/VOLU ME] IN URINE BY TEST STRIP <2.0mg/d L <2.0 - 2.0 02/10 Specimen Type: URINE Comment: If Glucose = >500 and Ketones are positive, please alert the Physician. Ordering Provider: NATE CADENA IE Report Released Date/Time: Nov 23, 2022 12:00 PM Reporting Lab: [facility] [address] [facility] [address] Performing Lab: [address] [address] [place] URINALYS IS LEUKOCYTE ESTERASE [PRESENCE] IN URINE BY TEST STRIP NEGATIVE 02/10 Specimen Type: URINE Comment: If Glucose = >500 and Ketones are positive, please alert the Physician. Ordering Provider: NATE CADENA IE Report Released Date/Time: Nov 23, 2022 12:00 PM Reporting Lab: [address] [address] Performing Lab: [address] [address] [place] BASIC METABOLI C PANEL (fasting ) UREA NITROGEN [MASS/VOLU ME] IN SERUM OR PLASMA 12 mg/dL 7 - 25 11/20 Specimen Type: SERUM No comment entered. Ordering Provider: NATE CADENA IE Report Released Date/Time: Nov 21, 2021 11:39 AM Reporting Lab: [address] [address] Performing Lab: [address] [address] [place] BASIC METABOLI C PANEL (fasting ) GLUCOSE [MASS/VOLU ME] IN SERUM OR PLASMA 93 mg/dL 65 - 100 11/20 Specimen Type: SERUM No comment entered. Ordering Provider: NATE CADENA IE Report Released Date/Time: Nov 21, 2021 11:39 AM Reporting Lab: [address] [address] Performing Lab: [address] [address] [place] BASIC METABOLI C PANEL (fasting ) SODIUM [MOLES/VOL UME] IN SERUM OR PLASMA 137 mmol/L 135 - 145 11/20 Specimen Type: SERUM No comment entered. Ordering Provider: NATE CADENA IE Report Released Date/Time: Nov 21, 2021 11:39 AM Reporting Lab: [facility]ITALRL WSTRN [facility]ITALUSETS [facility] [address] [facility] [address] Performing Lab: ID [facility] W[facility] [address] [facility] [address] [place] BASIC METABOLI C PANEL (fasting ) POTASSIUM [MOLES/VOL UME] IN SERUM OR PLASMA 4.4 mmol/L 3.5 - 5.0 11/20 Specimen Type: SERUM No comment entered. Ordering Provider: NATE CADENA IE Report Released Date/Time: Nov 21, 2021 11:39 AM Reporting Lab: [facility]ITALRL WSTRN [facility]ITAL[facility] [address] [address] Performing Lab: [facility] HOSPITALRL TRN [facility]ITALUSE[address] [address] [place] BASIC METABOLI C PANEL (fasting ) CHLORIDE [MOLES/VOL UME] IN SERUM OR PLASMA 104 mmol/L 100 - 110 11/20 Specimen Type: SERUM No comment entered. Ordering Provider: NATE CADENA IE Report Released Date/Time: Nov 21, 2021 11:39 AM Reporting Lab: [facility]ITALRL WSTRN [facility]ITALUSETS [address] [address] Performing Lab: [facility]OS[facility]ITALRL TRN [facility]ITALUSETS [address] [address] [place] BASIC METABOLI C PANEL (fasting ) CARBON DIOXIDE, TOTAL [MOLES/VOL UME] IN SERUM OR PLASMA 27 meq/L 20 - 30 11/20 Specimen Type: SERUM No comment entered. Ordering Provider: NATE CADENA IE Report Released Date/Time: Nov 21, 2021 11:39 AM Reporting Lab: [facility] [address] [address] Performing Lab: [facility]OS[facility]ITALRL WSTRN [facility]USE[address] [address] [place] BASIC METABOLI C PANEL (fasting ) CREATININE [MASS/VOLU ME] IN SERUM OR PLASMA 1.18 mg/dL 0.50 - 1.40 11/20 Specimen Type: SERUM No comment entered. Ordering Provider: NATE CADENA IE Report Released Date/Time: Nov 21, 2021 11:39 AM Reporting Lab: [facility]ITALRCULL[facility]ERN [address] [address] Performing Lab: [address] [address] [place] BASIC METABOLI C PANEL (fasting ) GLOMERULAR FILTRATION RATE/1.73 SQ M.PREDICTE D [VOLUME RATE/AREA] IN SERUM, PLASMA OR BLOOD BY CREATININE -BASED FORMULA (CKD-EPI) 80 mL/min 60 11/20 Specimen Type: SERUM No comment entered. Ordering Provider: NATE CADENA IE Report Released Date/Time: Nov 21, 2021 11:39 AM Reporting Lab: [address] [address] Performing Lab: [address] [address] [place] LIPID PANEL FASTING CHOLESTERO L [MASS/VOLU ME] IN SERUM OR PLASMA 169 mg/dL 7 - 199 11/20 Specimen Type: SERUM No comment entered. Ordering Provider: NATE CADENA IE Report Released Date/Time: Nov 21, 2021 11:39 AM Reporting Lab: [address] [address] Performing Lab: [address] [address] [place] LIPID PANEL FASTING TRIGLYCERI DE [MASS/VOLU ME] IN SERUM OR PLASMA 43 mg/dL 0 - 150 11/20 Specimen Type: SERUM No comment entered. Ordering Provider: NATE CADENA IE Report Released Date/Time: Nov 21, 2021 11:39 AM Reporting Lab: [facility]ITALRCULL[facility]ERN [address] [address] Performing Lab: [address] [address] [place] LIPID PANEL FASTING CHOLESTERO L IN LDL [MASS/VOLU ME] IN SERUM OR PLASMA BY CHRISTOPHER Marmolejo 99 mg/dL 0 - 129 11/20 Specimen Type: SERUM No comment entered. Ordering Provider: NATE CADENA IE Report Released Date/Time: Nov 21, 2021 11:39 AM Reporting Lab: [facility]ITALRCULL[facility]ENTERN [facility] [address] [facility] [address] Performing Lab: [facility]ITALRCULL[facility]ENTERN [facility] [address] [facility] [address] [facility] LIP[facility] PANEL FASTING CHOLESTERO L.TOTAL/CH OLESTEROL IN HDL [MASS RATIO] IN SERUM OR PLASMA 2.8 11/20 Specimen Type: SERUM No comment entered. Ordering Provider: NATE CADENA Report Released Date/Time: Nov 21, 2021 11:39 AM Reporting Lab: [facility] [address] [facility] [address] Performing Lab: [facility]ITALRCULL[facility]ENTERN [facility] [address] [facility] [address] [facility] LIPID PANEL FASTING CHOLESTERO L IN HDL [MASS/VOLU ME] IN SERUM OR PLASMA 61 mg/dL 40 - 60 11/20 H Specimen Type: SERUM No comment entered. Ordering Provider: NATE CADENA Report Released Date/Time: Nov 21, 2021 11:39 AM Reporting Lab: [facility] [address] [facility] [address] Performing Lab: [facility]ITALRCULL[facility]ENTERN [address] [address] [facility] Vital Signs Combined list of inpatient and outpatient Vital Signs from Department of Defense and Veterans Affairs, ranging from 12 months to all on record, depending upon the facility. Vital Sign Value Date Comments Source SYSTOLIC BLOOD PRESSURE 123 02/18/20 24 14:09:45 [facility]ITALRCULL[facility]ERN [facility] DIASTOLIC BLOOD PRESSURE 79 024 14:09:45 [facility]ITALRC[facility]ERN [facility] PULSE OXIMETRY 98 02/18/2024 14:09:45 [facility]ITALRC[facility]ERN [facility] WEIGHT 196.4 02/18/2024 14:09:45 [facility] [...] Date Status Disposition Source Theater Facility OUTPATIENT [id number] 07/30 Released w/o Limitations [facility] OUTPATIENT [id number] 10/23 Released w/o Limitations [facility] OUTPATIENT [id number] 02/02 Released with Work/Duty Limitations [facility] Facility OUTPATIENT [id number] 05/25 Released w/o Limitations Theater Fac[facility] y Theater Facility OUTPATIENT [id number] 05/26 Released w/o Limitations Theater Facilit y KARLA Houser([facility]) OUTPATIENT [id number] Loose bowels/ shaving profile DERIK DESAI S 06/05 Released w/o Limitations KARLA Houser([facility]) [facility] [place], [place]([employer]-[employer]) OUTPATIENT [id number] GAIL SHEA 12/10 Released w/o Limitations [facility] [place], [place](Hear papito Conserv ation-O ST) Theater Facility OUTPATIENT [id number] 06/23 Released w/o Limitations Theater Facilit y Theater Facility OUTPATIENT [id number] 08/17 Released w/o Limitations Theater Facilit y Theater Facility OUTPATIENT [id number] 09/19 Released w/o Limitations Theater Facilit y [employer] ation) OUTPATIENT [id number] TONY DOWNS 09/26 Released w/o Limitations [employer](F D [employer] Demobil ization ) [employer]([facility] Team B) OUTPATIENT [id number] Annual PHA NANCY MENDOZAYN 09/28 Released w/o Limitations [employer] [employer]([facility] Team [facility]) OUTPATIENT [id number] [employer] PHA. Pt will bring current paperwo rkNICHO GIRALDO 10/24 Released w/o Limitations [employer]([facility] Team B) [facility] Team B) TELE CONSULT [id number] Notes Entered by: CORI MERCHANT 07 Nov 2013 1342 ------- ------- ------- ------- -- labs MADELINE ENRIQUE 11/07 Referred for Appointment [employer]([facility] Team B) [facility] Team A) OUTPATIENT [id number] [employer] PHA 10-29-14 DENNIS CHAUDHARY 11/26 Released w/o Limitations [facility]([employer]metry [employer]) OUTPATIENT [id number] Notes Entered by: МАРИЯ SANDOVAL T 22 May 2018 0923 ------- ------- ------- ------- -- [employer] MEDPROS TAY SANDOVAL T 05/22 Released w/o Limitations [facility](O ptometr y [employer]) [facility] [place] [facility] Outpatient Encounter [id number] 09/24 [facility] [place] [place] [facility] [place] [facility] Outpatient Encounter [id number] 02/07 [facility] [place] [facility]P EST LOW 20 MIN [id number] Diagnos is: ICD-10- CM F43.10 Post-tr aumatic stress disorde r, unspeci fied
SNE BREWSTER 02/17 [place] Procedures Combined list of: 1) Procedures from Department of Veterans Affairs facilities going back up to thelast 18 months, not all ID non-surgical procedures are included; 2) All procedures from the Department of Defense facilities. Procedure Procedure Type Code Date Perfomer Comments Russ e Screening Test Of Visual Acuity, Quantitative, Bilateral Screening Test Of Visual Acuity, Quantitative, Bilateral 23697 5 GLENYS ORTIZ [facility] Screening Test Of Visual Acuity, Quantitative, Bilateral Screening Test Of Visual Acuity, Quantitative, Bilateral 38946 4 NICHO BALDERAS [facility] Screening Test Of Visual Acuity, Quantitative, Bilateral Screening Test Of Visual Acuity, Quantitative, Bilateral 37451 3 NANCY MENDOZA Uncorr OD:20/10 Uncorr OS:20/10 Uncorr OU:20/10 DoD Ear Protector Attenuation Measurements Ear Protector Attenuation Measurements [id number] 0 GAIL SHEA [facility] Patient education, not otherwise cla ified, non-physician provider, group, per se ion 0 GAIL SHEA [facility] TETANUS AND DIPHTHERIA TOXOIDS (TD) ADSORBED WHEN ADMINISTERED TO INDIVIDUALS 7 YEARS OR OLDER, FOR INTRAMUSCULAR USE 0 [facility] SCREENING TEST OF VISUAL ACUITY, QUANTITATIVE, BILATERAL 5 [facility] SCREENING TEST OF VISUAL ACUITY, QUANTITATIVE, BILATERAL 4 [facility] SCREENING TEST OF VISUAL ACUITY, QUANTITATIVE, BILATERAL 3 [facility] SKIN TEST; TUBERCULOSIS, INTRADERMAL 7 [facility] SCREENING TEST OF VISUAL ACUITY, QUANTITATIVE, BILATERAL 6 [facility] PHYS/OTH QUALIFIED HEALTH SOCIOLOGY PROFESSOR QUALIFIED,EDUCATION, TRAIN,LICENSURE/REGU LATION (WHEN APPLICABLE) EDUC SER RENDERED TO PATS IN A GRP SETTING (EG,,OBESITY ,OR DIABETIC INSTRUCT) 4 [facility] URINALYSIS, BY DIP STICK OR TABLET REAGENT FOR BILIRUBIN, GLUCOSE, HEMOGLOBIN, KETONES, LEUKOCYTES, NITRITE, PH, PROTEIN, SPEC GRAVITY, UROBILINOGEN, ANY NUMBER OF CONSTITUENTS; W/O MICRO, NON-AUTO 4 [facility] UNLISTED VACCINE/TOXOID 3 [facility] AUDIOMETRIC TESTING OF GROUPS 3 [facility] IMMUNIZATION ADMINISTRATION (INCLUDES PERCUTANEOUS, INTRADERMAL, SUBCUTANEOUS, OR INTRAMUSCULAR INJECTIONS); EACH ADDITIONAL VACCINE (SINGLE OR COMBINATION VACCINE/TOXOID) 3 [facility] TYPHOID VACCINE, CAPSULAR POLYSACCHARIDE (VICPS), FOR INTRAMUSCULAR USE 3 [facility] PATIENT EDUCATION, NOT OTHERWISE CLASSIFIED, NON-PHYSICIAN PROVIDER, GROUP, PER SESSION 0 [facility] COLLECTION OF VENOUS BLOOD BY VENIPUNCTURE 0 [facility] Social History Combined list of available smoking, tobacco, and other social history from Department of Defense and Veterans Affairs facilities. Social History Type Response Date Comment Sourc e Tobacco smoking status NHIS ID-TOBACCO NEVER USED 02/18/2024 [facility] D History of tobacco use ID-TOBACCO NEVER USED 11/23/2022 [facility] [place] [facility] History of tobacco use ID-TOBACCO NEVER USED 11/21/2021 [facility] [place] [facility] History of tobacco use LIFETIME NON-TOBACCO USER 02/28/2011 [facility] History of tobacco use V1-PT DECLINES TOBACCO CESSATION MEDS 08/07/2008 [facility] History of tobacco use QUIT TOBACCO USE IN PAST YEAR 2007 [place] This section is an empty social history section. [facility] Plan of Care List of future care activities from Department of Veterans Affairs facilities. Additional future care activities may be listed in the Assessment and Plan section. Date/Time Care Activity Care Activity Detail Facili ty 02/16/2025 AMBULATORY - MEDICINE AMBULATORY - MEDICI NE [facility] [place] [facility]
== END 2024-11-04 15:02 | disposition home or self-care (01) ==
PROVIDERS: PCP Family Medicine; Visit Provider Dietitian, Registered
DX: E78.9 Disorder of lipoprotein metabolism, unspecified (principal)

== ENCOUNTER → 2024-11-04 14:02 | Outpatient (BNVA) | payer OTHER, SELFPAY | PROVIDERS: PCP Family Medicine; Visit Provider Dietitian, Registered | DX: E78.9 Disorder of lipoprotein metabolism, unspecified (principal); Z71.3 Dietary counseling and surveillance | CPT/HCPCS: 97803 ==

== ENCOUNTER 2025-04-13 11:33 | Outpatient (AMB) | payer OTHER, SELFPAY ==
--- OUTSIDE RECORDS SUMMARY | 2025-03-03 07:00 | XMS_ITS | Encounter Summary ---
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 Date/Time Encounter Type Encounter Description Reason Provider Source March 03, 2025 11:00 AM PSYTX W PT 45 MINUTES PCMHI INDIV ICD-10-CM F43.10 Post-traumatic stress disorder, unspecified KURTISANABELLA Stark [facility] Encounter Template Text not used by [place] Assessments - Encounter Diagnoses This section includes the primary and secondary diagnoses documented for the Encounter. Date/Time Primary/Secondary Diagnosis Diagnosis Name Provider Source March 04, 2025 10:29 AM PRIMARY Post-traumatic stress disorder, unspecified ANABELLA HULL [place] Plan of Treatment: Future Appointments (+ 6 months) and Future Tests (+/- 45 days) The Plan of Treatment section includes future care activities for the [facility] This section includes future appointments and future orders which are active, pending or scheduled. Future Appointments This section includes appointments that were scheduled to occur 6 months from the date of the Encounter, up to a maximum of 20 appointments. The data comes from all [place] treatment facilities. Appointment Date/Time Appointment Type Appointme nt Facility Name Mar 18, 2025 01:00 PM AMBULATORY - PSYCHIATRY [facility] Apr 01, 2025 01:00 PM AMBULATORY - PSYCHIATRY [facility] May 13, 2025 01:00 PM AMBULATORY PSYCHIATRY [facility] Lab Results: +/- 30 days of the encounter This section includes the Chemistry and Hematology Lab Results on record with [place] for the patient. Radiology Reports and Pathology Reports are provided separately, in subsequent sections. Lab Results This section contains the Chemistry/Hematology Results that were resulted 30 days before or 30 daysafter the date of the Encounter. Date/Time Source Result Type Result - Unit Interpretation Reference Range Specimen Type Comment February 17, 2025 08:18 AM [facility] LIPID PANEL FASTING SERUM Specimen Type: SERUM No comment entered. Ordering Provider: KIEL BREWSTER Report Released Date/Time: February 18, 2024 03:07 PM Reporting Lab: [facility] [address] [address] Performing Lab: [address] [address] CHOLESTEROL 180 mg/dL TRIGLYCERIDE 62 mg/dL 0-150 LDL calculated 110 mg/dL 0-129 CHOL/HDL 3.1 HDL CHOLESTEROL 58 mg/dL >40 February 17, 2025 08:18 AM [facility] LIVER FUNCTION SERUM Specimen Type: SERUM No comment entered. Ordering Provider: KIEL BREWSTER Report Released Date/Time: February 18, 2024 03:07 PM Reporting Lab: [facility] [address] [facility] [address] Performing Lab: [address] [address] PROTEIN,TOTAL 7.4 g/dL 6.4-8.3 ALBUMIN 4.1 g/dL 3.5-5.2 ALKALINE PHOSPHATASE 53 U/L 40-150 AST 43 U/L H 5-34 ALT 28 U/L 0-55 BILIRUBIN, TOTAL 0.5 mg/dL 0.2-1.2 February 17, 2025 08:18 AM [facility] TSH SERUM Specimen Type: SERUM No comment entered. Ordering Provider: KIEL BREWSTER Report Released Date/Time: February 18, 2024 03:07 PM Reporting Lab: [address] [address] Performing Lab: [address] [address] TSH 1.23 u[IU]/mL 0.35-4.94 February 17, 2025 08:18 AM [facility] BASIC METABOLIC PANEL (fasting) SERUM Specime n Type: SERUM No comment entered. Ordering Provider: KIEL BREWSTER Report Released Date/Time: February 18, 2024 03:07 PM Reporting Lab: [facility] [address] [facility] [address] Performing Lab: [address] [address] UREA NITROGEN 14 mg/dL 9-21 GLUCOSE 92 mg/dL 65-100 SODIUM 138 mmol/L 136-145 POTASSIUM 4.3 mmol/L 3.5-5.1 CHLORIDE 103 mmol/L 98-107 CO2 27 meq/L 22-29 CALCIUM 9.2 mg/dL 8.4-10.2 CREATININE, Serum 1.27 mg/dL H 0.72-1.25 eGFR(CKD-EPI 2020) 72 mL/min >60 February 17, 2025 08:18 AM [facility] HEMOGLOBIN A1C PANEL BLOOD Specimen Type: BLO OD Comment: Values obtained from A1C measurements can vary. For atypical A1C assays, a reported value of 7.0 could actually be between 6.72 and 7.28 if measured by a reference method. A reported value of 9.0 could actually be between 8.73 and 9.27. Ref: http://www.ngsp.org/CAPdata.asp Ordering Provider: KIEL BREWSTER Report Released Date/Time: February 18, 2024 03:07 PM Reporting Lab: [address] [address] Performing Lab: [address] [address] HEMOGLOBIN A1C 5.2 4.0-5.6 February 17, 2025 08:18 AM [facility] CBC AND DIFF (AUTO) BLOOD Specimen Type: BLOO D No comment entered. Ordering Provider: KIEL BREWSTER Report Released Date/Time: February 18, 2024 03:07 PM Reporting Lab: [facility] [address] [address] Performing Lab: [address] [address] WBC 3.78 10*3/uL L 4.50-11.00 RBC 4.58 10*6/uL 4.23-5.66 HGB 14.1 g/dL 12.8-17 HCT 40.6 39.2-50.4 MCV 88.6 fL 82-99 MCHC 34.7 g/dL 30.8-35.1 PLT 223 10*3/uL 140-360 MPV 10.6 fL 9.2-12.4 RDW-CV 12.5 12.0-16.0 MONO, ABS 0.28 10*3/uL L 0.30-1.10 MCH 30.8 pg 26.2-32.6 NEUT % 35.5 L 43.7-75.8 LYMPH % 47.6 H 14.0-42.3 MONO % 7.4 5.1-13.7 EOS % 8.2 H 0.4-6.8 BASO % 1.3 0.1-2.0 NEUT, ABS 1.34 10*3/uL L 2.20-7.60 LYMPH, ABS 1.80 10*3/uL 1.00-3.20 EOS, ABS 0.31 10*3/uL 0.03-0.44 BASO, ABS 0.05 10*3/uL 0.01-0.13 IMMATURE GRAN % 0.0 0.0-0.7 IMMATURE GRAN, ABS 0.00 10*3/uL 0.00-0.0 6 NRBC % 0.0 0.0-0.0 NRBC, ABS 0.00 10*3/uL 0.00-0.00 Social History: Smoking Status (Most current) and Tobacco Use (All prior to encounter date) This section includes the most current, and the historical, smoking and tobacco- related health factors from the [place] facility where the Encounter took place. Current Smoking Status This section includes the most current smoking, or tobacco-related health factor, from the [place] facility where the Encounter took place. Date/Time Current Smoking Status Comment Facil ity February 18, 2024 02:00 PM VA-TOBACCO NEVER USED [facility] Tobacco Use History This section includes a history of the smoking, or tobacco-related health factors, that were collected on or before the date of the Encounter. The data comes from the [place] facility where the Encounter took place. Date/Time Smoking Status/Tobacco Use Comment F acility February 28, 2011 02:20 PM LIFETIME NON-TOBACCO USER [facility] Aug 07, 2008 09:03 AM V1-PT DECLINES REF TO TOBACCO CE SS PRGM [place] Aug 07, 2008 09:03 AM V1-PT DECLINES TOBACCO CESSATION MEDS [facility] Aug 07, 2008 09:03 AM V1-PT READY TO QUIT TOBACCO USE [facility] 2007 10:10 AM QUIT TOBACCO USE IN PAST YEAR [facility] Encounter Notes: All associated encounter notes This section contains the clinical notes associated to the Encounter. Date/Time Encounter Note(s) Provider Source March 03, 2025 11:05 AM MENTAL HEALTH DIAG NOSTIC STUDY NOTE: LOCAL TITLE: MENTAL HEALTH DIAGNOSTIC STUDY STANDARD TITLE: MENTAL HEALTH DIAGNOSTIC STUDY NOTE DATE OF NOTE: MARCH 03, 2025@11:05 ENTRY DATE: MARCH 04, 2025@10:23:07 AUTHOR: ANABELLA HULL COSIGNER: URGENCY: STATUS: COMPLETED These assessments were completed by HÉCTOR BA via provider direct entry on 03/03/2025 11:00:34 AM. PATIENT HEALTH QUESTIONNAIRE-9 (PHQ-9) The patient reported some symptoms of depression; symptoms are not consistent with a major depressive episode. Patient reported being bothered by the following over the last 2 weeks: 1. Little interest or pleasure: Several Days 2. Feeling down, depressed or hopeless: Several Days 3. Trouble sleeping: More than half the days 4. Tired, low energy: More than half the days 5. Poor appetite, over-eating: Several Days 6. Feelings of failure, guilt: More than half the days 7. Trouble concentrating: More than half the days 8. Motor retardation, agitation: Several Days 9. Thoughts better off /hurting self: Not at all PHQ-9 total score = 12 1-4 = minimal symptoms 5-9= mild symptoms 10-14= moderate symptoms 15-19= moderately severe symptoms 20-27= severe depressive symptoms The patient stated that the depressive symptoms made it somewhat difficult to work, take care of things at home, or get along with others. GENERAL ANXIETY DISORDER-7 (JOSE-7) Patient reported being bothered by the following over the last two weeks: 1. Feeling nervous, anxious or on edge: More than half the days 2. Not being able to stop or control worrying: More than half the days 3. Worrying too much about different things: More than half the days 4. Trouble relaxing: More than half the days 5. Feeling restless (hard to sit still): More than half the days 6. Becoming easily annoyed or irritable: Several days 7. Afraid as if something awful might happen: More than half the days JOSE-7 total score = 13 0-4=minimal symptoms 5-9=mild symptoms 10-14=moderate symptoms 15-21=severe symptoms The patient stated that the anxiety symptoms made it somewhat difficult to work, take care of things at home, or get along with others. /anmol/ ANABELLA HULL PSYD CLINICAL PSYCHOLOGIST Signed: 03/04/2025 10:31 ANABELLA HULL [place] March 03, 2025 11:00 AM MENTAL HEALTH CONS ULT: [facility] TITLE: -MH INTEGRATION/CONSULT REPORT STANDARD TITLE: MENTAL HEALTH CONSULT DATE OF NOTE: MARCH 03, 2025@11:00 ENTRY DATE: MARCH 03, 2025@11:00:48 AUTHOR: ANABELLA HULL EXP COSIGNER: URGENCY: STATUS: COMPLETED VISIT DURATION: 50 min VISIT TYPE: Individual REFERRED BY: PACT REFERRAL TYPE: Scheduled Consult Visit DIAGNOSIS: Post-traumatic Stress Disorder (PTSD) REASON FOR REFERRAL / CHIEF COMPLAINT: Depression / Work () stress [facility] Psychologist's role was explained to the [place]. Informed consent and limits of confidentiality were reviewed. SCREENING: PHQ-9, 12, MODERATE symptoms of Depression JOSE-7, 13, MODERATE symptoms of Anxiety SESSION FOCUS: Initial Assessment of Presenting Symptoms and Concerns VET'S STATEMENT OF GOAL AND CONCERNS: I am the person that others come to . The [place] states it has been brought to his attention that much of his energy is focused outwards on work and community efforts and that he may be neglecting himself and his marriage. He states he cares too much what people think - sought validation everywhere growing up without a father . PTSD sx: There are times when it comes back . Anxiety: From his marriage. She does not understand . He states that she feels he loses himself at work. He is still learning the job - had to learn it on his own. He communicates with friends. Trying to embrace all he has and not get caught up in the rat race. Tries to have gratitude. Now has things he once wished for. Trying to acknowledge how he is really feeling. Coping: Was drinking more than he wanted to. Put up a facade . Loves playing golf. Working out. PAST BEHAVIORAL HEALTH TREATMENT: Dx PTSD, no treatment FUNCTIONAL ASSESSMENT: o CLOSE RELATIONSHIPS: , on the cusp of divorce . Recently had an important discussion about the future of the marriage. Working on things. Step- son (16yo). o ETOH: Yes, was drinking 3-4x/wk, 4-pack of wine. Now weekends or 1-2 [address] course. More aware now . o TOBACCO: Denies o NON-PRESCRIPTION DRUGS: Denies o HEALTH AND MEDICAL CONCERNS: Heartburn - on prilosec. Urinates multiple times per night. Hydrates a lot. o MOOD: Anxious, depressed o APPETITE: Getting better. More intentional. o SLEEP: Mind is always going. Has to take OTC meds to sleep. Like Unisom. Comes with fog/fatigue next morning. Wakes during the night. NM - yes, but does not remember them. Active dreams nightly, wakes up sweating frequently. Moving in sleep. No snoring. o PAIN (0-10) Low back pain - typ. 3-4/10. Knee injury from [place]. o PHYSICAL ACTIVITY: Works out. o RECREATION: Enjoys golf o WORK: [employer] position at [place]. 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 Was at [facility] during COVID. o : 24yrs in [employer], Active 17yrs. 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 Advised about treatment options Elicited [place]'s goals for change: - Have an outlet -Be honest with self and be okay with the person he is. -Align with the self he projects into the world. Will consider: Who would you be if no one was looking? DIAGNOSTIC IMPRESSIONS/PLAN: The [place] is a 44-year-old man of [place] decent referred by his PCP to [facility] Psychologist for depression and stress. Based on initial assessment, he is coping with moderate symptoms of depression and anxiety with moderate impact on psychosocial functioning. Plan to provide brief treatment in [facility] to address the 's goals stated above. he is agreeable to plan. No immediate risk concerns. LETHALITY Suicidal or homicidal ideation: No Suicidal or homicidal plans: No Suicidal or homicidal intention: No RISK LEVEL IMPRESSION: presents at low risk of harm to self or others at this time. INTERDICIPLINARY TREATMENT PLANNING INVOLVING: PACT FOLLOW-UP: Return to [facility] in 2 weeks, f2f PCP PROVIDED WITH FEEDBACK: View David /anmol/ ANABELLA HULL PSYD CLINICAL PSYCHOLOGIST Signed: 03/11/2025 16:25 ANABELLA HULL
[2025-04-13 11:42] VITALS: BMI 27.0
--- NOTE | 2025-04-13 11:42 | MHC.AMNUTRGE ---
VS Expanded 04/13/25 11:42 Height 5 ft 10 in Weight 188 lb 2.2 oz BMI 27.0 Intake Visit Reasons: High cholesterol Allergies aspirin Allergy (Mild, Verified 08/25/24 08:17) Swelling shellfish Allergy (Mild, Uncoded 09/24/23 12:34) Swelling Nutrition Presentation Details: Pt presents for MNT f/u for high cholesterol and elevated LFTs Pt reports working diet modifications :choosing lower fat food options, lean protein and reducing sugars. Physical activity lessened in the past couple of weeks and noticing increased wt BS Monitoring Most Recent Diabetes Results: Microalb/Creat Ratio TNP 08/20/24 Cholesterol, (<200) 195 mg/dL 08/20/24 HDL Cholesterol, (>40) 58 mg/dL 08/20/24 Triglycerides, (<150) 71 mg/dL 08/20/24 Creatinine, (0.5-1.4) 1.26 mg/dL 08/20/24 BUN, (9-16) 16 mg/dL 08/20/24 Sodium, (135-145) 137 mmol/L 08/20/24 Potassium, (3.3-5.1) 4.2 mmol/L 08/20/24 Chloride, (96-108) 104 mmol/L 08/20/24 Carbon Dioxide, (22-29) 27 mmol/L 08/20/24 Calcium, (8.4-10.2) 9.6 mg/dL 08/20/24 AST, (5-37) 52 U/L H 08/20/24 ALT, (0-40) 31 U/L 08/20/24 Total Protein, (6.5-8.0) 7.6 g/dL 08/20/24 Albumin, (3.5-5.0) 4.0 g/dL 08/20/24 [facility] Social History Housing: House Patient Tobacco Use Status: Never used Tobacco e-Cigarette/Vaping Use: Never Used Second Hand Smoke Exposure: No service: Yes Current occupational status: employed Current occupation: [employer] Cognitive needs: No Hearing needs: No Vision needs: No Assessment & Plan Assessment & Plan (1) Borderline high cholesterol: Code(s): E78.9 - Disorder of lipoprotein metabolism, unspecified Category: Medical Plan: Wt: 90 Kg ( 09/30 ), 85kg (10/2024) Est kcal needs as per MSJ: 2200 + 500/1000 depending on physical activity) (40% carb, 30% protein/fat) Est fluid needs as per 25-30 ml/d: 2700 Est prot per day as per 1 g/kg bw: 90 Recommend fiber intake : 8-10 g per day and gradually increase to 25-28 g per day for women and 35-38 g for men or as tolerated Recommend sodium intake per day : less than 2300 mg Educated patient on: ( R = reviewed V = verbalizes understanding N/R = needs review N/A = not applicable Food sources of carbohydrate, adequate serving sizes and its role in various health conditions: R Differences between complex carbohydrates a simple carbohydrates, role of fiber in diet: R Lean protein sources of foods: R Differences between types of fats and role in diet (mono on saturated fat fatty acids, saturated fatty acids, trans fats): R Food sources of sodium in salt and healthy modifications for heart health in kidney health: R V R/V Vitamins and minerals: R Healthy plate method concept: R Physical activity: Benefits a precaution: R Patient Instructions: Resume physical activity goal 60 min 3-4 x/wk Continue working on choosing lean protein foods (less saturated fats) Include MUFA: milled flaxseed 1 tsp/d and increase to 3 tsp/day Increase water as you increase fiber in the diet to prevent constipation Coding Level of Care Code Nutr Indiv Subseq (52869) Diagnoses Borderline high cholesterol E78.9 Time Spent (min) 30
== END 2025-04-13 12:40 | disposition home or self-care (01) ==
LOC: HO.ENCR 11:34
PROVIDERS: PCP Family Medicine; Visit Provider Dietitian, Registered
DX: E78.9 Disorder of lipoprotein metabolism, unspecified (principal)

== ENCOUNTER → 2025-04-13 11:33 | Outpatient (BNVA) | payer OTHER, SELFPAY | PROVIDERS: PCP Family Medicine; Visit Provider Dietitian, Registered | DX: E78.9 Disorder of lipoprotein metabolism, unspecified (principal) | CPT/HCPCS: 97803 ==

== ENCOUNTER 2025-07-14 13:52 | Outpatient (AMB) | payer OTHER, SELFPAY ==
--- NOTE | 2025-07-14 14:08 | A.OFFVIS_ITS ---
VS Expanded 07/14/25 14:09 Height 5 ft 4 in Weight 185 lb 4 oz BMI 31.8 Intake Visit Reasons: berderline high chol Allergies aspirin Allergy (Mild, Verified 08/25/24 08:17) Swelling shellfish Allergy (Mild, Uncoded 09/24/23 12:34) Swelling Nutrition Presentation Details: Pt presents for MNT f/u for borderline high chol Pt reports keeping physically active. 1-2 hr 4-6x/wk working on reducing total fat and sat'd fats , reading food labels and overall choosing healthier food options food frequency fruit: 2-3/d veg: daily 2-3 serving/d dairy: choosing low fat and also varying with low sat'd fat dairy alternatives starches: choosing whole grain omega 3s: choosing nuts/seeds 3-5 x/wk eating out: reports choosing whole grain, reducing on fried foods beverages:water, low sugar beverags > 70 oz/d BS Monitoring Most Recent Diabetes Results: Microalb/Creat Ratio TNP 08/20/24 Cholesterol, (<200) 195 mg/dL 08/20/24 HDL Cholesterol, (>40) 58 mg/dL 08/20/24 Triglycerides, (<150) 71 mg/dL 08/20/24 Creatinine, (0.5-1.4) 1.26 mg/dL 08/20/24 BUN, (9-16) 16 mg/dL 08/20/24 Sodium, (135-145) 137 mmol/L 08/20/24 Potassium, (3.3-5.1) 4.2 mmol/L 08/20/24 Chloride, (96-108) 104 mmol/L 08/20/24 Carbon Dioxide, (22-29) 27 mmol/L 08/20/24 Calcium, (8.4-10.2) 9.6 mg/dL 08/20/24 AST, (5-37) 52 U/L H 08/20/24 ALT, (0-40) 31 U/L 08/20/24 Total Protein, (6.5-8.0) 7.6 g/dL 08/20/24 Albumin, (3.5-5.0) 4.0 g/dL 08/20/24 [facility] Social History Housing: House Patient Tobacco Use Status: Never used Tobacco e-Cigarette/Vaping Use: Never Used Second Hand Smoke Exposure: No service: Yes Current occupational status: employed Current occupation: [employer] Cognitive needs: No Hearing needs: No Vision needs: No Assessment & Plan Assessment & Plan (1) Borderline high cholesterol: Code(s): E78.9 - Disorder of lipoprotein metabolism, unspecified Category: Medical Plan: Wt: 90 Kg ( 09/30 ), 85kg (10/2024), 84 kg(08/01) Est kcal needs as per MSJ: 2200 + 500/1000 depending on physical activity) (40% carb, 30% protein/fat) saturated fat (10% from total calories ) 30 g of saturated fat per day or less according to 2700 calories/d Est fluid needs as per 25-30 ml/d: 2700 Est prot per day as per 1 g/kg bw: 90 Recommend fiber intake : 8-10 g per day and gradually increase to 25-28 g per day for women and 35-38 g for men or as tolerated Recommend sodium intake per day : less than 2300 mg Educated patient on: ( R = reviewed V = verbalizes understanding N/R = needs review N/A = not applicable * Food sources of carbohydrate, adequate serving sizes and its role in various health conditions: R * Differences between complex carbohydrates a simple carbohydrates, role of fiber in diet: R ,V * Lean protein sources of foods: R * Differences between types of fats and role in diet (mono on saturated fat fatty acids, saturated fatty acids, trans fats): R * Food sources of sodium in salt and healthy modifications for heart health in kidney health: R * Vitamins and minerals: R * Healthy plate method concept: R , V * Physical activity: Benefits a precaution: R , V Patient Instructions: Continue working on reducing saturated fats and (highly processed foods, fried foods) Read foods labels working on reducing on sat'd fats continue working on following healthy plate method keep hydrated Coding Level of Care Code Nutr Indiv Subseq (55412) Diagnoses Borderline high cholesterol E78.9 Time Spent (min) 30
[2025-07-14 14:09] VITALS: BMI 31.8
== END 2025-07-14 14:46 | disposition home or self-care (01) ==
LOC: HO.ENCR 13:52
PROVIDERS: PCP Family Medicine; Visit Provider Dietitian, Registered
DX: E78.9 Disorder of lipoprotein metabolism, unspecified (principal)

== ENCOUNTER → 2025-07-14 13:52 | Outpatient (BNVA) | payer OTHER, SELFPAY | PROVIDERS: PCP Family Medicine; Visit Provider Dietitian, Registered | DX: E78.9 Disorder of lipoprotein metabolism, unspecified (principal); Z71.3 Dietary counseling and surveillance | CPT/HCPCS: 97803 ==

== ENCOUNTER 2025-08-24 08:33 | Outpatient (REF) | payer OTHER, SELFPAY ==
[2025-08-24 12:26] LABS: Microalbum/Creatinine Ratio Ur 5.7 ug/mg cr (<30)
[2025-08-24 12:50] LABS: Alanine Aminotransferase 21 U/L (0-40); Albumin Level 4.2 g/dL (3.5-5.0); Alkaline Phosphatase 54 U/L (39-117); Anion Gap 9 (12-20); Aspartate Amino Transferase 31 U/L (5-37); Blood Urea Nitrogen 17 mg/dL (9-16); Calcium 9.3 mg/dL (8.4-10.2); Carbon Dioxide 29 mmol/L (22-29); Chloride 105 mmol/L (96-108); Cholesterol 175 mg/dL (<200); Estimated Glomerular Filt Rate > 60; HDL Cholesterol 58 mg/dL (>40); Potassium 4.3 mmol/L (3.3-5.1); Sodium 139 mmol/L (135-145); Total Protein 7.4 g/dL (6.5-8.0); Triglycerides 48 mg/dL (<150)
[2025-08-27 23:08] LABS: PSA, Ultra Sensitive 0.48 ng/mL
== END 2025-08-24 08:34 | disposition home or self-care (01) ==
LOC: HO.WFDLDS 08:33
PROVIDERS: Visit Provider Nurse Practitioner Family
DX: Z00.00 Encounter for general adult medical examination without abnormal findings (principal); E78.9 Disorder of lipoprotein metabolism, unspecified; R79.89 Other specified abnormal findings of blood chemistry; Z12.5 Encounter for screening for malignant neoplasm of prostate; Z13.29 Encounter for screening for other suspected endocrine disorder
CPT/HCPCS: 36415; 80053; 80061; 82043; 82570; 83036; 84153; 84443

== ENCOUNTER 2025-08-27 08:59 | Outpatient (AMB) | payer OTHER, SELFPAY ==
--- NOTE | 2025-08-27 09:04 | A.OFFPC_ITS ---
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 Labs drawn 08/24/25. Reviewed labs with pt. A1c 5.5%. Triglycerides 48. TC 175. LDL 108. HDL 58. Reports some urinary frequency at night. Light volume. Denies any dysuria. [facility] Social History Housing: House Patient Tobacco Use Status: Never used Tobacco e-Cigarette/Vaping Use: Never Used Second Hand Smoke Exposure: No service: Yes Current occupational status: employed Current occupation: [employer] Cognitive needs: No Hearing needs: No Vision needs: No Questionnaire PHQ-9 Over the last 2 weeks, how often have you been bothered by any of the following problems? 1. Little interest or pleasure in doing things: not at all 2. Feeling down, depressed, or hopeless: not at all 3. Trouble falling or staying asleep, or sleeping too much: not at all 4. Feeling tired or having little energy: not at all 5. Poor appetite or overeating: not at all 6. Feeling bad about yourself - or that you are a failure or have let yourself or your family down: not at all 7. Trouble concentrating on things, such as reading the newspaper or watching television: not at all 8. Moving or speaking so slowly that other people could have noticed. Or the opposite - being so fidgety or restless that you have been moving around a lot more than usual: not at all 9. Thoughts that you would be better off or of hurting yourself in some way: not at all Total score: 0 Depression Screening Interpretation: Negative Depression Screening Done: Yes 03621 - PHQ-9 Billing: Yes Source: Developed by Drs. Alex Davenport, Linsey Gil, Jean Carlos Adams and colleagues, with an educational ketan from [employer]. Thrive Questionnaire Date Thrive assessed: 08/27/25 I am a: Patient What is your living situation today?: I have a steady place to live Within the past 12 months, did the food you bought not last and you didn't have the money to get more?: Never true Within the past 12 months, did you worry whether your food would run out before you got money to buy more?: Never true Do you have trouble paying for medicines?: No Do you have trouble getting transportation to medical appointments?: No Do you have trouble paying your heating and electricity bill?: No Do you have trouble taking care of your child, family member or friend?: No Do you have trouble with day-to-day activities such as bathing, preparing meals, shopping, managing finances, etc.?: No Are you currently unemployed and looking for a job?: No Are you interested in more education?: No Please select the resources that you would like help with: None Currently or been in a relationship where the following occur: No concerns reported THRIVE Score: 0 AUDIT C Alcohol Use Questionnaire (AUDIT-C) 1. How often do you have a drink containing alcohol?: Monthly or less 2. How many drinks containing alcohol do you have on a typical day when you are drinking?: 1 or 2 3. How often do you have six or more drinks on one occasion?: Never Total Score: 1 Score Reviewed/Action Taken: Yes JOSE-7 AMB Questionnaire JOSE-7 Date JOSE - 7 assessed: 08/27/25 Feeling nervous, anxious, or on edge: 0 = Not at all Not being able to stop or control worryin = Not at all Worrying too much about different things: 0 = Not at all Trouble relaxin = Not at all Being so restless that it is hard to sit still: 0 = Not at all Becoming easily annoyed or irritable: 0 = Not at all Feeling afraid as if something awful might happen: 0 = Not at all Total JOSE-7 score (0-4 normal; 5-9 mild; 10-14 moderate; 15-21 severe): 0 Source: Developed by Drs. Alex Davenport, Linsey Gil, Jean Carlos Adams and colleagues, with an educational ketan from [employer]. JOSE-7 Assessment Billing JOSE-7 Assessment Tool: JOSE-7 Assessment 01631 ACT Questionnaire In the past 4 weeks, how much of the time did your asthma keep you from getting as much done at work, school or at home?: None of the time During the past 4 weeks, how often have you had shortness of breath?: Not at all During the past 4 weeks, how often did your asthma symptoms wake you up at night or earlier than usual in the morning?: Not at all During the past 4 weeks, how often have you had to use your rescue inhaler or nebulizer medication?: Not at all How would you rate your asthma control during the past 4 weeks?: Completely controlled ACT Interpretation: Negative Score: 25 Review of Systems Const Denies chills, Denies fatigue, Denies fever(s), Denies headache(s) and Denies weakness Eyes Denies change in vision ENT Denies dizziness, Denies headache(s), Denies hearing loss, Denies nasal congestion, Denies sinus pain, Denies sinus pressure and Denies sore throat Card Denies chest pain, Denies lightheadedness, Denies dyspnea and Denies other (palpitations) Resp Denies cough, Denies dyspnea and Denies wheezing GI Denies abdominal pain, Denies melena, Denies hematochezia, Denies change in bowel habits, Denies dyspepsia and Denies nausea Denies hematuria and Denies dysuria Musc Denies abnormal gait, Denies myalgias, Denies arthralgias, Denies numbness and Denies tingling Skin/Breast Denies rash, Denies unusual bruising and Denies wounds Neuro Denies abnormal gait, Denies dizziness, Denies headache(s), Denies memory loss, Denies numbness, Denies Sensory deficit (Neuro), Denies tingling and Denies weakness Psych Denies anxiety, Denies depression and Denies memory loss Endo Denies cold intolerance, Denies fatigue, Denies heat intolerance, Denies polydipsia and Denies polyuria Lang/Lymph Denies easy bleeding and Denies easy bruising Aller/Immun Denies wheezing Physical exam (Primary Care) Vital Signs: Last Vital Signs Temp 98.2 F 08/27/25 09:07 Pulse 73 08/27/25 09:07 Resp 14 08/27/25 09:07 BP 110/60 08/27/25 09:07 Pulse Ox 99 08/27/25 09:07 Oxygen Delivery Method Room Air 08/27/25 09:07 BMI result Body Mass Index 28.1 Tobacco/Smoking Status: Tobacco use Status Tobacco use date assessed 08/27/25 08/27/25 09:11 Patient Tobacco Use Status Never used Tobacco 08/27/25 09:11 e-Cigarette/Vaping Use Never Used 08/27/25 09:11 PHQ-9: PHQ-9 Score PHQ-9: Total score 0 08/27/25 09:11 Depression Screening Interpretation: Negative Thrive Assessment: Date of Thrive Assessment Date Thrive assessed 08/27/25 08/27/25 09:11 Currently or been in a relationship where the following occur: No concerns reported Const General: no acute distress, well developed, alert and awake Nutritional Appearance: well nourished Orientation/consciousness: patient oriented x3 HENMT Head: Yes normocephalic and Yes atraumatic Ears: hearing grossly normal bilaterally and TM's normal bilaterally General nose exam: Normal external nose present and Normal nares present Mouth: Normal oral and palatal mucosa present and moist mucous membranes Teeth and gingiva: dentition normal Throat: Yes posterior oropharynx normal Eyes General: appearance normal, both eyes and all related structures Pupils: Equal, round and reactive pupils present and Pupil accommodation reflex normal EOM: EOMs intact bilaterally Neck Neck: Yes normal visual inspection, Yes no lymphadenopathy and Yes trachea midline Thyroid: Thyroid normal Carotids: no bruits Lymphatic: no lymphadenopathy noted Chest Chest palpation & inspection: normal inspection of the chest Resp Effort & Inspection: normal respiratory effort Auscultation: clear to auscultation bilaterally Cardio Rate: regular rate Rhythm: regular rhythm Heart sounds: S1 normal heart sound present, S2 normal heart sound present, no gallops, no murmurs and no rubs Bruits: no abdominal aortic bruits and no carotid bruits GI Palpation (GI): No Abdominal aortic bruit present, Soft to palpation, nontender, No hepatosplenomegaly present and No Rebound tenderness present Auscultation: normal bowel sounds General: Yes no CVA tenderness Back/Spine/Pelvis Back: no CVA tenderness Cervical Spine: cervical ROM normal and No Cervical spine tenderness Thoracic/Lumbar Spine: thoraco-lumbar ROM normal, No pain with thoraco-lumbar ROM, No thoracic spinal tenderness and No lumbar spinal tenderness Skin Lesions: no lesions Rashes: no rashes Trauma: no lacerations or abrasions Wounds: no wounds Nails: normal Neuro General: patient oriented x3 Cranial nerves: Yes Equal, round and reactive pupils present Cognition (Neuro): normal cognition Gait exam (Neuro): Normal gait present Motor exam (neuro): 5/5 motor strength present throughout Sensory Exam: No Sensory deficit (Neuro) Deep tendon reflexes (DTR's): Right patellar reflex intensity grade: 2+ and Left patellar reflex intensity grade: 2+ Extrem General: Yes normal to inspection and No edema Psych Appearance: grossly normal Affect: normal affect Attitude: cooperative Thought process: Normal thought process present Coding Level of Care Code Est Pt Level 3 (87448) Est Pt Prev Care 40-64y(83963) Diagnoses Adult general medical exam Z00.00 Borderline high cholesterol E78.9 Urinary frequency R35.0 Screening for prostate cancer Z12.5 Incomplete emptying of bladder R33.9 Additional Codes Asthma Control Questionnaire - ACT Interpretation: Negative ([id number]) JOSE-7 Assessment Billing - JOSE-7 Assessment Tool: JOSE-7 Assessment 65007 ([id number]) PHQ-9 - 46612 - PHQ-9 Billing: Yes ([id number]) Assessment & Plan Assessment & Plan (1) Adult general medical exam: Code(s): Z00.00 - Encounter for general adult medical examination without abnormal findings Category: Medical Plan: 44-year-old male presents for complete physical exam Exam within normal limits Encouraged healthy diet with active lifestyle and plenty of exercise (2) Borderline high cholesterol: Code(s): E78.9 - Disorder of lipoprotein metabolism, unspecified Category: Medical Plan: LDL cholesterol is mildly elevated 108 Encouraged diet low in saturated fats and cholesterol (3) Urinary frequency: Code(s): R35.0 - Frequency of micturition Category: Medical (4) Screening for prostate cancer: Code(s): Z12.5 - Encounter for screening for malignant neoplasm of prostate Category: Medical (5) Incomplete emptying of bladder: Code(s): R33.9 - Retention of urine, unspecified Category: Medical Plan Some frequent urination at night and likely incomplete emptying with smaller volumes. No dysuria. Trial alfuzosin Taper off fluids after dinnertime. Avoid salty meals Empty bladder fully before bed Awaiting PSA results which are still pending. Referred to urology Orders: Orders Comprehensive [place]. Panel Fast Today Z00.00 - Encounter for general adult medical examination without abnormal findings Complete Blood Count Auto Diff Today Z00.00 - Encounter for general adult medical examination without abnormal findings Microalbumin, Random (w Creat) Today I10 - Essential (primary) hypertension Prostate Specific Antigen Scr Today Z12.5 - Encounter for screening for malignant neoplasm of prostate Lipid Panel Today Z00.00 - Encounter for general adult medical examination without abnormal findings TSH reflex Free T4 Today Z00.00 - Encounter for general adult medical examination without abnormal findings UA CC w/rflx Micro + Cult Today Z00.00 - Encounter for general adult medical examination without abnormal findings Referrals Urology Referral R33.9 - Retention of urine, unspecified, R35.0 - Frequency of micturition Medications: New alfuzosin ER administer after the same meal each day 10 mg PO DAILY 30 tabs 3RF 30 days
[2025-08-27 09:07] VITALS: BP 110/60; PULSE 73; RESP 14; TEMP 36.8; O2SAT 99; BMI 28.1
== END 2025-08-27 09:33 | disposition home or self-care (01) ==
LOC: HO.HMCFM 09:00
PROVIDERS: PCP Family Medicine; Visit Provider Family Medicine
DX: Z00.00 Encounter for general adult medical examination without abnormal findings (principal); E78.9 Disorder of lipoprotein metabolism, unspecified; R35.0 Frequency of micturition; R33.9 Retention of urine, unspecified; Z12.5 Encounter for screening for malignant neoplasm of prostate

== ENCOUNTER → 2025-08-27 08:59 | Outpatient (BNVA) | payer OTHER, SELFPAY | PROVIDERS: PCP Family Medicine; Visit Provider Family Medicine | DX: Z13.31 Encounter for screening for depression (principal); Z13.39 Encounter for screening examination for other mental health and behavioral disorders; Z71.89 Other specified counseling | CPT/HCPCS: 96127; 96160 ==